=== PATIENT | female | born 1975 | race Caucasian/White ===

== ENCOUNTER 2016-08-25 11:23 | Outpatient (CLI) | payer BC ==
[~2016-08-25] VITALS: Ht 162.6 cm; Wt 88.0 kg
[~2016-08-25 11:23] MED LIST: HMLI SC; METF-384 PO
--- NOTE | 2016-08-25 13:53 | DIAGNOSTIC IMAGING REPORT ---
Limited ultrasound LIMITED (US) CLINICAL HISTORY: vag leaking of fluid. Neg FERN. amnios ure fluid leak TECHNIQUE: Transabdominal ultrasound COMPARISON STUDY: None FINDINGS: Amniotic fluid index 16.2 cm. Fundal placenta. Single, viable intrauterine in cephalic presentation. heart rate 155 bpm. The terminal cervix is nonvisualized IMPRESSION: 1. Nonvisualization of the maternal cervix. 2. Single, viable intrauterine in cephalic presentation. 3. Amniotic fluid index 16.2 cm Electronically signed by: Lamine Bennett M.D. 08/25/2016 1:51 PM Dictated Date/Time: 08/25/2016 1:48 PM
[2016-08-25 14:25] VITALS: Ht 162.6 cm; Wt 88.0 kg
--- NOTE | 2016-08-25 14:46 | Progress Note ---
Progress Note Pt seen and evaluated for ?PPROM at 31 + weeks NST CAT1 Ctx; None VE; closed/thick /post No gross pooling. neg fern, neg Amniosure MABLE ; >16 Pt discharged home with instructions
--- NOTE | 2016-08-25 14:48 | Discharge Instructions ---
Discharge Instructions Admission Reason for Admission: Contractions Discharge Discharge Diagnosis / Problem: r/o premature rapture of membranes Discharge Goals Goal(s): Continuing OB care Activity Recommendations Activity Limitations: as noted below ACTIVITY RECOMMENDATIONS: See Labor Sheet. SPECIAL CARE INSTRUCTIONS: Call Doctor if: * Regular contractions every 5 minutes or greater than contractions in one hour. * Bleeding * Water breaks or is leaking * Decreased movement * Fever >100.4 degrees F * Pain not relieved by routine measures or pain medication ordered. FOLLOW UP VISIT: Return to Labor and Delivery on for /call for appointment time . Follow-up Visit with: When: . Current Hospital Diet Patient's current hospital diet: Regular OB Diet Discharge Diet Recommended Diet: Regular Diet Pending Studies Studies pending at discharge: no Medical Emergencies . Who to Call and When: Medical Emergencies: If at any time you feel your situation is an emergency, please call 911 immediately. . Non-Emergent Contact Non-Emergency issues call your: Specialist . . "Provider Documentation" section prepared by Ricky Magallanes. VTE Core Measure Inpt VTE Proph given/why not?: Treatment not indicated
[2016-08-25] MEDS ORDERED: INSDGI SC (15:01)
[2016-08-25] MEDS ORDERED: NVLG (15:01)
== END 2016-08-25 14:50 | disposition home or self-care (01) ==
LOC: C.LD 11:23 → C.OPB 11:23
PROVIDERS: ATTEND Obstetrics & Gynecology
DX: Z34.83 Encounter for supervision of other normal pregnancy, third trimester (principal)

== ENCOUNTER → 2017-10-05 | Outpatient (CLI) | payer OTHER ==
[~2017-10-05] MED LIST changes: -HMLI SC; +INSDGI SC; -METF-384 PO; +NVLG
--- NOTE | 2017-10-05 15:38 | DIAGNOSTIC IMAGING REPORT ---
LUMBAR SPINE MRI HISTORY: ACUTE DONNELL LOW BACK PAIN/L SIDED SCIATICA TECHNIQUE: Multiplanar multisequence MRI of the lumbar spine was performed without the use of contrast. COMPARISON: None. FINDINGS: For the purpose of the report the L5-S1 disc space will be located on axial image 23 of 25. No fracture or subluxation. The conus terminates at the T12-L1 disc space. Disc desiccation at L4-L5. Severe disc space narrowing at L5-S1. Endplate signal abnormality and mild paravertebral edema at L5-S1 is likely due to the degenerative change. There are no bony erosions identified. Mild facet degenerative changes at the lower lumbar spine. L1-L2: No significant central canal or neural foraminal narrowing. L2-L3: No significant central canal or neural foraminal narrowing. L3-L4: No significant central canal or neural foraminal narrowing. L4-L5: Small focal central disc protrusion without significant central canal or neural foraminal narrowing. This does not abut the transiting nerve roots. L5-S1: There is a 12 x 6 mm central/left paracentral focal disc protrusion which abuts the transiting left S1 nerve root. This results in mild central canal narrowing. No significant neural foraminal narrowing. IMPRESSION: 1. A 12 x 6 mm central/left paracentral focal disc protrusion at L5-S1 which abuts the transiting left S1 nerve root and results in mild central canal narrowing. 2. A small focal central disc protrusion at L4-L5 without significant central canal or neural foraminal narrowing. Electronically signed by: Gonzalez Edge M.D. 10/05/2017 3:37 PM Dictated Date/Time: 10/05/2017 3:31 PM
== END | disposition home or self-care (01) ==
LOC: C.MRI 14:47
PROVIDERS: ATTEND Family Medicine
DX: R29.898 Other symptoms and signs involving the musculoskeletal system (principal); M54.42 Lumbago with sciatica, left side; M51.27 Other intervertebral disc displacement, lumbosacral region

== ENCOUNTER 2019-06-21 09:46 | Inpatient (IN) ==
[2019-06-21] MEDS ORDERED: SODIUM CHLORIDE 0.9% 1000ML 1,000 ML IV SCH ×2 (10:30→15:15)
--- NOTE | 2019-06-21 10:48 | XRay Report ---
XR chest 1V portable CLINICAL HISTORY: weakness dyspnea COMPARISON STUDY: No previous studies for comparison. FINDINGS: The bones soft tissues and hemidiaphragms are normal. The cardiomediastinal silhouette is n ormal. The lungs are clear. The pulmonary vasculature is normal. IMPRESSION: Negative chest. The above report was generated using voice recognition software. It may contain grammatical, syntax or spelling errors. Electronically signed by: Lamine Bennett M.D. 06/21/2019 10:47 AM
[2019-06-21 11:19] LABS: Basophils # (auto) 0.02 K/uL (0-0.2); Basophils % (auto) 0.3 %; Eosinophils # (auto) 0.03 K/uL (0-0.5); Eosinophils % (auto) 0.4 %; Hematocrit (blood only) 44.2 % (37-47); Hemoglobin 15.9 g/dL (12.0-16.0); Immature Granulocytes # (auto) 0.03 K/uL (0.00-0.02); Immature Granulocytes % (auto) 0.4 %; Lymphocytes # (auto) 1.74 K/uL (1.2-3.4); Lymphocytes % (auto) 24.3 %; Mean Corpuscular Hemoglobin 30.3 pg (25-34); Mean Corpuscular Volume 84.2 fL (80-100); Mean Platelet Volume 11.6 fL (7.4-10.4); Monocytes # (auto) 0.34 K/uL (0.11-0.59); Monocytes % (auto) 4.8 %; Neutrophils # (auto) 4.99 K/uL (1.4-6.5); Neutrophils % (auto) 69.8 %; Platelet Count 228 K/uL (130-400); RDW Coefficient of Variation 13.6 % (11.5-14.5); RDW Standard Deviation 41.7 fL (36.4-46.3); Red Blood Count 5.25 M/uL (4.2-5.4); White Blood Count 7.15 K/uL (4.8-10.8)
[2019-06-21 11:48] LABS: Alanine Aminotransferase 18 U/L (12-78); Albumin Level 3.7 gm/dl (3.4-5.0); BUN Creatinine Ratio 15.8 (10-20); Blood Urea Nitrogen 14 mg/dl (7-18); Carbon Dioxide 11 mmol/L (21-32); Chloride 107 mmol/L (98-107); Creatinine Clr Calc Pharmacy 73.5 ml/min; Est GFR (African American) 95.9; Est GFR (Non-African American) 82.7; Glucose 305 mg/dl (70-99); Sodium 135 mmol/L (136-145)
[2019-06-21 11:53] LABS: Albumin Globulin Ratio 0.9 (0.9-2); Alkaline Phosphatase 161 U/L (45-117); Bilirubin,Total 0.7 mg/dl (0.2-1); Globulin 4.1 gm/dl (2.5-4.0); Total Protein 7.8 gm/dl (6.4-8.2)
--- NOTE | 2019-06-21 12:11 | History & Physical Report ---
Date of Service June 21, 2019 Assessment & Plan (1) DKA (diabetic ketoacidoses): (2) DM type 1 (diabetes mellitus, type 1): (3) DVT prophylaxis: History of Present Illness Primary Care Provider: Bernadette Canales DO Allergies Allergy/AdvReac Type Severity Reaction Status Date / Time erythromycin base Allergy Unknown hives Verified 06/21/19 11:15 Home Medications Home Medications Medication Instructions Recorded Confirmed Type acetaminophen [Tylenol Extra 500 mg PO Q6H PRN 06/21/19 06/21/19 History Strength] gabapentin 300 mg PO TID PRN 06/21/19 06/21/19 History Past Med/Surg History Social History Feels Safe at Home: Yes Smoking Status: Never smoker Results & Data Vital Signs (Past 12 Hours) Vital Signs Pulse Resp BP Pulse Ox 06/21/19 10:22 99 06/21/19 09:51 107 H 22 121/86 99 Diagnostic Findings XR chest 1V portable CLINICAL HISTORY: weakness dyspnea COMPARISON STUDY: No previous studies for comparison. FINDINGS: The bones soft tissues and hemidiaphragms are normal. The cardiomediastinal silhouette is normal. The lungs are clear. The pulmonary vasculature is normal. IMPRESSION: Negative chest. ECG Additional Comments: 21-JUN-2019 10:29:38 [facility]-EDSTAT ROUTINE RETRIEVAL Sinus tachycardia Possible Left atrial enlargement Nonspecific T wave abnormality Abnormal ECG No previous ECGs available 25mm/s 10mm/mV 150Hz 9.0.9 12SL 241 ALEX: 3 Referred by: REFERRED SELF Unconfirmed Vent. rate 101 BPM FL interval 126 ms QRS duration 80 ms QT/QTc 338/438 ms P-R-T axes 50 66 19 PG Care Time/CCT Total # of Minutes Spent Total Time Spent with Patient: Total time spent is greater than 50% in coordination of care (as documented) at patient's floor/unit and/or counseling patient:
[2019-06-21] MEDS ORDERED: SODIUM CHLORIDE 0.9% 1000ML 1,000 ML IV ONE (12:22)
[2019-06-21 13:08] LABS: Appearance Urine Clear (Clear); Bacteria Urine Automated Negative (Negative); Bilirubin Urine Negative (Negative); Blood Urine Negative (Negative); Color Urine Yellow; Glucose Urine UA 3+ (Negative); Leukocyte Esterase Urine Negative (Negative); Nitrite Urine Negative (Negative); Protein Urine 1+ (Negative); RBC Urine Automated 0-4 /hpf (0-4); Specific Gravity Urine 1.038 (1.000-1.030); Urobilinogen Urine Negative (Negative)
[2019-06-21 13:10] LABS: Magnesium 1.9 mg/dl (1.8-2.4)
[2019-06-21 13:18] LABS: Ketones Urine 4+ (Negative)
[2019-06-21] MEDS ORDERED: CARBOHYDRATES FOR HYPOGLYCEMIA PO PRN (13:25)
[2019-06-21] MEDS ORDERED: GLUCOSE 10 TABS/TUBE PO PRN (13:25)
[2019-06-21] MEDS ORDERED: GLUCAGON FOR INJ 1 MG VIAL SQ PRN (13:25)
[2019-06-21] MEDS ORDERED: DEXTROSE 50% 50 ML SYRINGE IV PRN (13:25)
[2019-06-21] MEDS ORDERED: GLUCOSE 40% GEL 15 GM TUBE PO PRN (13:25)
[2019-06-21] MEDS ORDERED: ED DKA INSULIN DRIP ONE (13:25)
[2019-06-21] MEDS ORDERED: INSULIN REGULAR 250 UNITS in SODIUM CHLORIDE 0.9% 247.5 ML IV SCH ×2 (13:30→21:00)
[2019-06-21] MEDS ORDERED: D5W AND 1/2NSS + 20MEQ KCL 20 MEQ/1,000 ML BAG IV SCH (13:30)
[2019-06-21] MEDS ORDERED: DKA GOAL RANGE 150-250 mg/dl ONE ×2 (13:31→21:03)
[2019-06-21] MEDS ORDERED: NovoLIN-R BOLUS FROM BAG IV ONE (13:45)
[2019-06-21 13:47] LABS: Estimated Average Glucose 358 mg/dl; Hemoglobin A1C 14.1 % (4.5-5.6)
[2019-06-21 13:49] LABS: Phosphorus 2.4 mg/dl (2.5-4.9)
--- NOTE | 2019-06-21 14:02 | History & Physical Report ---
Date of Service June 21, 2019 Assessment & Plan (1) DKA (diabetic ketoacidoses): (2) High anion gap metabolic acidosis: This is a 43 yr old F who has significant PMH of type 1.5DM, neuropathy, HLD, hx of gastric bypass who presents to [facility] 08/19 to ill feeling and hyperglycemia. She complains of nausea, polydipsia, polyuria, weakness, arthralgias and myalgias that started Tuesday. In ED inital glucose was 326, tachycardic but otherwise hemodynamically stable. CBC relatively unremarkable, K 4.0, AG 17, CO2 11, Cr 0.87, phos 2.4, A1C 14.1, UA +4 ketones, +1 protein, Spec grav 1.038 CXR no acute abnormality. Received 1.5L of IVF upon my examination with improvement in glucose to 221. ABG and repeat BMP ordered which revealed pH 7.26, CO2 21, bicarb 9, gap improving to 14 admit to PCU Give 6 units bolus insulin x1 now Insulin regimen Lantus/Novolog regimen as per Dr. 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 Canales upon discharge; pt also needs follow up with endocrinology at discharge for initial eval Patient was seen and examined in collaboration with Dr. Mike, please see addendum History of Present Illness Chief Complaint: Ill feeling and hyper Primary Care Provider: Bernadette Canales, DO This is a 43 yr old F who has significant PMH of type 1.5DM, neuropathy, HLD, hx of gastric bypass who presents to [facility] 08/19 to ill feeling and hyperglycemia. She complains of nausea, polydipsia, polyuria, weakness, arthralgias and myalgias that started Tuesday. Further developed SOB with exertion since last evening. Sx continued to worsen with profound hyperglycemia which prompted ED evaluation. She was dx at age 30 with diabetes initially treated with metformin and long acting insulin. Had gastric bypass in 2012 in hopes to cure diabetes. For past several months tried to tx diabetes with diet alone, specifically ketogenic diet. "I know its not working, I know I need insulin." She has been off insulin regimen for past several months. Denies any recent illness. Denies fever, sweats, URI sx, cough, hemopytsis, chest pain, sob at rest, palpitations, emesis, diarrhea, dysuria, hematuria, melena, hematochezia. Overall appetite has been normal. Previously has seen end worker in [place], but most recently has been managed by PCP. In ED inital glucose was 326, tachycardic but otherwise hemodynamically stable. CBC relatively unremarkable, K 4.0, AG 17, CO2 11, Cr 0.87, phos 2.4, A1C 14.1, UA +4 ketones, +1 protein, Spec grav 1.038 CXR no acute abnormality. Received 1.5L of IVF upon my examination with improvement in glucose to 221. Allergies Allergy/AdvReac Type Severity Reaction Status Date / Time erythromycin base Allergy Unknown hives Verified 06/21/19 11:15 Home Medications Home Medications Medication Instructions Recorded Confirmed Type acetaminophen [Tylenol Extra 500 mg PO Q6H PRN 06/21/19 06/21/19 History Strength] cholecalciferol (vitamin D3) 2,000 unit PO DAILY 06/21/19 06/21/19 History [Vitamin D3] cyanocobalamin (vitamin B-12) 1,000 mcg PO DAILY 06/21/19 06/21/19 History [Vitamin B-12] gabapentin 300 mg PO TID PRN 06/21/19 06/21/19 History Past Med/Surg History Medical History Diabetes mellitus type 1.5 HLD (hyperlipidemia) Neuropathy, diabetic Surgical History History of x 2 History of gastric bypass 2012 @ [facility] [place] Family History Grandmother (Maternal) Diabetes Father Coronary heart disease Stroke Hx of CABG Mother Levi Ruby infection Sister Hypothyroidism Social History Preferred Language: Bulgarian Communication Ability: Effective 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 Employment Required: No Beliefs That Will Affect Care: None marital status: Current Living Situation: Spouse current occupational status: employed Other Information That Helps Us Care for You: No Feels Safe at Home: Yes Safety Concerns: Feels Safe At This Time Smoking Status: Never smoker Do You Dip or Chew Tobacco: No ; Second Hand Exposure: No ; Tobacco Cessation Education Requested by Patient: No Hx Alcohol Use: No Hx Substance Use: No Review of Systems Review of Systems: All systems reviewed & are unremarkable except as noted in HPI & below Physical Exam Physical Exam: CONSTITUTIONAL: WNWD, vitals as above, generally well- appearing EYES: EOMI bilaterally, PERRL, normal conjunctivae, no scleral icterus ENT: external ear and nose normal, oropharynx clear NECK: trachea midline RESPIRATORY: clear to auscultation bilaterally, no crackles, rales or wheezes, normal respiratory effort CARDIOVASCULAR: regular rate and rhythm, S1 and 2 heard without murmurs, gallops or rubs, no JVD, no peripheral edema GASTROINTESTINAL: normal bowel sounds, soft, nontender, nondistended MUSCULOSKELETAL: strength 5/5 throughout, head is normocephalic and atraumatic SKIN: warm and dry NEUROLOGIC: CN 2-12 grossly intact, no sensory deficit, normal cognition, normal speech PSYCHIATRIC: alert cooperative and oriented to person, place and time. Results & Data Vital Signs (Past 12 Hours) Vital Signs Pulse Resp BP Pulse Ox 06/21/19 10:22 99 06/21/19 09:51 107 H 22 121/86 99 Laboratory Results Short CBC 06/21/19 06/21/19 06/21/19 Range/Units 10:50 10:50 12:32 WBC 7.15 (4.8-10.8) K/uL Hgb 15.9 (12.0-16.0) g/dL Hct 44.2 (37-47) % Plt Count 228 (130-400) K/uL Potassium TNP 4.0 Glucose 305 H* (70-99) mg/dl AST TNP Beta-Hydroxybutyric Acd (0.2-2.81) mg/dl BMP 06/21/19 06/21/19 10:50 12:32 Sodium 135 L Potassium TNP 4.0 Chloride 107 Carbon Dioxide 11 L BUN 14 Creatinine 0.87 Glucose 305 H* Calcium 9.0 Liver Function 06/21/19 06/21/19 Range/Units 10:50 12:32 Total Bilirubin 0.7 (0.2-1) mg/dl AST TNP 13 L ALT 18 (12-78) U/L Alkaline Phosphatase 161 H (45-117) U/L Albumin 3.7 (3.4-5.0) gm/dl Urine 06/21/19 Range/Units 12:15 Urine Color Yellow Urine Appearance Clear (Clear) Urine pH 5.0 (4.5-7.5) Ur Specific [employer] 1.038 H (1.000-1.030) Urine Protein 1+ H (Negative) Urine Glucose (UA) 3+ H (Negative) Diagnostic Findings CXR: IMPRESSION: Negative chest. Medications Administered Discontinued Medications Sodium Chloride (Nss 1000ml) 1,000 mls @ 999 mls/hr IV .Q1H1M TRINY Stop: 06/21/19 11:30 Last Infusion: 06/21/19 12:01 Dose: 0 mls/hr Documented by: [id number] Admin: 06/21/19 10:54 Dose: 999 mls/hr Documented by: [id number] Sodium Chloride (Nss 1000ml) 1,000 mls @ 999 mls/hr IV .Q1H1M ONE Stop: 06/21/19 13:22 Last Admin: 06/21/19 12:44 Dose: 999 mls/hr Documented by: [id number] ECG Rate (beats per minute): 101 Rhythm: sinus tachycardia Code Status & VTE Plan Code Status Full Code VTE Prophylaxis Plan VTE Prophylaxis will be ordered: Yes Supervising Physician Co-Signing Physician Notes I have seen and examined the patient and have discussed the case with the provider above. I agree with the assessment and plan as stated. 43 yo F with DM thought to be EMIR who presents in DKA with a HbA1C 14. She has been managing her diabetes with a ketogenic diet for many months now, but describes worsening SOB, neuropathy in her lower extremities, polydipsia and polyuria recently prompting her to present. Physical exam reveals a healthy and well- appearing oriented female in no acute distress. She denies any symptoms of infection. Lungs are clear to auscultation without increased respiratory effort, heart exam is normal, abdomen is soft, nontender and nondistended. We discussed the importance of being on insulin therapy on discharge and moving forward, and she verbalized understanding with intent to comply. Assessment is DKA in a Type 1.5 (EMIR) Diabetic patient 2/2 noncompliance with insulin therapy. Agree with plan as above to continue with basal/bolus insulin therapy while hospitalized including carbohydrate coverage for meals. Trend labwork again this evening to ensure pH and BMP components are trending in the right direction. She is clinically well and with a closed gap and improved bicarbonate and pH, tolerating food she will likely be well enough for discharge in the next 1-2 days. PCP for follow-up of annual eye screening and monitoring for proteinuria. Goal A1C 6.5 in the next 3-6 months. Rashid,
[2019-06-21] MEDS ORDERED: NovoLIN-R INSULIN PER UNIT CHARGE IV ONE (14:15)
[2019-06-21 14:30] LABS: Base Excess ABG -15.8 mEq/L (-9-1.8); HCO3 ABG 9 mmol/L (19-24); Oxygen Saturation ABG 96.6 % (90-95); PCO2 ABG 21 mmHg (35-46); PO2 ABG 90 mm/Hg (80-95); pH ABG 7.26 (7.35-7.45)
[2019-06-21 14:31] LABS: Allen Test Pos (Pos)
[2019-06-21 14:39] LABS: BUN Creatinine Ratio 16.3 (10-20); Creatinine Clr Calc Pharmacy 92.7 ml/min; Est GFR (African American) 125.3; Est GFR (Non-African American) 108.1
[2019-06-21] MEDS ORDERED: ONDANSETRON INJ 2 MG/ML 2 ML VIAL IV PRN (16:10)
[2019-06-21] MEDS ORDERED: GABAPENTIN 300 MG CAP PO PRN (16:10)
[2019-06-21] MEDS ORDERED: INSULIN ASPART 100 UNITS/ML 3 ML PEN SC SCH ×3 (16:30→21:00)
[2019-06-21] MEDS: ACETAMINOPHEN 325 MG TAB PO PRN (17:29)
--- NOTE | 2019-06-21 17:45 | Emergency Department Note ---
Entered by Babak Taylor acting as a scribe for History of Present Illness General Chief complaint: Hyperglycemia Stated complaint: DIABETIC COMPLICATIONS,HYPERGLYCEMIA,WEAK&TIRED Time Seen by Provider: 06/21/19 10:16 Source: patient History of Present Illness Provider complaint: Hyperglycemia Onset (ago): hour(s) (This morning) Location: head Severity: similar to prior episodes Pain Consistency: + constant Maximum Pain Intensity: 8 Current Pain Intensity: 8 Relieved By: + none Exacerbated By: + other (Exertion) Associated symptoms: + shortness of breath, + weakness and + other (Increased ur ination) The patient is a 43 year old female w/ PMHx PPROM, incomplete miscar riage, and type 1 diabetes, who presents to the ED w/ CC of constant hyperglycemia that she noticed this morning. The patient states that her sugar this morning was 367 and she feels similar to her past episodes of hyperglycemia. She also notes that she was fasting for blood work that was supposed to be done today when this read was taken. The patient endorses generalized weakness and fatigue as well as increased urinary output. The patient also is short of breath, especially when she is exerting herself or moving. The patient rates her symptoms as an 8/10 and notes nothing has helped relieve them. The patient is an insulin dependent diabetic but has not been taking insulin for the past couple of months due to financial reasons and how it makes her feel. She denies any chest pain. Home Medications Home Medications Medication Instructions Recorded Confirmed Type acetaminophen [Tylenol Extra 500 mg PO Q6H PRN 06/21/19 06/21/19 History Strength] cholecalciferol (vitamin D3) 2,000 unit PO DAILY 06/21/19 06/21/19 History [Vitamin D3] cyanocobalamin (vitamin B-12) 1,000 mcg PO DAILY 06/21/19 06/21/19 History [Vitamin B-12] gabapentin 300 mg PO TID PRN 06/21/19 06/21/19 History Allergies Allergy/AdvReac Type Severity Reaction Status Date / Time erythromycin base Allergy Unknown hives Verified 06/21/19 11:15 Past Med/Surg History Medical History Diabetes mellitus type 1.5 HLD (hyperlipidemia) Neuropathy, diabetic Surgical History History of x 2 History of gastric bypass 2013 [place] [facility] [place] Family History Grandmother (Maternal) Diabetes Father Coronary heart disease Stroke Hx of CABG Mother Levi Ruby infection Sister Hypothyroidism Social History Preferred Language: Sinhala Communication Ability: Effective 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 and A total of 10 systems reviewed and were otherwise negative Physical Exam Vital Signs Vital Signs - 24 hr 06/21/19 09:51 06/21/19 10:00 06/21/19 10:22 Temperature Source Oral Pulse Rate 107 H Respiratory Rate 22 Respiratory Effort / Characteristics Non-Labored Spontaneous Respiratory Depth Normal Blood Pressure 121/86 Blood Pressure Mean 97 Blood Pressure Position Sitting Pulse Oximetry 99 99 Oxygen Delivery Method Room Air Room Air Sepsis Recent Fever Within 48 Hours No Sepsis Action Taken by Nursing No Action Required 06/21/19 10:52 06/21/19 10:54 06/21/19 11:00 Temperature Source Pulse Rate 94 H 93 H 92 H Respiratory Rate 15 19 21 Respiratory Effort / Characteristics Respiratory Depth Blood Pressure 140/93 129/98 Blood Pressure Mean 102 106 Blood Pressure Position Pulse Oximetry Oxygen Delivery Method Sepsis Recent Fever Within 48 Hours Sepsis Action Taken by Nursing 06/21/19 11:01 06/21/19 11:30 06/21/19 12:00 Temperature Source Pulse Rate 97 H 88 93 H Respiratory Rate 15 15 Respiratory Effort / Characteristics Respiratory Depth Blood Pressure 133/79 Blood Pressure Mean 106 Blood Pressure Position Pulse Oximetry Oxygen Delivery Method Sepsis Recent Fever Within 48 Hours Sepsis Action Taken by Nursing 06/21/19 12:39 06/21/19 13:00 06/21/19 13:01 Temperature Source Pulse Rate 101 H 89 97 H Respiratory Rate 20 17 14 Respiratory Effort / Characteristics Respiratory Depth Blood Pressure 135/94 Blood Pressure Mean 104 Blood Pressure Position Pulse Oximetry Oxygen Delivery Method Sepsis Recent Fever Within 48 Hours Sepsis Action Taken by Nursing 06/21/19 13:30 06/21/19 13:31 06/21/19 14:00 Temperature Source Pulse Rate 103 H 102 H 90 Respiratory Rate 17 Respiratory Effort / Characteristics Respiratory Depth Blood Pressure 162/95 H 138/90 Blood Pressure Mean 114 107 Blood Pressure Position Pulse Oximetry Oxygen Delivery Method Sepsis Recent Fever Within 48 Hours Sepsis Action Taken by Nursing 06/21/19 14:01 06/21/19 14:30 06/21/19 14:31 Temperature Source Pulse Rate 91 H 93 H 94 H Respiratory Rate 21 16 20 Respiratory Effort / Characteristics Respiratory Depth Blood Pressure 137/84 Blood Pressure Mean 91 Blood Pressure Position Pulse Oximetry Oxygen Delivery Method Sepsis Recent Fever Within 48 Hours Sepsis Action Taken by Nursing GENERAL: Fatigued appearing, well nourished, non-toxic. EYE EXAM: Normal conjunctiva. PERRL, no anisocoria and EOM's grossly intact w/o pain. OROPHARYNX: Moist mucus membranes. Grossly normal dentition. NECK: Supple, no nuchal rigidity, no adenopathy, non-tender. No signs of meningismus. LUNGS: Clear to auscultation. Normal chest wall mechanics. HEART: NSR, no MRG. ABDOMEN: Abdomen soft, non-tender, normo-active bowel sounds, no masses, no rebound or guarding. BACK: No CVA TTP. SKIN: No rashes and no bruising. UPPER EXTREMITIES: Upper extremities are grossly normal. LOWER EXTREMITIES: No pitting edema. No calf pain. NEURO EXAM: A&O x3, cranial nerves II-XII grossly intact, normal speech, moves all 4 extremities on command w/o issue. Course Course 1030: Past medical records reviewed. The patient was evaluated in room A11A, and a complete history and physical examination were performed. 1138: I updated the patient with results and the plan of care which she is agreeable with. 1210: I spoke to Dr. Dimas Cee [facility] Hospitalist about the patient's case and she agreed to accept the patient for further evaluation. Consultations Consultation #1: I spoke to Dr. Dimas Cee [facility] Hospitalist about the patient's case and she agreed to accept the patient for further evaluation. Time: 12:10 Administered Medications Acetaminophen (Tylenol) 650 mg PO Q4H PRN PRN Reason: Pain or Fever Stop: 07/21/19 16:09 Last Admin: 06/21/19 17:29 Dose: 650 mg Documented by: [id number] Sodium Chloride (Nss 1000ml) 1,000 mls @ 150 mls/hr IV .Q6H40M [facility] Stop: 06/21/19 21:54 Last Admin: 06/21/19 16:01 Dose: 150 mls/hr Documented by: [id number] Insulin Aspart (Novolog Flexpen) 0 units SC ACHS [facility] Stop: 07/21/19 16:29 Last Admin: 06/21/19 17:20 Dose: 4 units Documented by: [id number] Cosigned by: [id number] Discontinued Medications Sodium Chloride (Nss 1000ml) 1,000 mls @ 999 mls/hr IV .Q1H1M [facility] Stop: 06/21/19 11:30 Last Infusion: 06/21/19 12:01 Dose: 0 mls/hr Documented by: [id number] Admin: 06/21/19 10:54 Dose: 999 mls/hr Documented by: [id number] Sodium Chloride (Nss 1000ml) 1,000 mls @ 999 mls/hr IV .Q1H1M ONE Stop: 06/21/19 13:22 Last Infusion: 06/21/19 14:20 Dose: 0 mls/hr Documented by: [id number] Admin: 06/21/19 12:44 Dose: 999 mls/hr Documented by: [id number] Insulin Human Regular 250 (units/ Sodium Chloride) 250 mls @ 6.3 mls/hr IV .Q24H [facility]; Protocol Stop: 07/21/19 13:29 Last Admin: 06/21/19 15:18 Dose: Not Given Documented by: [id number] Potassium Chloride/Dextrose/Sod Cl (D5w And 1/2nss + 20meq Kcl) 20 meq in 1,000 mls @ 250 mls/hr IV .Q4H [facility] Stop: 07/21/19 13:29 Last Infusion: 06/21/19 16:12 Dose: 0 mls/hr Documented by: [id number] Admin: 06/21/19 15:15 Dose: 250 mls/hr Documented by: [id number] Insulin Human Regular (Novolin R U-100 Per Unit) 6 units IV NOW ONE Stop: 06/21/19 14:16 Last Admin: 06/21/19 15:16 Dose: 6 units Documented by: [id number] Cosigned by: [id number] Miscellaneous (Insulin Protocol Dka Goal Range) 1 ea N/A ONE ONE Stop: 06/21/19 13:32 Last Admin: 06/21/19 15:18 Dose: Not Given Documented by: [id number] Critical Care Time Critical Care Time: Yes Total Critical Care Time: 90 I have personally spent greater than 90 minutes of critical care time in the direct management of this patient. This includes bedside care, interpretation of diagnostic studies, and testing, discussion with consultants, patient, and family members, and other required patient management activities. This 90 minutes is in excess of all separately billable procedures. Medical Decision Making Differential Diagnosis Differential Diagnosis includes but is not limited to dehydration, stroke, anemia, hypoglycemia, hyponatremia, hypernatremia, urinary tract infection, pneumonia, bronchitis, sepsis, gastroenteritis, additional abdominal pathology, metabolic abnormalities and infections. Medical Records Attestation: I reviewed the patient's medical records. Home Medications Current Medication List: was personally reviewed by me Laboratory Data Attestation: I reviewed the patient's lab results. Result diagrams: 06/21/19 10:50 06/21/19 13:57 Lab Results 06/21/19 06/21/19 06/21/19 Range/Units 10:09 10:10 10:50 WBC 7.15 (4.8-10.8) K/uL RBC 5.25 (4.2-5.4) M/uL Hgb 15.9 (12.0-16.0) g/dL Hct 44.2 (37-47) % MCV 84.2 (80-100) fL MCH 30.3 (25-34) pg MCHC 36.0 (32-36) g/dL RDW Std Deviation 41.7 (36.4-46.3) fL RDW Coeff of Jocelyn 13.6 (11.5-14.5) % Plt Count 228 (130-400) K/uL MPV 11.6 H (7.4-10.4) fL Immature Gran % (Auto) 0.4 % Neut % (Auto) 69.8 % Lymph % (Auto) 24.3 % [place] % (Auto) 4.8 % Eos % (Auto) 0.4 % Baso % (Auto) 0.3 % Immature Gran # (Auto) 0.03 H (0.00-0.02) K/uL Neut # (Auto) 4.99 (1.4-6.5) K/uL Lymph # (Auto) 1.74 (1.2-3.4) K/uL [place] # (Auto) 0.34 (0.11-0.59) K/uL Eos # (Auto) 0.03 (0-0.5) K/uL Baso # (Auto) 0.02 (0-0.2) K/uL ABG pH (7.35-7.45) ABG pCO2 (35-46) mmHg ABG pO2 (80-95) mm/Hg ABG HCO3 (19-24) mmol/L ABG O2 Saturation (90-95) % ABG Base Excess (-9-1.8) mEq/L Luis M Test (Pos) Barometric Pressure mm/Hg Oxygen Given Sodium (136-145) mmol/L Potassium Chloride (98-107) mmol/L Carbon Dioxide (21-32) mmol/L Anion Gap (3-11) BUN (7-18) mg/dl Creatinine (0.6-1.2) mg/dl Est Cr Clr Drug Dosing ml/min Est GFR ( Amer) Est GFR (Non-Af Amer) BUN/Creatinine Ratio (10-20) Glucose (70-99) mg/dl POC Glucose 326 H* 300 H (70-99) Estimat Average Glucose mg/dl Hemoglobin A1c (4.5-5.6) % Lactate (0.4-2.0) mmol/L Calcium (8.5-10.1) mg/dl Phosphorus (2.5-4.9) mg/dl Magnesium Total Bilirubin (0.2-1) mg/dl AST ALT (12-78) U/L Alkaline Phosphatase (45-117) U/L Total Protein (6.4-8.2) gm/dl Albumin (3.4-5.0) gm/dl Globulin (2.5-4.0) gm/dl Albumin/Globulin Ratio (0.9-2) Beta-Hydroxybutyric Acd (0.2-2.81) mg/dl TSH (0.300-4.500) uIu/ml Urine Color Urine Appearance (Clear) Urine pH (4.5-7.5) Ur Specific [place] (1.000-1.030) Urine Protein (Negative) Urine Glucose (UA) (Negative) Urine Ketones (Negative) Urine Blood (Negative) Urine Nitrite (Negative) Urine Bilirubin (Negative) Urine Urobilinogen (Negative) Ur Leukocyte Esterase (Negative) Urine WBC (Auto) (0-5) /hpf Urine RBC (Auto) (0-4) /hpf U Hyaline Cast (Auto) (0-5) /lpf U Epithel Cells (Auto) (0-5) /lpf Urine Bacteria (Auto) (Negative) 06/21/19 06/21/19 06/21/19 Range/Units 10:50 10:50 10:50 WBC (4.8-10.8) K/uL RBC (4.2-5.4) M/uL Hgb (12.0-16.0) g/dL Hct (37-47) % MCV (80-100) fL MCH (25-34) pg MCHC (32-36) g/dL RDW Std Deviation (36.4-46.3) fL RDW Coeff of Jocelyn (11.5-14.5) % Plt Count (130-400) K/uL MPV (7.4-10.4) fL Immature Gran % (Auto) % Neut % (Auto) % Lymph % (Auto) % [place] % (Auto) % Eos % (Auto) % Baso % (Auto) % Immature Gran # (Auto) (0.00-0.02) K/uL Neut # (Auto) (1.4-6.5) K/uL Lymph # (Auto) (1.2-3.4) K/uL [place] # (Auto) (0.11-0.59) K/uL Eos # (Auto) (0-0.5) K/uL Baso # (Auto) (0-0.2) K/uL ABG pH (7.35-7.45) ABG pCO2 (35-46) mmHg ABG pO2 (80-95) mm/Hg ABG HCO3 (19-24) mmol/L ABG O2 Saturation (90-95) % ABG Base Excess (-9-1.8) mEq/L Luis M Test (Pos) Barometric Pressure mm/Hg Oxygen Given Sodium 135 L (136-145) mmol/L Potassium TNP Chloride 107 (98-107) mmol/L Carbon Dioxide 11 L (21-32) mmol/L Anion Gap 17.0 H (3-11) BUN 14 (7-18) mg/dl Creatinine 0.87 (0.6-1.2) mg/dl Est Cr Clr Drug Dosing 73.5 ml/min Est GFR ( Amer) 95.9 Est GFR (Non-Af Amer) 82.7 BUN/Creatinine Ratio 15.8 (10-20) Glucose 305 H* (70-99) mg/dl POC Glucose (70-99) Estimat Average Glucose 358 mg/dl Hemoglobin A1c 14.1 H (4.5-5.6) % Lactate 0.7 (0.4-2.0) mmol/L Calcium 9.0 (8.5-10.1) mg/dl Phosphorus (2.5-4.9) mg/dl Magnesium TNP Total Bilirubin 0.7 (0.2-1) mg/dl AST TNP ALT 18 (12-78) U/L Alkaline Phosphatase 161 H (45-117) U/L Total Protein 7.8 (6.4-8.2) gm/dl Albumin 3.7 (3.4-5.0) gm/dl Globulin 4.1 H (2.5-4.0) gm/dl Albumin/Globulin Ratio 0.9 (0.9-2) Beta-Hydroxybutyric Acd (0.2-2.81) mg/dl TSH 1.150 (0.300-4.500) uIu/ml Urine Color Urine Appearance (Clear) Urine pH (4.5-7.5) Ur Specific [place] (1.000-1.030) Urine Protein (Negative) Urine Glucose (UA) (Negative) Urine Ketones (Negative) Urine Blood (Negative) Urine Nitrite (Negative) Urine Bilirubin (Negative) Urine Urobilinogen (Negative) Ur Leukocyte Esterase (Negative) Urine WBC (Auto) (0-5) /hpf Urine RBC (Auto) (0-4) /hpf U Hyaline Cast (Auto) (0-5) /lpf U Epithel Cells (Auto) (0-5) /lpf Urine Bacteria (Auto) (Negative) 12/05/19 12/05/19 12/05/19 Range/Units 12:15 12:31 12:32 WBC (4.8-10.8) K/uL RBC (4.2-5.4) M/uL Hgb (12.0-16.0) g/dL Hct (37-47) % MCV (80-100) fL MCH (25-34) pg MCHC (32-36) g/dL RDW Std Deviation (36.4-46.3) fL RDW Coeff of Jocelyn (11.5-14.5) % Plt Count (130-400) K/uL MPV (7.4-10.4) fL Immature Gran % (Auto) % Neut % (Auto) % Lymph % (Auto) % [place] % (Auto) % Eos % (Auto) % Baso % (Auto) % Immature Gran # (Auto) (0.00-0.02) K/uL Neut # (Auto) (1.4-6.5) K/uL Lymph # (Auto) (1.2-3.4) K/uL [place] # (Auto) (0.11-0.59) K/uL Eos # (Auto) (0-0.5) K/uL Baso # (Auto) (0-0.2) K/uL ABG pH (7.35-7.45) ABG pCO2 (35-46) mmHg ABG pO2 (80-95) mm/Hg ABG HCO3 (19-24) mmol/L ABG O2 Saturation (90-95) % ABG Base Excess (-9-1.8) mEq/L Luis M Test (Pos) Barometric Pressure mm/Hg Oxygen Given Sodium (136-145) mmol/L Potassium 4.0 Chloride (98-107) mmol/L Carbon Dioxide (21-32) mmol/L Anion Gap (3-11) BUN (7-18) mg/dl Creatinine (0.6-1.2) mg/dl Est Cr Clr Drug Dosing ml/min Est GFR ( Amer) Est GFR (Non-Af Amer) BUN/Creatinine Ratio (10-20) Glucose (70-99) mg/dl POC Glucose (70-99) Estimat Average Glucose mg/dl Hemoglobin A1c (4.5-5.6) % Lactate (0.4-2.0) mmol/L Calcium (8.5-10.1) mg/dl Phosphorus 2.4 L (2.5-4.9) mg/dl Magnesium 1.9 Total Bilirubin (0.2-1) mg/dl AST 13 L ALT (12-78) U/L Alkaline Phosphatase (45-117) U/L Total Protein (6.4-8.2) gm/dl Albumin (3.4-5.0) gm/dl Globulin (2.5-4.0) gm/dl Albumin/Globulin Ratio (0.9-2) Beta-Hydroxybutyric Acd (0.2-2.81) mg/dl TSH (0.300-4.500) uIu/ml Urine Color Yellow Urine Appearance Clear (Clear) Urine pH 5.0 (4.5-7.5) Ur Specific [place] 1.038 H (1.000-1.030) Urine Protein 1+ H (Negative) Urine Glucose (UA) 3+ H (Negative) Urine Ketones 4+ H (Negative) Urine Blood Negative (Negative) Urine Nitrite Negative (Negative) Urine Bilirubin Negative (Negative) Urine Urobilinogen Negative (Negative) Ur Leukocyte Esterase Negative (Negative) Urine WBC (Auto) 1-5 (0-5) /hpf Urine RBC (Auto) 0-4 (0-4) /hpf U Hyaline Cast (Auto) 5-10 H (0-5) /lpf U Epithel Cells (Auto) 10-20 H (0-5) /lpf Urine Bacteria (Auto) Negative (Negative) 06/21/19 06/21/19 06/21/19 Range/Units 12:57 13:46 13:56 WBC (4.8-10.8) K/uL RBC (4.2-5.4) M/uL Hgb (12.0-16.0) g/dL Hct (37-47) % MCV (80-100) fL MCH (25-34) pg MCHC (32-36) g/dL RDW Std Deviation (36.4-46.3) fL RDW Coeff of Jocelyn (11.5-14.5) % Plt Count (130-400) K/uL MPV (7.4-10.4) fL Immature Gran % (Auto) % Neut % (Auto) % Lymph % (Auto) % [place] % (Auto) % Eos % (Auto) % Baso % (Auto) % Immature Gran # (Auto) (0.00-0.02) K/uL Neut # (Auto) (1.4-6.5) K/uL Lymph # (Auto) (1.2-3.4) K/uL [place] # (Auto) (0.11-0.59) K/uL Eos # (Auto) (0-0.5) K/uL Baso # (Auto) (0-0.2) K/uL ABG pH 7.26 L (7.35-7.45) ABG pCO2 21 L (35-46) mmHg ABG pO2 90 (80-95) mm/Hg ABG HCO3 9 L (19-24) mmol/L ABG O2 Saturation 96.6 H (90-95) % ABG Base Excess -15.8 L (-9-1.8) mEq/L Luis M Test Pos (Pos) Barometric Pressure 730.3 mm/Hg Oxygen Given Room Air Sodium (136-145) mmol/L Potassium Chloride (98-107) mmol/L Carbon Dioxide (21-32) mmol/L Anion Gap (3-11) BUN (7-18) mg/dl Creatinine (0.6-1.2) mg/dl Est Cr Clr Drug Dosing ml/min Est GFR ( Amer) Est GFR (Non-Af Amer) BUN/Creatinine Ratio (10-20) Glucose (70-99) mg/dl POC Glucose 242 H 221 H (70-99) Estimat Average Glucose mg/dl Hemoglobin A1c (4.5-5.6) % Lactate (0.4-2.0) mmol/L Calcium (8.5-10.1) mg/dl Phosphorus (2.5-4.9) mg/dl Magnesium Total Bilirubin (0.2-1) mg/dl AST ALT (12-78) U/L Alkaline Phosphatase (45-117) U/L Total Protein (6.4-8.2) gm/dl Albumin (3.4-5.0) gm/dl Globulin (2.5-4.0) gm/dl Albumin/Globulin Ratio (0.9-2) Beta-Hydroxybutyric Acd (0.2-2.81) mg/dl TSH (0.300-4.500) uIu/ml Urine Color Urine Appearance (Clear) Urine pH (4.5-7.5) Ur Specific [place] (1.000-1.030) Urine Protein (Negative) Urine Glucose (UA) (Negative) Urine Ketones (Negative) Urine Blood (Negative) Urine Nitrite (Negative) Urine Bilirubin (Negative) Urine Urobilinogen (Negative) Ur Leukocyte Esterase (Negative) Urine WBC (Auto) (0-5) /hpf Urine RBC (Auto) (0-4) /hpf U Hyaline Cast (Auto) (0-5) /lpf U Epithel Cells (Auto) (0-5) /lpf Urine Bacteria (Auto) (Negative) 06/21/19 Range/Units 13:57 WBC (4.8-10.8) K/uL RBC (4.2-5.4) M/uL Hgb (12.0-16.0) g/dL Hct (37-47) % MCV (80-100) fL MCH (25-34) pg MCHC (32-36) g/dL RDW Std Deviation (36.4-46.3) fL RDW Coeff of Jocelyn (11.5-14.5) % Plt Count (130-400) K/uL MPV (7.4-10.4) fL Immature Gran % (Auto) % Neut % (Auto) % Lymph % (Auto) % [place] % (Auto) % Eos % (Auto) % Baso % (Auto) % Immature Gran # (Auto) (0.00-0.02) K/uL Neut # (Auto) (1.4-6.5) K/uL Lymph # (Auto) (1.2-3.4) K/uL [place] # (Auto) (0.11-0.59) K/uL Eos # (Auto) (0-0.5) K/uL Baso # (Auto) (0-0.2) K/uL ABG pH (7.35-7.45) ABG pCO2 (35-46) mmHg ABG pO2 (80-95) mm/Hg ABG HCO3 (19-24) mmol/L ABG O2 Saturation (90-95) % ABG Base Excess (-9-1.8) mEq/L Luis M Test (Pos) Barometric Pressure mm/Hg Oxygen Given Sodium 137 (136-145) mmol/L Potassium Chloride 113 H (98-107) mmol/L Carbon Dioxide 11 L (21-32) mmol/L Anion Gap 14.0 H (3-11) BUN 11 (7-18) mg/dl Creatinine 0.69 (0.6-1.2) mg/dl Est Cr Clr Drug Dosing 92.7 ml/min Est GFR ( Amer) 125.3 Est GFR (Non-Af Amer) 108.1 BUN/Creatinine Ratio 16.3 (10-20) Glucose 230 H (70-99) mg/dl POC Glucose (70-99) Estimat Average Glucose mg/dl Hemoglobin A1c (4.5-5.6) % Lactate (0.4-2.0) mmol/L Calcium 8.0 L (8.5-10.1) mg/dl Phosphorus (2.5-4.9) mg/dl Magnesium Total Bilirubin (0.2-1) mg/dl AST ALT (12-78) U/L Alkaline Phosphatase (45-117) U/L Total Protein (6.4-8.2) gm/dl Albumin (3.4-5.0) gm/dl Globulin (2.5-4.0) gm/dl Albumin/Globulin Ratio (0.9-2) Beta-Hydroxybutyric Acd (0.2-2.81) mg/dl TSH (0.300-4.500) uIu/ml Urine Color Urine Appearance (Clear) Urine pH (4.5-7.5) Ur Specific [place] (1.000-1.030) Urine Protein (Negative) Urine Glucose (UA) (Negative) Urine Ketones (Negative) Urine Blood (Negative) Urine Nitrite (Negative) Urine Bilirubin (Negative) Urine Urobilinogen (Negative) Ur Leukocyte Esterase (Negative) Urine WBC (Auto) (0-5) /hpf Urine RBC (Auto) (0-4) /hpf U Hyaline Cast (Auto) (0-5) /lpf U Epithel Cells (Auto) (0-5) /lpf Urine Bacteria (Auto) (Negative) Imaging Data Radiologist's Impression: Radiology results as stated below per my review and the radiologist's interpretation: XR chest 1V portable CLINICAL HISTORY: weakness dyspnea COMPARISON STUDY: No previous studies for comparison. FINDINGS: The bones soft tissues and hemidiaphragms are normal. The cardiomediastinal silhouette is normal. The lungs are clear. The pulmonary vasculature is normal. IMPRESSION: Negative chest. The above report was generated using voice recognition software. It may contain grammatical, syntax or spelling errors. Electronically signed by: Lamine Bennett M.D. 06/21/2019 10:47 AM ECG Data Attestation: I personally reviewed and interpreted this ECG as follows: Indication: + SOB/dyspnea Rate (beats per minute): 101 Rhythm: + sinus tachycardia ECG Intervals/blocks: + Normal QRS, + Normal QT, + Normal [place] and + Normal QT-c ECG [place]: + Normal ECG ST segments: no ST depression and no ST elevation ECG Findings: + Other (T wave flattening ) Blood Pressure Blood Pressure Findings: Elevated blood pressure Blood Pressure Disposition: further management by hospitalist KARENA Narrative Patient was seen and evaluated the bedside. The patient was presented with concern for possible DKA as the patient has had increasing urinary frequency fatigue as well as increasing shortness of breath and respiratory rate. The patient is an insulin-dependent diabetic but has not been using insulin for several months. Patient states that the reasons are multifactorial including affordability. The patient did have blood work completed. The patient does have a low bicarb and increased anion gap. Patient's gas does show an associated acidosis. I was waiting on a potassium as it was initially hemolyzed prior to starting an insulin drip. Patient did receive IV fluids. Upon reassessment the patient is not too small breathing. Patient does not appear in extremis. Patient was subsequently ordered an insulin drip and did speak the on-call hospitalist agreed to further evaluate treat the patient. Patient was subsequently admitted to the medicine service. Impression & Plan DKA (diabetic ketoacidoses), Shortness of breath, Fatigue Discharge Plan Visit Data *Final* Discharge Date/Time: 06/21/19 15:20 Chief Complaint: Hyperglycemia Stated Complaint: DIABETIC COMPLICATIONS,HYPERGLYCEMIA,WEAK&TIRED ED Provider: Dakota Edmonds Discharge Problem: DKA (diabetic ketoacidoses), Shortness of breath, Fatigue Patient Disposition: Admitted As Inpatient Discharge Instructions Interventions: ED Discharge Assessment Last Done: 06/21/19 15:20 Discharge Problem: DKA (diabetic ketoacidoses) Qualifiers: Diabetes mellitus type: type 1 Diabetes mellitus complication detail: without coma Qualified Code(s): E10.10 - Type 1 diabetes mellitus with ketoacidosis without coma Fatigue Qualifiers: Fatigue type: unspecified Qualified Code(s): R53.83 - Other fatigue The scribe's documentation has been prepared under my direction and personally reviewed by me in its entirety. I confirm that the note above accurately reflects all work, treatment, procedures, and medical decision making performed by me.
[2019-06-21 19:35] LABS: BUN Creatinine Ratio 10.5 (10-20); Calcium 8.3 mg/dl (8.5-10.1); Creatinine Clr Calc Pharmacy 70.3 ml/min; Est GFR (African American) 90.8; Est GFR (Non-African American) 78.4; Potassium 3.6 mmol/L (3.5-5.1)
[2019-06-21] MEDS ORDERED: INSULIN GLARGINE SOLOSTAR 100 UNITS/ML 3 ML PEN SC SCH (21:00)
[2019-06-21] MEDS: POTASSIUM CHLORIDE 40 MEQ in D5W AND 1/2NSS 1,000 ML/1,000 ML BAG IV SCH (21:39)
[2019-06-22] MEDS: POTASSIUM CHLORIDE 40 MEQ in D5W AND 1/2NSS 1,000 ML/1,000 ML BAG IV SCH (05:37)
[2019-06-22 05:39] LABS: BUN Creatinine Ratio 11.5 (10-20); Calcium 8.3 mg/dl (8.5-10.1); Creatinine Clr Calc Pharmacy 110.5 ml/min; Est GFR (African American) 129.1; Est GFR (Non-African American) 111.4; Magnesium 1.7 mg/dl (1.8-2.4); Phosphorus 1.9 mg/dl (2.5-4.9); Potassium 3.6 mmol/L (3.5-5.1)
[2019-06-22] MEDS ORDERED: PHARMACY GLYCEMIC MGMT CONSULT PRN (05:46)
[2019-06-22] MEDS ORDERED: LACTATED RINGER'S 1,000 ML IV ONE (05:46)
[2019-06-22] MEDS ORDERED: INSULIN GLARGINE SOLOSTAR 100 UNITS/ML 3 ML PEN SC ONE ×2 (06:15→12:00)
[2019-06-22] MEDS: ACETAMINOPHEN 325 MG TAB PO PRN (08:13)
[2019-06-22] MEDS: CHOLECALCIFEROL 1,000 UNITS TAB PO SCH (08:14)
[2019-06-22] MEDS: CYANOCOBALAMIN 500 MCG TABLET (VITAMIN B-12) PO SCH (08:14)
[2019-06-22] MEDS: ENOXAPARIN INJ 40 MG/0.4 ML SYR SQ SCH (08:16)
[2019-06-22] MEDS: INSULIN ASPART 100 UNITS/ML 3 ML PEN SC SCH ×4 (08:17→20:51)
[2019-06-22] MEDS ORDERED: MAGNESIUM SULFATE / D5W 1 GM/100 ML BAG IV ONE (10:11)
[2019-06-22] MEDS ORDERED: POTASSIUM PHOS 3 MMOL/1 ML INFUSION IV STA (10:11)
[2019-06-22] MEDS ORDERED: POTASSIUM PHOSPHATE 15 MMOL in SODIUM CHLORIDE 0.9% 250 ML IV ONE (10:30)
--- NOTE | 2019-06-22 10:38 | Hospitalist Progress Note ---
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): Most recent A1C 14.1 Agreed to discharge on insulin Will follow pharmacy recommendation on discharge Continue monitor BS (4) Electrolyte imbalance: Mg 1.7 ad Phos 1.9 Electrolytes replaced Continue monitor electrolytes (5) DVT prophylaxis: SCD/TEDS Ambulates Code Status Full code Disposition Possible discharge tomorrow Subjective Pt was seen and examined Standing in her room with no distress Pt said that she feels much better She has been walking around with no distress Denies any chest pain, palpitation, dizziness and SOB Physical Exam Physical Exam: General- No acute distress Head- atraumatic Eyes- PERRL, EOMI, ENT- oropharynx clear Neck- supple, no JVD Lungs- clear to auscultation Heart- regular rhythm; no murmur Abdomen- normal bowel sounds, soft, nontender Extremities- no calf tenderness Neuro- alert, oriented x 3; PERRL, EOMI; no facial palsy; no dysarthria Skin- warm & dry Results & Data Vital Signs (Past 12 Hours) Vital Signs Temp Pulse Pulse Resp BP Pulse Ox 06/22/19 07:29 86 06/22/19 07:13 36.7 C 88 16 102/67 99 06/22/19 04:36 103/73 06/22/19 03:41 36.9 C 88 18 95/61 L 98 06/22/19 00:02 92 H 06/21/19 23:00 36.8 C 90 18 110/73 98 (1) DKA (diabetic ketoacidoses) Diabetes mellitus complication detail: without coma Diabetes mellitus type: type 1 Qualified Code(s): E10.10 - Type 1 diabetes mellitus with ketoacidosis without coma
--- NOTE | 2019-06-22 11:22 | Pharmacy Report ---
Glycemic Control Consultation - Date of Service June 22, 2019 - Scope Scope: Glycemic Pharmacist consulted for glycemic control and to write orders per [facility] inpatient glycemic control protocol - Objective Weight: 67 kg Accuchecks BSG (last 24hrs): 06/21/19 06/21/19 06/21/19 10:50 12:57 13:46 Glucose 305 H* POC Glucose 242 H 221 H 06/21/19 06/21/19 06/21/19 13:57 15:16 15:55 Glucose 230 H POC Glucose 217 H 192 H 06/21/19 06/21/19 06/21/19 16:36 19:03 20:07 Glucose 220 H POC Glucose 163 H 227 H 06/21/19 06/21/19 06/21/19 21:34 22:35 23:37 Glucose POC Glucose 209 H 207 H 179 H 06/22/19 06/22/19 06/22/19 00:31 02:30 04:30 Glucose POC Glucose 172 H 168 H 130 H 06/22/19 06/22/19 06/22/19 04:49 05:05 05:12 Glucose 121 H POC Glucose 124 H 127 H 06/22/19 06/22/19 05:19 05:36 Glucose POC Glucose 121 H 138 H Laboratory Data (last 24hrs): 06/21/19 06/21/19 06/21/19 10:50 12:31 12:32 Potassium TNP 4.0 Carbon Dioxide 11 L Anion Gap 17.0 H Creatinine 0.87 Est Cr Clr Drug Dosing 73.5 Beta-Hydroxybutyric Acd 06/21/19 06/21/19 06/22/19 13:57 19:03 05:12 Potassium 3.6 3.6 Carbon Dioxide 11 L 12 L 19 L Anion Gap 14.0 H 13.0 H 5.0 Creatinine 0.69 0.91 0.63 Est Cr Clr Drug Dosing 92.7 70.3 110.5 Beta-Hydroxybutyric Acd HbA1c: Hemoglobin A1c 14.1 % (4.5-5.6) H 06/21/19 10:50 - Recent Pertinent Medications Outpatient Anti-diabetic Regimen: * N/A - attempted to control DM with ketogenic diet The patient is currently receiving: * IV insulin infusion per DKA protocol * Fluids D51/2NS+20Kcl @ 125ml/hr - Assessment & Plan Assessment & Plan: ASSESSMENT: * 43yo possible EMIR/type 1.5 DM female admitted for mild DKA. * Based on A1c and EMIR- patient will need DC on insulin * IV insulin infusion continued for ~18hrs. Pt is still slightly acidotic therefore will initiate very slow transition from IV --> Sq basal bolus. * Will d/c dextrose from IVF for transition and patient eating. Pt still following low CHO diet (eggs and vogel for breakfast) so minimal NovoLog will probably be needed. * Will start with weight based dosing and titrate based on bsg trends. PLAN FOR INPATIENT GLYCEMIC CONTROL: * Transition off of IV insulin infusion per protocol * d/c when held per calculator or 6hrs after first Lantus dose given, whichever happens sooner * Basal insulin * Lantus 15 units SQ daily * Bolus insulin * NovoLog per scale ACHS or Q6hrs while NPO * Goal Range: Low 110 mg/dL - High 150 mg/dL * Correction Factor: 35 mg/dL/unit * Nutritional / Prandial insulin per carb ratio of 1 unit per 12 grams CHO consumed * Please note that the plan above was derived based on current level of insulin resistance and hospital stress. These recommendations are appropriate for inpatient admission only. Plan of care upon discharge will need to be reassessed to avoid potential outpatient hypo/hyperglycemia. Thank you. Looking ahead to Discharge: * A1c = 14.1 % on 06/21/19 * Goal A1c = below 7 % based on age and comorbidities * A reasonable A1C goal for many non- adults is A1c less than 7% * A1c is greater than or equal to 10% consider triple therapy with metformin + basal insulin + (GLP1-RA OR prandial insulin). May need to continue additional antidiabetic agent based on patient specific factors (efficacy, hypo risk, weight gain/loss, side effects, cost) Recommend: * 1. Metformin XR 500mg PO daily with evening meal. Typically the XR formulation of metformin is better tolerated than the immediate release formulation. Continue to titrate metformin dosing upwards as recommended. Dosage increases should be made in increments of 500 mg weekly, up to 2,000 mg/day PO, given in divided doses. Doses above 2000 mg/day may be better tolerated if divided and given 3 times per day with meals. Max: 2,550 mg/day PO, in divided doses * B12 supplementation may be necessary with workforce development program director metformin * Basal insulin: Glargine 15 units SQ daily {dose to be updated 06/23 based on BSGs from 06/22} * GPL1RA: This will be based off of insurance coverage and patient preference of weekly vs daily injection * Patient could start this as an outpatient after Glargine + metformin initiated and titrated. * Prandial insulin: May not be needed d/t low CHO diet. If considered, may just need NovoLog with the largest CHO meal of the day.
[2019-06-23] MEDS: INSULIN ASPART 100 UNITS/ML 3 ML PEN SC SCH ×4 (00:05→12:16)
[2019-06-23] MEDS: CHOLECALCIFEROL 1,000 UNITS TAB PO SCH (07:55)
[2019-06-23] MEDS: CYANOCOBALAMIN 500 MCG TABLET (VITAMIN B-12) PO SCH (07:56)
[2019-06-23] MEDS: ENOXAPARIN INJ 40 MG/0.4 ML SYR SQ SCH (07:56)
[2019-06-23] MEDS ORDERED: INSULIN GLARGINE SOLOSTAR 100 UNITS/ML 3 ML PEN SC SCH (09:00)
[2019-06-23 10:25] LABS: BUN Creatinine Ratio 13.2 (10-20); Calcium 8.9 mg/dl (8.5-10.1); Creatinine Clr Calc Pharmacy 100.4 ml/min; Est GFR (African American) 125.3; Est GFR (Non-African American) 108.1; Magnesium 1.9 mg/dl (1.8-2.4); Potassium 3.2 mmol/L (3.5-5.1)
[2019-06-23 10:36] LABS: Phosphorus 2.9 mg/dl (2.5-4.9)
[2019-06-23] MEDS ORDERED: POTASSIUM CHLORIDE 20 MEQ TABCR PO STA (12:51)
--- NOTE | 2019-06-23 14:27 | Pharmacy Report ---
Pharmacy Glycemic Short Note 2 - Date of Service June 23, 2019 - Glycemic Short BSG Results (Last 24 hours): 06/22/19 06/22/19 06/23/19 16:28 20:19 04:50 Glucose POC Glucose 207 H 233 H 156 H 06/23/19 06/23/19 06/23/19 07:38 09:54 11:25 Glucose 273 H POC Glucose 162 H 223 H Outpatient Anti-diabetic Regimen: * N/A - attempted to control DM with ketogenic diet ASSESSMENT: 06/22/19 * 43yo possible EMIR/type 1.5 DM female admitted for mild DKA. * Based on A1c and EMIR- patient will need DC on insulin * IV insulin infusion continued for ~18hrs. Pt is still slightly acidotic therefore will initiate very slow transition from IV --> Sq basal bolus. * Will d/c dextrose from IVF for transition and patient eating. Pt still following low CHO diet (eggs and vogel for breakfast) so minimal NovoLog will probably be needed. * Will start with weight based dosing and titrate based on bsg trends. 06/23/19 * Patient received a total of 51 units of insulin yesterday, 30 units basal, 21 units bolus * Fasting blood sugar just above goal, will increase dose of Lantus to 30 units daily * Blood sugar rising with meals, will tighten CF/CR * See discharge recommendations below PLAN FOR INPATIENT GLYCEMIC CONTROL: * Basal insulin - INCREASE * Lantus 30 units SQ daily * Bolus insulin * NovoLog per scale ACHS or Q6hrs while NPO * Goal Range: Low 110 mg/dL - High 150 mg/dL * TIGHTEN: Correction Factor: 25 mg/dL/unit * TIGHTEN: Nutritional / Prandial insulin per carb ratio of 1 unit per 8 grams CHO consumed * Please note that the plan above was derived based on current level of insulin resistance and hospital stress. These recommendations are appropriate for inpatient admission only. Plan of care upon discharge will need to be reassessed to avoid potential outpatient hypo/hyperglycemia. Thank you. Looking ahead to Discharge: * A1c = 14.1 % on 06/21/19 * Goal A1c = below 7 % based on age and comorbidities * A reasonable A1C goal for many non- adults is A1c less than 7% * A1c is greater than or equal to 10% consider triple therapy with metformin + basal insulin + (GLP1-RA OR prandial insulin). May need to continue additional antidiabetic agent based on patient specific factors (efficacy, hypo risk, weight gain/loss, side effects, cost) Recommend: * 1. Metformin XR 500mg PO daily with evening meal. Typically the XR formulation of metformin is better tolerated than the immediate release formulation. Continue to titrate metformin dosing upwards as recommended. Dosage increases should be made in increments of 500 mg weekly, up to 2,000 mg/day PO, given in divided doses. Doses above 2000 mg/day may be better tolerated if divided and given 3 times per day with meals. Max: 2,550 mg/day PO, in divided doses * B12 supplementation may be necessary with grievance and appeals coordinator metformin * 2. Basal insulin: Glargine 30 units SQ daily * 3. GPL1RA: This will be based off of insurance coverage and patient preference of weekly vs daily injection * Patient could start this as an outpatient after Glargine + metformin initiated and titrated. * Prandial insulin: May not be needed if using GPL1RA or d/t low CHO diet. If considered, may just need NovoLog with the largest CHO meal of the day.
--- NOTE | 2019-06-23 15:05 | Hospitalist Progress Note ---
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 Continue to titrate metformin dosing upwards as recommended. Basal insulin with Glargine 30 units SQ daily Consider for possible to add GPL1RA outpatient after titrating metformin and Glargine (based off of insurance coverage and patient preference of weekly vs daily injection) Continue monitor BS (4) Electrolyte imbalance: Mg 1.9 and Phos 2.9 K 3.2 Electrolytes replaced Continue monitor electrolytes (5) DVT prophylaxis: SCD/TEDS Ambulates Code Status Full code Disposition Will discharge home today Follow up with your PCP on Tuesday Subjective Pt was seen and examined Lying in bed with no distress Pt said that she feels fine denies any chest pain, palpitation and SOB Physical Exam Physical Exam: General- No acute distress Head- atraumatic Eyes- PERRL, EOMI, ENT- oropharynx clear Neck- supple, no JVD Lungs- clear to auscultation Heart- regular rhythm; no murmur Abdomen- normal bowel sounds, soft, nontender Extremities- no calf tenderness Neuro- alert, oriented x 3; PERRL, EOMI; no facial palsy; no dysarthria Skin- warm & dry Results & Data Vital Signs (Past 12 Hours) Vital Signs Temp Pulse Resp BP Pulse Ox 06/23/19 11:00 36.5 C 83 16 117/85 100 06/23/19 07:00 36.9 C 78 16 99/53 L 99 06/23/19 04:00 36.9 C 88 20 110/75 99 (1) DKA (diabetic ketoacidoses) Diabetes mellitus complication detail: without coma Diabetes mellitus type: type 1 Qualified Code(s): E10.10 - Type 1 diabetes mellitus with ketoacidosis without coma
--- NOTE | 2019-06-23 19:16 | Communication Note ---
Date of Service: June 23, 2019 Pharmacy called because pt need prior auth for the Lantus. I called pt insurance, unfortunately they were closed. I left my info through the emergency line for the insurance to call me for the prior auth. In the meantime, I called the patient to inform her, but the was at the pharmacy to wait for the insulin. Since I could not get in touch with the insurance for the prior auth, I told to come to the hospital that we can give him the patient's remaining insulin that she was getting from the pen and I told the nurse to give the a few needles for the pen while we are waiting for the insurance company to work on the prior auth. I received a call from the pharmacy that they have levemir, tresiba and basaglar in the the formula coverage. I confirmed with our hospital pharmacist and the Basaglar insulin is a 1:1 ratio compare with Lantus. We will send script for Basaglar to the pharmacy. Pt was notified. Advised pt to use the Lantus pen for now until she picks her Basaglar. She has a follow appt with PCP on Tuesday and I told her to tell her PCP to give her a script for the Basaglar needles. (I ll try to call the pharmacy tomorrow to call for a script for the needles since the Pharmacy is closed now.
--- NOTE | 2019-06-24 08:57 | Discharge Summary ---
Date of Service June 23, 2019 Admission HPI Per Admitting Provider This is a 43 yr old F who has significant PMH of type 1.5DM, neuropathy, HLD, hx of gastric bypass who presents to [facility]/ to ill feeling and hyperglycemia. She complains of nausea, polydipsia, polyuria, weakness, arthralgias and myalgias that started Tuesday. Further developed SOB with exertion since last evening. Sx continued to worsen with profound hyperglycemia which prompted ED evaluation. She was dx at age 30 with diabetes initially treated with metformin and long acting insulin. Had gastric bypass in 2012 in hopes to cure diabetes. For past several months tried to tx diabetes with diet alone, specifically ketogenic diet. "I know its not working, I know I need insulin." She has been off insulin regimen for past several months. Denies any recent illness. Denies fever, sweats, URI sx, cough, hemopytsis, chest pain, sob at rest, palpitations, emesis, diarrhea, dysuria, hematuria, melena, hematochezia. Overall appetite has been normal. Previously has seen export administrator in [place], but most recently has been managed by PCP. In ED inital glucose was 326, tachycardic but otherwise hemodynamically stable. CBC relatively unremarkable, K 4.0, AG 17, CO2 11, Cr 0.87, phos 2.4, A1C 14.1, UA +4 ketones, +1 protein, Spec grav 1.038 CXR no acute abnormality. Received 1.5L of IVF upon my examination with improvement in glucose to 221. Admission Exam Per Admitting Provider CONSTITUTIONAL: WNWD, vitals as above, generally well-appearing EYES: EOMI bilaterally, PERRL, normal conjunctivae, no scleral icterus ENT: external ear and nose normal, oropharynx clear NECK: trachea midline RESPIRATORY: clear to auscultation bilaterally, no crackles, rales or wheezes, normal respiratory effort CARDIOVASCULAR: regular rate and rhythm, S1 and 2 heard without murmurs, gallops or rubs, no JVD, no peripheral edema GASTROINTESTINAL: normal bowel sounds, soft, nontender, nondistended MUSCULOSKELETAL: strength 5/5 throughout, head is normocephalic and atraumatic SKIN: warm and dry NEUROLOGIC: CN 2-12 grossly intact, no sensory deficit, normal cognition, normal speech PSYCHIATRIC: alert cooperative and oriented to person, place and time. 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) Electrolyte imbalance Discharge Exam General- No acute distress Head- atraumatic Eyes- PERRL, EOMI, ENT- oropharynx clear Neck- supple, no JVD Lungs- clear to auscultation Heart- regular rhythm; no murmur Abdomen- normal bowel sounds, soft, nontender Extremities- no calf tenderness Neuro- alert, oriented x 3; PERRL, EOMI; no facial palsy; no dysarthria Skin- warm & dry Discharge Data Allergies Allergy/AdvReac Type Severity Reaction Status Date / Time erythromycin base Allergy Unknown hives Verified 06/21/19 11:15 Consultations 06/21/19 12:40 ED Decision to Admit Stat 06/21/19 16:10 Consult Case Management - Discharge Planning Routine Ordered Studies XR chest 1V portable CLINICAL HISTORY: weakness dyspnea COMPARISON STUDY: No previous studies for comparison. FINDINGS: The bones soft tissues and hemidiaphragms are normal. The cardiomediastinal silhouette is normal. The lungs are clear. The pulmonary vasculature is normal. IMPRESSION: Negative chest. The above report was generated using voice recognition software. It may contain grammatical, syntax or spelling errors. Electronically signed by: Lamine Bennett M.D. 06/21/2019 10:47 AM Dictated: 06/21/19 1047 Transcribed: 06/21/19 1047 Hospital Course (1) DKA (diabetic ketoacidoses): (2) High anion gap metabolic acidosis: Diabetes Present to the ER with c/o nausea, polydipsia, polyuria, weakness, arthralgias and myalgias Glucose was 326 with elevated AG on admission Stopped her insulin few months ago and was managed her diabetes with ketogenic diet Received IVF and started on insulin drip AG closed and transition to subq insulin BS has been running good Pharmacy on board for glycemic management Agreed to take insulin on discharge Continue monitor BS closely (3) 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 Continue to titrate metformin dosing upwards as recommended. Basal insulin with Glargine 30 units SQ daily Consider for possible to add GPL1RA outpatient after titrating metformin and Glargine (based off of insurance coverage and patient preference of weekly vs daily injection) Continue monitor BS (4) Electrolyte imbalance: Mg 1.9 and Phos 2.9 K 3.2 Electrolytes replaced Continue monitor electrolytes (5) DVT prophylaxis: SCD/TEDS Ambulates Code Status Full code Disposition Will discharge home today Follow up with your PCP on Tuesday Addendum Date of Service: June 23, 2019 Pharmacy called because pt need prior auth for the Lantus. I called pt insurance, unfortunately they were closed. I left my info through the emergency line for the insurance to call me for the prior auth. In the meantime, I called the patient to inform her, but the was at the pharmacy to wait for the insulin. Since I could not get in touch with the insurance for the prior auth, I told to come to the hospital that we can give him the patient's remaining insulin that she was getting from the pen and I told the nurse to give the a few needles for the pen while we are waiting for the insurance company to work on the prior auth. I received a call from the pharmacy that they have levemir, tresiba and basaglar in the the formula coverage. I confirmed with our hospital pharmacist and the Basaglar insulin is a 1:1 ratio compare with Lantus. We will send script for Basaglar to the pharmacy. Pt was notified. Advised pt to use the Lantus pen for now until she picks her Basaglar. She has a follow appt with PCP on Tuesday and I told her to tell her PCP to give her a script for the Basaglar needles. (I ll try to call the pharmacy tomorrow to call for a script for the needles since the Pharmacy is closed now. 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) Electrolyte imbalance Activity: Resume your previous activity Activity Comment: as tolerated Non-emergency contact: Primary Care Provider Call non-emergency contact if: you have any medication questions Follow-up/Referrals: Bernadette Canales, [Primary Care Provider] - Diet: Carb Consistent or DM2 Addtl Attending Provider Instructions: Follow up with your primary care provider (already schedule for appointment on Tuesday) Continue monitor blood sugar closely and bring your blood sugar log at your next appointment with your physician Follow a healthy diabetes diet, limited concentrated sweet intake and follow a low carb diet Increase potassium supplement in your diet Your physician will check BMP to monitor your potassium Check HbA1c in 3 to 6 months Starting on Metformin XR 500mg PO daily with evening meal. Continue to titrate metformin dosing upwards as recommended. Basal insulin with Glargine 30 units SQ daily Notify your physician if your blood sugar running below 70 or too high to adjust your insulin Pending Studies at Discharge: No Stand-Alone Forms: My [facility] [employer], Smoking Cessation Medications and DC Order Prescriptions: New potassium chloride 10 mEq tablet extended release 10 meq PO DAILY Qty: 30 RF: 0 metformin 500 mg tablet 500 mg PO DAILY Qty: 30 RF: 0 Basaglar KwikPen U-100 Insulin 100 unit/mL (3 mL) insulin pen 30 units SQ DAILY 30 Days Qty: 9 RF: 0 Continued gabapentin 300 mg capsule 300 mg PO TID PRN (Reason: Back Pain) RF: 0 acetaminophen [Tylenol Extra Strength] 500 mg Tablet 500 mg PO Q6H PRN (Reason: Pain) RF: 0 cyanocobalamin (vitamin B-12) [Vitamin B-12] 500 mcg Lozenge 1,000 mcg PO DAILY RF: 0 cholecalciferol (vitamin D3) [Vitamin D3] 2,000 unit Tablet 2,000 unit PO DAILY RF: 0 Discharge Orders: Discharge Order (Routine); Ordered 06/23/19 Ordered By: Jesus Alberto Levy/Other Patient Handouts: Diabetes Manage A1C Test, Diabetic Ketoacidosis Admission Data Admit Date/Time: 06/21/19 14:57 Attending Provider: Jesus Alberto Live Admit Provider: Emperatriz Mike Primary Care Provider: Bernadette Canales Other Providers: Emperatriz Mike Other Interventions: Discharge Summary Assessment (RN) Last Done: 06/23/19 15:49 DC Date/Time DO NOT enter until pt leaves facility: 06/23/19 16:29
[2019-06-24] MEDS ORDERED: INSULIN GLARGINE SOLOSTAR 100 UNITS/ML 3 ML PEN SC SCH (09:00)
== END 2019-06-23 16:29 | disposition home or self-care (01) | DRG 639 ==
LOC: ED 09:46 → 2W 14:57 → SUATTDRO 14:57 → 2W 15:20

== ENCOUNTER 2024-11-22 07:02 | Inpatient (IN) ==
--- NOTE | 2024-11-22 07:06 | History & Physical Bridge Note ---
Date of Service November 22, 2024 History & Physical Bridge Note I have examined the patient, reviewed the History & Physical and in the interval since the performance of the History & Physical I have noted the following changes of clinical significance: no changes noted
--- NOTE | 2024-11-22 07:07 | Pre Anesthesia Assessment ---
Date of Service November 22, 2024 Pre Sedation Assessment Cardiovascular + regular rate Respiratory + respiratory effort normal Pre-Sedation Airway Assessment Smoking Status: Never smoker Hx Difficult Intubation: No Short, Thick Neck: No Thyromental Distance: > or= 3.5 Finger Breadths Oral Cavity: + Dental Abnormalities Mallampati Class: II ASA: ASA3 Procedure Planning Contraindications for Sedation: none Current Medications Reviewed: Yes Notes The planned sedation has been discussed with the patient. Informed Consent was obtained. I have identified the patient, determined the appropriateness of sedation and have assessed the patient immediately prior to the procedure. All medicine(s) and interventions are by my order.
--- OUTSIDE RECORDS SUMMARY | 2024-11-22 07:14 | External Medical Summary | Continuity of Care Document ---
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 Name Role Phone Sharri Howard Primary Care Physician [phone] [facility] [phone] Date(s): 11/12/24 - 11/12/24 [place] [address] [address], [address] [place] [address] [phone] Discharge Disposition: Home or Self Care Attending Physician: DO Villarreal Michelle L Referring Physician: DO Villarreal Michelle L Encounter Type: Clinic Allergies, Adverse Reactions, Alerts Substance Criticality Severity Reaction Reaction Severity Status erythromycin Unable to assess criticality Moderate Hives Active Immunizations Given and Recorded Vaccine Date Status Refusal Reason influenza virus vaccine, inactivated 04/22/20 Dionicio rded hepatitis B adult vaccine 1 08/23/14 Recorded hepatitis B adult vaccine 2 09/17/13 Recorded pneumococcal 23-valent vaccine 3 12/19/09 Recorded 1Result Comment: 2020-05-20: Historical information-source unspecified 2Result Comment: 2020-05-20: Historical information-source unspecified 3Result Comment: 2020-05-20: Historical information-source unspecified Medications aspirin 81 mg oral delayed release tablet Start: 11/12/24 1:14:00 PM EDT, 1 tab, PO, Daily, Disp# 100 tab, Patient to take with food, other Start Date: 11/12/24 Status: Ordered Quantity: 100.0 Unit: tab Repeat number: 1 Baqsimi Two Pack 3 mg nasal powder Start: 11/12/24 1:56:00 PM EDT, 3 mg =, intranasal, ONCE, Disp# 2 each, Refills: 3, PRN: hypoglycemia, Pharmacy: [id number] Start Date: 11/12/24 Status: Ordered Quantity: 2.0 Unit: each Repeat number: 4 Georgeagltawanda CulverikPen 100 units/mL subcutaneous solution Start: 03/27/24 9:36:00 AM EDT, 50 unit =, subQ, Daily, Disp# 50 mL, Refills: 3, Pharmacy: [facility] Start Date: 03/27/24 Stop Date: 03/22/25 Status: Ordered Quantity: 50.0 Unit: mL Repeat number: 4 BD MINI PEN NEEDLE [id number] Start: 04/26/23 5:44:00 PM EDT, BD MINI PEN NEEDLE [id number], See Instructions, Disp# 100 unknown unit, Refills: 2, USE 3 NEEDLES DAILY WITH INSULIN INJECTIONS, Pharmacy [facility] Start Date: 04/26/23 Status: Ordered Quantity: 100.0 Unit: unknown unit Repeat number: 1 BD needle Ultra-Fine III Mini Pen 31G x 5mm Start: 09/28/23 4:31:00 PM EDT, See Instructions, Disp# 100 lancet, Refills: 0, Use as directed withinlin. Max ____3/day. Use new pen needle with each injection., Pharmacy: [facility] Start Date: 09/28/23 Status: Ordered Quantity: 100.0 Unit: Repeat number: 1 celecoxib 200 mg oral capsule Start: 04/28/23 8:58:00 AM EDT, 1 cap, PO, ONCE, PRN: as needed for pain Start Date: 04/28/23 Status: Ordered Repeat number: 1 Crestor 5 mg oral tablet Start: 03/05/24 1:20:00 PM EDT, 1 tab, PO, Daily, Disp# 90 tab, Refills: 3, Pharmacy: [facility] Start Date: 03/05/24 Status: Ordered Quantity: 90.0 Unit: tab Repeat number: 4 Dexcom G7 Media Sales Consultant Start: 02/01/24 3:12:00 PM EDT, See Instructions, Disp# 1 kit, Refills: 0, use to control BS, Pharmacy: [facility] Start Date: 02/01/24 Status: Ordered Quantity: 1.0 Unit: kit Repeat number: 1 Dexcom G7 Sensor Start: 04/25/24 1:39:00 PM EDT, See Instructions, Disp# 9 kit, Refills: 3, change sensor q10 days tomonitor blood sugars, Pharmacy: [facility] Start Date: 04/25/24 Status: Ordered Quantity: 9.0 Unit: kit Repeat number: 4 Jardiance 10 mg oral tablet Start: 11/12/24 1:57:00 PM EDT, 1 tab, PO, Daily, Disp# 30 tab, Refills: 1, Pharmacy: [id number] Start Date: 11/12/24 Status: Ordered Quantity: 30.0 Unit: tab Repeat number: 2 Lexapro 5 mg oral tablet Start: 03/05/24 1:20:00 PM EDT, 1 tab, PO, Daily, Disp# 90 tab, Refills: 3, Pharmacy: [facility] Start Date: 03/05/24 Status: Ordered Quantity: 90.0 Unit: tab Repeat number: 4 NovoLOG 100 units/mL injectable solution Start: 03/28/24 3:57:00 PM EDT, See Instructions, Disp# 4 each, Refills: 3, use in omnipod with sliding scale insulin max 50 units daily, Pharmacy: [facility] Start Date: 03/28/24 Status: Ordered Quantity: 4.0 Unit: each Repeat number: 4 NovoLOG FlexPen 100 units/mL injectable solution Start: 05/30/23 4:05:00 PM EST, See Instructions, Disp# 15 mL, Refills: 3, TID based on 1 unit 10 carb average use up 30 units daily, Pharmacy: [facility] Start Date: 05/30/23 Status: Ordered Quantity: 15.0 Unit: mL Repeat number: 4 Omnipod 5 G6 Intro Kit Start: 03/05/24 1:09:00 PM EDT, See Instructions, Disp# 1 each, Refills: 0, Use as directed for subcutaneous insuin infusion, Note to Pharmacy: Omnipod 5 G6 intro kit (gen 5) [facility]# [id number], Pharmacy: [facility] Start Date: 03/05/24 Status: Ordered Quantity: 1.0 Unit: each Repeat number: 1 Omnipod 5 G6 Pods Start: 03/26/24 3:33:00 PM EDT, See Instructions, Disp# 45 each, Refills: 3, Use as directed for subcutaneous insulin infusion, change pod every 2 days; dispense 9 packs = 45 pods for 90 day supply, DX: E10.65, Note to Pharmacy: Omnipod 5 G6 pods (gen 5) [facility]# [id number], Pharmacy: [facility] Start Date: 03/26/24 Status: Ordered Quantity: 45.0 Unit: each Repeat number: 4 Ozempic (2 mg dose) 8 mg/3 mL subQ pen Start: 07/05/24 10:10:00 AM EST, 2 mg =, subQ, q7days, Disp# 9 mL, Refills: 2, Pharmacy: [facility] Start Date: 07/05/24 Status: Ordered Quantity: 9.0 Unit: mL Repeat number: 1 Vitamin B-12 1000 mcg/mL injectable solution Start: 11/12/24 8:57:00 AM EDT, See Instructions, 1,000 mcg IM ONCE every 3 months Start Date: 11/12/24 Status: Ordered Repeat number: 1 Problem List Condition Confirmation Course Effective Dates Status H ealth Status Informant Elevated alkaline phosphatase level Confirmed Active Anemia Confirmed Active Multiple nevi Confirmed Active Changing skin lesion Confirmed Active B12 deficiency Confirmed Active Dermatofibroma Confirmed Active Hx of gastric bypass Confirmed Active Iron deficiency Confirmed Active Type 1.5 diabetes, managed as type 1 Confirmed Active Polyarthralgia Confirmed Active Situational stress Confirmed Active Procedures Procedure Date Related Diagnosis Body Site Status Shave biopsy and cauterizati on of skin 1 04/20/21 Completed Procedure 2 Completed 1right forehead 2gastric bypass Results Radiology Reports * Exam Date Time Procedure Performing Provider Status 11/12/24 11:43 AM Echo TransTHORacic TTE Complete Final Notes: (Echo TransTHORacic TTE Complete) Reason For Exam: chest pain Echo TransTHORacic TTE Complete Report Signatures Finalized by Dr. Sharmin Villarreal DO on 11/13/2024 10:46 AM [place] Act 112: No-No further action needed Summary 1. Normal left ventricular size and systolic function with no regional wall motion abnormalities. 2. Ejection fraction as calculated by Biplane Simpsons method is 60%. 3. Mild left ventricular hypertrophy. 4. Normal LV diastolic function. 5. Normal right ventricular size and function. 6. Normal biatrial size. 7. The ascending aorta is dilated, measuring 3.6 cm with an index of 2.08 cm/m2. 8. Trace aortic insufficiency. 9. Mild mitral valve regurgitation. 10. Mild tricuspid valve regurgitation. 11. Normal estimated pulmonary artery pressures, estimated PASP is 25 mmHg. 12. No prior studies for comparison. Patient Info Name: JOSE YANES Age: 49 years : 1975 Gender: Female Ht: 165 cm Wt: 65 kg BSA: 1.74 m2 HR: 62 bpm BP: 150 / 82 mmHg Heart Rhythm: Sinus Rhythm Technical Quality: Good Exam Date: 11/12/2024 10:52 AM Exam Location: [facility] Patient Status: Outpatient Staff Ordering Physician: Sharmin Villarreal Scoop Machine Operator: Marci Fontanez RDCS, T Attending Physician: Sharmin Villarreal ([email or web address]) Study Info CPT 01735 - Indications R079 - Chest pain, unspecified Procedure(s) * A complete two-dimensional, color flow and Doppler transthoracic echocardiogram was performed. Exam Type: Cardiac Basic Left Ventricle Normal left ventricular size and systolic function with no regional wall motion abnormalities. Ejection fraction as calculated by Biplane Simpsons method is 60%. Mild left ventricular hypertrophy. Normal LV diastolic function. Right Ventricle Normal right ventricular size and function. TAPSE is normal, 2.9 cm. Left Atrium Normal left atrial size. Right Atrium Normal right atrial size. Atrial Septum Appears intact. Aortic Valve Sclerotic, trileaflet aortic valve without stenosis. Trace aortic insufficiency. Pulmonic Valve Unremarkable pulmonic valve. Trace pulmonary regurgitation. Mitral Valve Unremarkable mitral valve. Mild mitral valve regurgitation. Tricuspid Valve Unremarkable tricuspid valve. Mild tricuspid valve regurgitation. Normal estimated pulmonary artery pressures, estimated PASP is 25 mmHg. Pericardium/Pleural No pericardial effusion. Inferior Vena Cava Normal IVC size and inspiratory collapse. Estimated right atrial pressure is 3 mmHg. Aorta The ascending aorta is dilated, measuring 3.6 cm with an index of 2.08 cm/m2. Normal aortic root and arch. Left Ventricular Outflow Tract Name Value Normal LVOT 2D LVOT Diameter 1.8 cm LVOT Doppler LVOT Peak Velocity 0.97 m/s LVOT Peak Gradient 4 mmHg LVOT Mean Gradient 2 mmHg LVOT VTI 21.12 cm LVOT Stroke Volume 53.11 ml LVOT Stroke Volume Index 0.03 l/m2 LVOT Cardiac Output 3.29 l/min LVOT Cardiac Index 1.89 L/min/m2 Pulmonic Valve Name Value Normal PV 2D RVOT Diameter (2D) 2.2 cm 1.7-2.7 RVOT Doppler RVOT Peak Velocity 0.75 m/s RVOT Peak Gradient 2 mmHg PV Doppler PV Peak Velocity 0.78 m/s PV Regurgitation Doppler WV Peak Velocity 1.17 m/s Mitral Valve Name Value Normal MV Doppler MV PHT 50 ms MV Diastolic Function MV E Peak Velocity 0.91 m/s <=0.50 MV A Peak Velocity 0.75 m/s MV E/A 1.20 <=0.80 MV Decel Time 173 ms MV Annular TDI MV Septal s' Velocity 7.51 cm/s MV Septal e' Velocity 7.07 cm/s >=7.00 MV E/e' (Septal) 12.8 <=8.0 MV Lateral s' Velocity 9.90 cm/s MV Lateral e' Velocity 10.66 cm/s >=10.00 MV E/e' (Lateral) 8.52 <=8.00 MV e' Average 8.87 MV E/e' (Average) 10.68 <=14.00 Tricuspid Valve Name Value Normal TV Regurgitation Doppler TR Peak Velocity 2.32 m/s <=2.80 TR Peak Gradient 22 mmHg Estimated PAP/RSVP RA Pressure 3 mmHg <=5 PA Systolic Pressure 25 mmHg <40 PA Mean Pressure (WV Velocity) 8 mmHg TV Diastolic Function TV E Peak Velocity 0.56 m/s TV A Peak Velocity 0.25 m/s TV E/A 2.25 0.80-2.00 TV Decel Time 250 ms >=120 TV Annular TDI TV Lateral Fawn s' Velocity 13.5 cm/s 9.5-18.7 TV Lateral Fawn e' Velocity 12.4 cm/s <7.8 TV E/e' 4.53 2.00-6.00 Aorta Name Value Normal Ascending Aorta Sinus of Valsalva Diameter 2.9 cm 2.7-3.3 Sinus of Valsalva Index 1.69 cm/m2 1.60-2.00 Prox Asc Ao Diameter 3.6 cm 2.3-3.1 Prox Asc Ao Diameter Index 2.08 cm/m2 1.30-1.90 Thoracic Aorta Ao Arch Diameter 2.7 cm Desc Ao Peak Velocity 1.03 m/s Desc Ao Peak Gradient 4 mmHg Venous Name Value Normal IVC/SVC IVC Diameter (Insp 2D) 0.6 cm IVC Diameter (Exp 2D) 1.7 cm <=2.1 IVC Diameter Percent Change (2D) 63 % >=50 Aortic Valve Name Value Normal AV Doppler AV Peak Velocity 1.42 m/s <2.00 AV Peak Gradient 8 mmHg AV Area (Cont Eq Hood) 1.7 cm2 AV Area Index (Cont Eq Hood) 0.99 cm2/m2 AV V1/V2 Ratio 0.69 AV Regurgitation 2D LVOT Area 2.5 cm2 Ventricles Name Value Normal LV Dimensions 2D/MM IVS Diastolic Thickness (2D) 1.1 cm 0.6-0.9 LVID Diastole (2D) 3.9 cm 3.3-5.1 LVIW Diastolic Thickness (2D) 1.0 cm 0.6-0.9 LVID Systole (2D) 2.7 cm 2.2-3.5 LVOT Diameter 1.8 cm LV Fractional Shortening/Ejection Fraction 2D/MM LV Fractional Shortening (2D) 31 % 27-45 LV Diastolic Volume (4C MOD) 70 ml LV Diastolic Volume (2C MOD) 81 ml LV Diastolic Volume (BP MOD) 75 ml 46-106 LV Diastolic Volume Index (BP MOD) 43.33 ml/m2 29.00-61.00 LV Systolic Volume (BP MOD) 31 ml 14-42 LV Systolic Volume Index (BP MOD) 17.95 ml/m2 8.00-24.00 LV EF (BP MOD) 60 % 58-69 LV SV (BP MOD) 44.14 ml RV Dimensions 2D/MM RV Basal Diastolic Dimension 2.9 cm 2.5-4.1 TAPSE 2.9 cm >=1.7 Atria Name Value Normal LA Dimensions LA Area (4C) 15.2 cm2 LA Length (4C) 4.8 cm LA Area (2C) 17.6 cm2 LA Length (2C) 4.9 cm LA Volume (4C A-L) 40.99 ml LA Volume (2C A-L) 53.30 ml LA Volume (BP A-L) 47 ml 22-52 LA Volume Index (BP A-L) 27.22 ml/m2 <=34.00 RA Dimensions RA Area (4C) 12.5 cm2 <=18.0 Final Signed by:DO Villarreal Michelle L Signed (Electronic Signature):11/12/2024 10:52 Social History Social History Type Response Smoking Status Never smoked cigaret eren Sex Female Sex Representation Female (finding) Patient Care team information Care Team Personnel Name: DO Howard Kristen M Position: Physician - Family Med Member Role: Primary Care Provider Address: [address] [place] [address] Telecom: [phone] Care Team Related Persons Name: CHRIS YANES Insurance Providers Guarantor name: JOSE YANES Health Plan Information #: 1 Payer: [employer] Member Number: [id number] Policy Number: NA Group Number: [id number] Payer Identifier: [id number] Health Plan Information #: 2 Payer: SELF PAY Member Number: NA Policy Number: NA Group Number: NA Payer Identifier: [id number] Health Plan Information #: 3 Payer: [employer] Member Number: NA Policy Number: NA Group Number: NA Payer Identifier: [id number] Health Plan Information #: 4 Payer: [employer] PCP ONLY Member Number: NA Policy Number: NA Group Number: NA Payer Identifier: NA Health Plan Information #: 5 Payer: [employer] Member Number: [id number] Policy Number: NA Group Number: NA Payer Identifier: [id number]
--- OUTSIDE RECORDS SUMMARY | 2024-11-22 07:14 | External Medical Summary | Continuity of Care Document ---
Author Name Unknown Organization [facility] [address] Address [address] [place], [place] [id number] Care Team Providers Care Head Cashier Name Role Phone Sharri Howard Primary Care Physician [phone] Encounter [facility] [id number] Date(s): 11/12/24 - 11/12/24 [place] [address], [address] [place] [address] [phone] Encounter Diagnosis Body mass index [BMI] 24.0-24.9, adult(Discharge Diagnosis) - 11/12/24 Exertional angina(Discharge Diagnosis) - 11/12/24 Diabetes type 1(Discharge Diagnosis) - 11/12/24 Hypercholesterolemia(Discharge Diagnosis) - 11/12/24 Previous with HELLP syndrome, antepartum(Discharge Diagnosis) - 11/12/24 History of Jalyn-en-Y gastric bypass(Discharge Diagnosis) - 11/12/24 Discharge Disposition: Home or Self Care Attending Physician: DO Villarreal Michelle L Referring Physician: DO Howard Kristen M Encounter Type: Clinic Allergies, Adverse Reactions, Alerts Substance Criticality Severity Reaction Reaction Severity Status erythromycin Unable to assess criticality Moderate Hives Active Assessment and Plan Extracted from: Title:Cardiology Office Visit Note Author:DO Villarreal Michelle L Date:11/12/24 1. Exertional angina 2. Diabetes type 1 X 20+ years 3. Hypercholesterolemia 4. Previous with HELLP syndrome, antepartum Her first 5. History of Jalyn-en-Y gastric bypass I am concerned about the exertional nature of her symptoms that she does have coronary artery disease. I have discussed several evaluation options with her including proceeding directly to left heart catheterization to define her coronary anatomy versus CTA. I am concerned that to do CTA we may under diagnose in the event that she has soft plaque and not calcified plaque. Given her longstanding diabetes this is obviously her most important risk leading to further coronary disease along with her family history. I have asked that she start taking aspirin 81 mg daily at this time with food. In the event that her stomach bothers her I have asked her to hold her Celebrex. She has hip problems which is why she is taking the Celebrex but I have notified her that we may need to hold this. In addition her lipids are not at goal and a LDL of less than 50-60 given her diabetes is recommended. Will have her increase her statin dose and recheck lipids in approximately 3 months. In the event that her symptoms worsen prior to the catheterization I have advised her to come to the emergency room. I am awaiting the results of her urine to decide whether to put her on an ARB versus a beta- janay since I do not think her blood pressure is going to tolerate addition of both medications. Thank you for allowing me to participate in the care of this very nice patient. I look forward to participating in their care with you. I will follow up after remaining tests are complete. Sharmin Villarreal DO [facility] [employer]ridge F[employer] layer [facility] [place] [facility] [place], [place] Immunizations Given and Recorded Vaccine Date Status [...] 2 each, Refills: 3, PRN: hypoglycemia, Pharmacy: [id number] Start Date: 11/12/24 Status: Ordered Quantity: 2.0 Unit: each Repeat number: 4 Georgeagltawanda KwikPen 100 units/mL subcutaneous solution Start: 03/27/24 9:36:00 AM EDT, 50 unit =, subQ, Daily, Disp# 50 mL, Refills: 3, Pharmacy: [facility] Start Date: 03/27/24 Stop Date: 03/22/25 Status: Ordered Quantity: 50.0 Unit: mL Repeat number: 4 BD MINI PEN NEEDLE [id number] Start: 04/26/23 5:44:00 PM EDT, BD MINI PEN NEEDLE [id number], See Instructions, Disp# 100 unknown unit, Refills: 2, USE 3 NEEDLES DAILY WITH INSULIN INJECTIONS, Pharmacy [facility] Start Date: 04/26/23 Status: Ordered Quantity: 100.0 Unit: unknown unit Repeat number: 1 BD needle Ultra-Fine III Mini Pen 31G x 5mm Start: 09/28/23 4:31:00 PM EDT, See Instructions, Disp# 100 lancet, Refills: 0, Use as directed withinlin. Max ____3/day. Use new pen needle with each injection., Pharmacy: [facility] Start Date: 09/28/23 Status: Ordered Quantity: 100.0 Unit: Repeat number: 1 celecoxib 200 mg oral capsule Start: 04/28/23 8:58:00 AM EDT, 1 cap, PO, ONCE, PRN: as needed for pain Start Date: 04/28/23 Status: Ordered Repeat number: 1 Crestor 5 mg oral tablet Start: 03/05/24 1:20:00 PM EDT, 1 tab, PO, Daily, Disp# 90 tab, Refills: 3, Pharmacy: [facility] Start Date: 03/05/24 Status: Ordered Quantity: 90.0 Unit: tab Repeat number: 4 Dexcom G7 Senior Science Consultant Start: 02/01/24 3:12:00 PM EDT, See Instructions, Disp# 1 kit, Refills: 0, use to control BS, Pharmacy: [facility] Start Date: 02/01/24 Status: Ordered Quantity: 1.0 Unit: kit Repeat number: 1 Dexcom G7 Sensor Start: 04/25/24 1:39:00 PM EDT, See Instructions, Disp# 9 kit, Refills: 3, change sensor q10 days tomonitor blood sugars, Pharmacy: [facility] Start Date: 04/25/24 Status: Ordered Quantity: 9.0 Unit: kit Repeat number: 4 Jardiance 10 mg oral tablet Start: 11/12/24 1:57:00 PM EDT, 1 tab, PO, Daily, Disp# 30 tab, Refills: 1, Pharmacy: [id number] Start Date: 11/12/24 Status: Ordered Quantity: 30.0 Unit: tab Repeat number: 2 Lexapro 5 mg oral tablet Start: 03/05/24 1:20:00 PM EDT, 1 tab, PO, Daily, Disp# 90 tab, Refills: 3, Pharmacy: [facility] Start Date: 03/05/24 Status: Ordered Quantity: 90.0 Unit: tab Repeat number: 4 NovoLOG 100 units/mL injectable solution Start: 03/28/24 3:57:00 PM EDT, See Instructions, Disp# 4 each, Refills: 3, use in omnipod with sliding scale insulin max 50 units daily, Pharmacy: [facility] Start Date: 03/28/24 Status: Ordered Quantity: 4.0 Unit: each Repeat number: 4 NovoLOG FlexPen 100 units/mL injectable solution Start: 05/30/23 4:05:00 PM EST, See Instructions, Disp# 15 mL, Refills: 3, TID based on 1 unit 10 carb average use up 30 units daily, Pharmacy: [facility] Start Date: 05/30/23 Status: Ordered Quantity: 15.0 Unit: mL Repeat number: 4 Omnipod 5 G6 Intro Kit Start: 03/05/24 1:09:00 PM EDT, See Instructions, Disp# 1 each, Refills: 0, Use as directed for subcutaneous insuin infusion, Note to Pharmacy: Omnipod 5 G6 intro kit (gen 5) [facility]# [id number], Pharmacy: [facility] Start Date: 03/05/24 Status: Ordered Quantity: 1.0 Unit: each Repeat number: 1 Omnipod 5 G6 Pods Start: 03/26/24 3:33:00 PM EDT, See Instructions, Disp# 45 each, Refills: 3, Use as directed for subcutaneous insulin infusion, change pod every 2 days; dispense 9 packs = 45 pods for 90 day supply, DX: E10.65, Note to Pharmacy: Omnipod 5 G6 pods (gen 5) [facility]# [id number], Pharmacy: [facility] Start Date: 03/26/24 Status: Ordered Quantity: 45.0 Unit: each Repeat number: 4 Ozempic (2 mg dose) 8 mg/3 mL subQ pen Start: 07/05/24 10:10:00 AM EST, 2 mg =, subQ, q7days, Disp# 9 mL, Refills: 2, Pharmacy: [facility] Start Date: 07/05/24 Status: Ordered Quantity: 9.0 Unit: mL Repeat number: 1 Vitamin B-12 1000 mcg/mL injectable solution Start: 11/12/24 8:57:00 AM EDT, See Instructions, 1,000 mcg IM ONCE every 3 months Start Date: 11/12/24 Status: Ordered Repeat number: 1 Mental Status 11/12/24 Barriers to Learning one year None evide nt Mandatory Health Literacy Documentation Yes Health Literacy Communication Barriers N ever Primary Language Arabic Problem List Condition Confirmation Course Effective Dates Status H ealth Status Informant Elevated alkaline phosphatase level Confirmed Active Anemia Confirmed Active Multiple nevi Confirmed Active Changing skin lesion Confirmed Active B12 deficiency Confirmed Active Dermatofibroma Confirmed Active Hx of gastric bypass Confirmed Active Iron deficiency Confirmed Active Type 1.5 diabetes, managed as type 1 Confirmed Active Polyarthralgia Confirmed Active Situational stress Confirmed Active Diagnosis Diagnosis Type Effective Dates Health Status Clinical Service Informant Diabetes type 1 Discharge Diagnosis 11/12/24 Non-Specifie d Body mass index [BMI] 24.0-24.9, adult Discharge Diagnosis 11/12/24 Non-Specifie d Exertional angina Discharge Diagnosis 11/12/24 Non-Specifie d Hypercholesterolemia Discharge Diagnosis 11/12/24 Non-Specifie d History of Jalyn-en-Y gastric bypass Discharge Diagnosis 11/12/24 Non-Specifie d Previous with HELLP syndrome, antepartum Discharge Diagnosis 11/12/24 Non-Specifie d Procedures Procedure Date Related Diagnosis Body Site Status Shave biopsy and cauterizati on of skin 1 04/20/21 Completed Procedure 2 Completed 1right forehead 2gastric bypass Results Most recent to oldest [Reference Range]: 1 Partial Thromboplastin Time, Activated [ 23-32 sec] 27 sec 1 (11/12/24 11:55 AM) INR-QST 1.0 2 (11/12/24 11:55 AM) PT-QST [9.0-11.5 sec] 10.7 sec 3 (11/12/24 11:55 AM) HS CRP-QST 0.4 mg/L 4 (11/12/24 11:55 AM) 1Result Comment: This test has not been validated for monitoring unfractionated heparin therapy. For testing that is validated for this type of therapy, please refer to the Heparin Anti-Xa assay (test code 69675). For additional information, please refer to http://Sumavision.Hometapper/faq/BTU751 (This link is being provided for informational/educational purposes only.) Specimen Received d/t: 11/13/2024 01:11:00 Lab test performed by: [facility] [employer] [address] [place] [address] Andrea Lackey MD 2Result Comment: Reference Range 0.9-1.1 Moderate-intensity Warfarin Therapy 2.0-3.0 Higher-intensity Warfarin Therapy 3.0-4.0 Specimen Received d/t: 11/13/2024 01:11:00 Lab test performed by: [facility] [employer] [employer] [address] [place] [address] Andrea Lackey MD 3Result Comment: Specimen Received d/t: 11/13/2024 01:11:00 Lab test performed by: [facility] [employer] [address] [place] [address] Andrea Lackey MD 4Result Comment: Reference Range Optimal <1.0 Shira DAVENPORT et al. Endocr Pract.2017;23(Suppl 2):1-87. For ages >17 Years: hs-CRP mg/L Risk According to AHA/CDC Guidelines <1.0 Lower relative cardiovascular risk. 1.0-3.0 Average relative cardiovascular risk. 3.1-10.0 Higher relative cardiovascular risk. Consider retesting in 1 to 2 weeks to exclude a benign transient elevation in the baseline CRP value secondary to infection or inflammation. >10.0 Persistent elevation, upon retesting, may be associated with infection and inflammation. Stacey TA, Jocelin GA, Ru RW, et al. Markers of inflammation and cardiovascular disease: application to clinical and public health practice: A statement for healthcare professionals from the Centers for Disease Control and Prevention and the [place] Heart Association. Circulation 2003; 107(3): 499-511. FASTING:UNKNOWN FASTING: UNKNOWN Specimen Received d/t: 11/13/2024 01:11:00 Lab test performed by: [facility] [address] [place] [address] Andrea Lackey MD Vital Signs Most recent to oldest [Reference Range]: 1 Height 165.2 cm (11/12/24 9:04 AM) Patient Weight 66.5 kg (11/12/24 9:04 AM) Body Mass Index 24.37 kg/m2 (11/12/24 9:04 AM) Heart Rate 77 bpm (11/12/24 9:04 AM) Blood Pressure 122/78mmHg (11/12/24 9:04 AM) Cuff Pulse Pressure 44 mmHg (11/12/24 9:04 AM) Social History Social History Type Response Smoking Status Never smoked cigaret eren Sex Female Sex Representation Female (finding) Cardiology Outpatient Note * DO Villarreal Michelle L: PERFORM Event Display: Cardiology Outpt Note Authored Date: [id number] Primary Care Provider DO Howard Kristen M Referring Provider DO Howard Kristen M Reason for Consultation Eval cardiac symptoms Chief Complaint chest pain woke pt up in middle of night, neck and jaw pain. treid otc prilosec with out relief. History of Present Illness Melva Dia is a very nice 49-year-old woman who is here with her and she is being seen for recent significant chest discomfort. Several months ago she had an episode of severe chest discomfort which woke her up in the middle of the night. This was the worst episode she has ever had and this resolved after several minutes. She discussed described this discomfort as a pressure heavy tight sensation. It very much worried her. Since then she has had several episodes of exertional but not quite as severe chest discomfort. Review of Systems General: no fevers, chills, weight loss of gain HEENT: no changes in vision or hearing; no recent falls or head trauma Cardiac: No other symptoms other than reported in HPI Pulmonary: No symptoms other than reported in HPI Abdomen: No changes in bowel habits, nausea, vomiting, no BRBPR : no changes in urine frequency Extremities: no edema or claudication Physical Exam Vitals & Measurements HR: 77 (Monitored) BP: 122/78 SpO2: 99% HT: 165.2 cm WT: 66.5 kg WT: 66.500 kg (Dosing) BMI: 24.37 Patient is awake alert and oriented x3 and in no acute distress HEENT: 2+ carotid upstrokes, no evidence of carotid bruits LUNGS: Clear to auscultation bilaterally no rales rhonchi or wheezing HEART: Regular rate and rhythm no appreciable murmurs rubs or gallops ABDOMEN: Soft nontender nondistended positive bowel sounds EXTREMITIES: No evidence of clubbing cyanosis or edema PSYCHIATRIC: Patient’s affect appeared appropriate Diagnostic Results Her echo was done today and the preliminary report shows borderline LVH with normal LV systolic function there were no gross valve abnormalities the complete report is pending and will follow shortly EKG Normal sinus rhythm inferior ST-T wave abnormalities Assessment/Plan 1. Exertional angina 2. Diabetes type 1 X 20+ years 3. Hypercholesterolemia 4. Previous with HELLP syndrome, antepartum Her first 5. History of Jalyn-en-Y gastric bypass I am concerned about the exertional nature of her symptoms that she does have coronary artery disease. I have discussed several evaluation options with her including proceeding directly to left heart catheterization to define her coronary anatomy versus CTA. I am concerned that to do CTA we may under diagnose in the event that she has soft plaque and not calcified plaque. Given her longstanding diabetes this is obviously her most important risk leading to further coronary diseasealong with her family history. I have asked that she start taking aspirin 81 mg daily at this time with food. In the event that her stomach bothers her I have asked her to hold her Celebrex. She has hip problems which is why she is taking the Celebrex but I have notified her that we may need to hold this. In addition her lipids are not at goal and a LDL of less than 50-60 given her diabetes is recommended. Will have her increase her statin dose and recheck lipids in approximately 3 months. In the event that her symptoms worsen prior to the catheterization I have advised herto come to the emergency room. I am awaiting the results of her urine to decide whether to put her on an ARB versus a beta-janay since I do not think her blood pressure is going to tolerate addition of both medications. Thank you for allowing me to participate in the care of this very nice patient. I look forward toparticipating in their care with you. I will follow up after remaining tests are complete. Sharmin Villarreal DO [facility] [employer] [facility] [place] [facility] , [place] Attestation I, Sharmin Villarreal DO [facility] have spent 65 minutes performing the activities necessary in the patients visit. This time does not include separately reported service. Activities include the following: _x_ review of the medical record _x_ obtaining a history _x_ physical exam/evaluation _x_counseling/educating patient/family/caregiver _x_ discussion/referral to other healthcare professionals _x_ documenting care in the medical record _x_ independent interpretation of results _x_ communication of results to patient/family/caregiver _x_ coordination of care Problem List/Past Medical History Ongoing Anemia B12 deficiency Changing skin lesion Dermatofibroma Elevated alkaline phosphatase level Hx of gastric bypass Iron deficiency Multiple nevi Polyarthralgia Situational stress Type 1.5 diabetes, managed as type 1 Procedure/Surgical History •Shave biopsy and cauterization of skin| Service Date: 04/20/2021•Procedure Cardiac History Longstanding diabetes x 20+ years on insulin pump with glucometer History of Jalyn-en-Y 20 years ago for treatment of diabetes Hypercholesterolemia History of HELPP syndrome with her first into emergency at 34 weeks Family history of CAD Medications aspirin(aspirin 81 mg oral delayed release tablet), 81 mg= 1 tab, PO, Daily celecoxib(celecoxib 200 mg oral capsule), 200 mg= 1 cap, PO, ONCE, PRN cyanocobalamin(Vitamin B-12 1000 mcg/mL injectable solution), See Instructions diabetes supplies(Dexcom G7 Sensor), See Instructions, 3 refills diabetes supplies(Dexcom G7 Senior Science Consultant), See Instructions escitalopram(Lexapro 5 mg oral tablet), 5 mg= 1 tab, PO, Daily, 3 refills insulin aspart(NovoLOG 100 units/mL injectable solution), See Instructions, 3 refills insulin aspart(NovoLOG FlexPen 100 units/mL injectable solution), See Instructions, 3 refills insulin glargine(Basaglar KwikPen 100 units/mL subcutaneous solution), 50 unit, subQ, Daily, 3 refills insulin pump(Omnipod 5 G6 Pods), See Instructions, 3 refills insulin pump(Omnipod 5 G6 Intro Kit), See Instructions rosuvastatin(Crestor 5 mg oral tablet), 5 mg= 1 tab, PO, Daily, 3 refills semaglutide(Ozempic (2 mg dose) 8 mg/3 mL subQ pen), 2 mg, subQ, q7days syringe needles(BD needle Ultra-Fine III Mini Pen 31G x 5mm), See Instructions unlisted medication(BD MINI PEN NEEDLE [id number]), See Instructions Allergies erythromycin (Moderate) Hives Social History Smoking Status Never smoked cigarettes Family History Heart attack: Father and PGF. Heart disease: Father. Heart failure: Mother. Hypertension: Father. Stroke: Father. Health Status Family Member(s) Family Member(s) Relationship: PGF, Age: Unknown Lab Results Test Name Test Result Date/Time Na-Quest 135 mmol/L 10/22/2024 11:46 EDT K-Quest 4.5 mmol/L 10/22/2024 11:46 EDT Cl-Quest 100 mmol/L 10/22/2024 11:46 EDT CO2-Quest 26 mmol/L 10/22/2024 11:46 EDT BUN-Quest 10 mg/dL 10/22/2024 11:46 EDT Creatinine-Quest 0.55 mg/dL 10/22/2024 11:46 EDT BUN/Creat Ratio-Quest SEE NOTE: 10/22/2024 11:46 EDT Ca-Quest 9.1 mg/dL 10/22/2024 11:46 EDT eGFR-QST 114 mL/min/1.73m2 10/22/2024 11:46 EDT Glucose-Qst 259 mg/dL 10/22/2024 11:46 EDT WBC Count-Quest 8.3 Thousand/uL 10/22/2024 11:46 EDT Hemoglobin Refl 13.0 g/dL 10/22/2024 11:46 EDT Hematocrit Refl 41.1 % 10/22/2024 11:46 EDT RBC Refl 4.63 Million/uL 10/22/2024 11:46 EDT MCV Refl 88.8 fL 10/22/2024 11:46 EDT MCHC (QST) 31.6 g/dL 10/22/2024 11:46 EDT MCH Refl 28.1 pg 10/22/2024 11:46 EDT RDW Refl 12.5 % 10/22/2024 11:46 EDT Platelet Count 297 Thousand/uL 10/22/2024 11:46 EDT MPV-Quest 12.4 fL 10/22/2024 11:46 EDT Neutrophils-Quest 67.4 % 10/22/2024 11:46 EDT Lymphocytes-Quest 25.4 % 10/22/2024 11:46 EDT Monocytes-Quest 6.0 % 10/22/2024 11:46 EDT Basophils-Quest 0.5 % 10/22/2024 11:46 EDT Eosinophils-Quest 0.7 % 10/22/2024 11:46 EDT Absolute Neutrophils-Quest 5594 cells/uL 10/22/2024 11:46 EDT Absolute Lymphocytes-Quest 2108 cells/uL 10/22/2024 11:46 EDT Absolute Monocytes-Quest 498 cells/uL 10/22/2024 11:46 EDT Absolute Basophils-Quest 42 cells/uL 10/22/2024 11:46 EDT Absolute Eosinophils-Quest 58 cells/uL 10/22/2024 11:46 EDT ALT 28 U/L 10/22/2024 11:46 EDT Bilirubin, Total (QST) 0.8 mg/dL 10/22/2024 11:46 EDT Alkaline Phosphatase (ALP) 121 U/L 10/22/2024 11:46 EDT AST 21 U/L 10/22/2024 11:46 EDT ..Apolipoprotein A1 140 mg/dL 10/22/2024 11:46 EDT Apolipoprotein B 136 mg/dL 10/22/2024 11:46 EDT Albumin, Serum 4.0 g/dL 10/22/2024 11:46 EDT A/G Ratio-Quest 1.7 (calc) 10/22/2024 11:46 EDT Globulin-Quest 2.4 g/dL (calc) 10/22/2024 11:46 EDT CRP-Quest <3.0 mg/L 10/22/2024 11:46 EDT Cholesterol-QST 252 mg/dL 10/22/2024 11:46 EDT HDL Chol-QST 49 mg/dL 10/22/2024 11:46 EDT Non HDL Chol-QST 203 mg/dL (calc) 10/22/2024 11:46 EDT Chol/HDLC Ratio-QST 5.1 (calc) 10/22/2024 11:46 EDT Triglycerides-QST 174 mg/dL 10/22/2024 11:46 EDT LDL Chol-QST 171 mg/dL (calc) 10/22/2024 11:46 EDT HbA1c 9.9 % of total Hgb 10/22/2024 11:46 EDT eAG (mg/dL) 237 mg/dL 10/22/2024 11:46 EDT eAG (mmol/L) 13.2 mmol/L 10/22/2024 11:46 EDT Repeat labs and UA still pending Electronic Signature on File Electronically Reviewed/Signed by: Sharmin Villarreal DO Author Signature Dt/Tm:11/12/2024 01:23 PM Division of General Cardiology [facility] Patient Care team information Care Team Personnel Name: DO Howard Kristen M Position: Physician - Family Med Member Role: Primary Care Provider Address: [address] [place] [address] Telecom: [phone] Care Team Related Persons Name: CHRIS YANES Insurance Providers Guarantor name: MELVA YANES Health Plan Information #: 1 Payer: [employer] Member Number: [id number] Policy Number: NA Group Number: [id number] Payer Identifier: [id number] Health Plan Information #: 2 Payer: SELF PAY Member Number: NA Policy Number: NA Group Number: NA Payer Identifier: [id number] Health Plan Information #: 3 Payer: [employer] Member Number: NA Policy Number: NA Group Number: NA Payer Identifier: [id number] Health Plan Information #: 4 Payer: [employer] PCP ONLY Member Number: NA Policy Number: NA Group Number: NA Payer Identifier: BERK[place] Health Plan Information #: 5 Payer: [facility] Member Number: [id number] Policy Number: [place] Group Number: [id number] Payer Identifier: [id number]"
--- OUTSIDE RECORDS SUMMARY | 2024-11-22 07:15 | External Medical Summary | Continuity of Care Document ---
Author Name Unknown Organization [address] Address [address] [place] [address] [place] [id number] Care Team Providers Care Engravings Polisher Name Role Phone Sharri Howard Primary Care Physician [phone] [id number] Date(s): 11/12/24 - 11/12/[address] [place] [address], [address] [place] [address] [place] [phone] Encounter Diagnosis Type 1.5 diabetes, managed as type 1(Discharge Diagnosis) - 11/12/24 HLD (hyperlipidemia)(Discharge Diagnosis) - 11/12/24 Body mass index [BMI] 24.0-24.9, adult(Discharge Diagnosis) - 11/12/24 Discharge Disposition: Home or Self Care Attending Physician: Enid Connors DO, Mariana Annette Referring Physician: Enid Connors DO, Mariana Annette Encounter Type: Clinic Allergies, Adverse Reactions, Alerts Substance Criticality Severity Reaction Reaction Severity Status erythromycin Unable to assess criticality Moderate Hives Active Assessment and Plan Extracted from: Title:Office Visit Note Author:DO Mac Clair e S Date:11/12/24 1. Type 1.5 diabetes, manag ed as type 1 Chronic condition not at goal/exacerbated/progressive/side effects of treatment Goal: Hemoglobin a1c less than 7 Data: _ Plan: Room for improvement per pt with pump bolus. Hold on adjusting basal with concern for lows. ?increase pump rate hourly, consider if consistently elevated, but again concern with hypoglycemia. Add Jardiance, more for cardioprotective effect, if type 1 physiology probably wouldn't effect blood sugar a ton. Refer back to endocrinology. 2. HLD (hyperlipidemia) Chronic condition not at goal/exacerbated/progressive/side effects of treatment Goal: LDL less than 70 Data: _ Plan: Discussed increase statin vs other medications. Per pt cardiology considering based on labs/cath-> hold on adjusting until then. F/u 6 weeks. Immunizations Given and Recorded Vaccine Date Status [...] 2 each, Refills: 3, PRN: hypoglycemia, Pharmacy: [id number] Start Date: 11/12/24 Status: Ordered Quantity: 2.0 Unit: each Repeat number: 4 Basaglar KwikPen 100 units/mL subcutaneous solution Start: 03/27/24 9:36:00 AM EDT, 50 unit =, subQ, Daily, Disp# 50 mL, Refills: 3, Pharmacy: [facility] Start Date: 03/27/24 Stop Date: 03/22/25 Status: Ordered Quantity: 50.0 Unit: mL Repeat number: 4 BD MINI PEN NEEDLE [id number] Start: 04/26/23 5:44:00 PM EDT, BD MINI PEN NEEDLE [id number], See Instructions, Disp# 100 unknown unit, Refills: 2, USE 3 NEEDLES DAILY WITH INSULIN INJECTIONS, Pharmacy [facility] Start Date: 04/26/23 Status: Ordered Quantity: 100.0 Unit: unknown unit Repeat number: 1 BD needle Ultra-Fine III Mini Pen 31G x 5mm Start: 09/28/23 4:31:00 PM EDT, See Instructions, Disp# 100 lancet, Refills: 0, Use as directed withinsulin. Max ____3/day. Use new pen needle with each injection., Pharmacy: [facility] Start Date: 09/28/23 Status: Ordered Quantity: 100.0 Unit: Repeat number: 1 celecoxib 200 mg oral capsule Start: 04/28/23 8:58:00 AM EDT, 1 cap, PO, ONCE, PRN: as needed for pain Start Date: 04/28/23 Status: Ordered Repeat number: 1 Crestor 5 mg oral tablet Start: 03/05/24 1:20:00 PM EDT, 1 tab, PO, Daily, Disp# 90 tab, Refills: 3, Pharmacy: [facility] Start Date: 03/05/24 Status: Ordered Quantity: 90.0 Unit: tab Repeat number: 4 Dexcom G7 Construction Trench Digger Start: 02/01/24 3:12:00 PM EDT, See Instructions, Disp# 1 kit, Refills: 0, use to control BS, Pharmacy: [facility] Start Date: 02/01/24 Status: Ordered Quantity: 1.0 Unit: kit Repeat number: 1 Dexcom G7 Sensor Start: 04/25/24 1:39:00 PM EDT, See Instructions, Disp# 9 kit, Refills: 3, change sensor q10 days tomonitor blood sugars, Pharmacy: [facility] Start Date: 04/25/24 Status: Ordered Quantity: 9.0 Unit: kit Repeat number: 4 Jardiance 10 mg oral tablet Start: 11/12/24 1:57:00 PM EDT, 1 tab, PO, Daily, Disp# 30 tab, Refills: 1, Pharmacy: [id number] Start Date: 11/12/24 Status: Ordered Quantity: 30.0 Unit: tab Repeat number: 2 Lexapro 5 mg oral tablet Start: 03/05/24 1:20:00 PM EDT, 1 tab, PO, Daily, Disp# 90 tab, Refills: 3, Pharmacy: [facility] Start Date: 03/05/24 Status: Ordered Quantity: 90.0 Unit: tab Repeat number: 4 NovoLOG 100 units/mL injectable solution Start: 03/28/24 3:57:00 PM EDT, See Instructions, Disp# 4 each, Refills: 3, use in omnipod with sliding scale insulin max 50 units daily, Pharmacy: [facility] Start Date: 03/28/24 Status: Ordered Quantity: 4.0 Unit: each Repeat number: 4 NovoLOG FlexPen 100 units/mL injectable solution Start: 05/30/23 4:05:00 PM EST, See Instructions, Disp# 15 mL, Refills: 3, TID based on 1 unit 10 carb average use up 30 units daily, Pharmacy: [facility] Start Date: 05/30/23 Status: Ordered Quantity: 15.0 Unit: mL Repeat number: 4 Omnipod 5 G6 Intro Kit Start: 03/05/24 1:09:00 PM EDT, See Instructions, Disp# 1 each, Refills: 0, Use as directed for subcutaneous insuin infusion, Note to Pharmacy: Omnipod 5 G6 intro kit (gen 5) [facility]# [id number], Pharmacy: [facility] Start Date: 03/05/24 Status: Ordered Quantity: 1.0 Unit: each Repeat number: 1 Omnipod 5 G6 Pods Start: 03/26/24 3:33:00 PM EDT, See Instructions, Disp# 45 each, Refills: 3, Use as directed for subcutaneous insulin infusion, change pod every 2 days; dispense 9 packs = 45 pods for 90 day supply, DX: E10.65, Note to Pharmacy: Omnipod 5 G6 pods (gen 5) [facility]# [id number], Pharmacy: [facility] Start Date: 03/26/24 Status: Ordered Quantity: 45.0 Unit: each Repeat number: 4 Ozempic (2 mg dose) 8 mg/3 mL subQ pen Start: 07/05/24 10:10:00 AM EST, 2 mg =, subQ, q7days, Disp# 9 mL, Refills: 2, Pharmacy: [facility] Start Date: 07/05/24 Status: Ordered [...] Literacy Communication Barriers N ever Primary Language Azeri Problem List Condition Confirmation Course Effective Dates [...] Diagnosis Diagnosis Type Effective Dates Health Status Cl inical Service Informant Type 1.5 diabetes, managed as type 1 Discharge Diagnosis 11/12/24 Non-Specified Body mass index [BMI] 24.0-24.9, adult Discharge Diagnosis 11/12/24 Non-Specified HLD (hyperlipidemia) Discharge Diagnosis 11/12/24 Non-Specified Procedures Procedure Date Related Diagnosis Body Site Status Shave biopsy and cauterizati on of skin 1 04/20/21 Completed Procedure 2 Completed 1right forehead 2gastric bypass Results Laboratory List Name Date Albumin/Creatinine Ratio Urine. (Albumin /Creatinine Ratio Urine-ARLN) 11/12/24 Most recent to oldest [Reference Range]: 1 U Albumin-[facility] [See Note: mg/dL] <0.2 m g/dL 1 (11/12/24 1:48 PM) U Alb/Creat Ratio-[facility] [<30] NOTE 2 (11/12/24 1:48 PM) U Creatinine [20-275 mg/dL] 76 mg/dL 3 (11/12/24 1:48 PM) 1Result Comment: Reference Range: Reference Range Not established Specimen Received d/t: 11/13/2024 23:52:00 Lab test performed by: [facility] [place] [address] [address] Andrea Lackey MD 2Result Comment: NOTE: The urine albumin value is less than 0.2 mg/dL therefore we are unable to calculate excretion and/or creatinine ratio. The ADA defines abnormalities in albumin excretion as follows: Albuminuria Category Result (mg/g creatinine) Normal to Mildly increased <30 Moderately increased 30-299 Severely increased > OR = 300 The ADA recommends that at least two of three specimens collected within a 3-6 month period be abnormal before considering a patient to be within a diagnostic category. Specimen Received d/t: 11/13/2024 23:52:00 Lab test performed by: [facility] [address] [place] [address] Andrea Lackey MD 3Result Comment: Specimen Received d/t: 11/13/2024 23:52:00 Lab test performed by: [facility] [address] [place] [address] Andrea Lackey MD Vital Signs Most recent to oldest [Reference Range]: 1 Patient Weight 66.5 kg (11/12/24 1: PM) Body Mass Index 24.37 kg/m2 (11/12/24 1: PM) Heart Rate 99 bpm (11/12/24 1: PM) Respiratory Rate 20 br/min (11/12/24 1: PM) Blood Pressure 116/80mmHg (11/12/24 1: PM) Social History Social History Type Response Smoking Status Never smoked cigaret eren Sex Female Sex Representation Female (finding) FCM Outpt Note * DO Mac Claire S: PERFORM Enid Connors DO, Mariana Annette: MODIFY Event Display: FCM Outpt Note Authored Date: [id number] Chief Complaint f/u labs, A1c History of Present Illness 49 year old female presenting for f/u. - was seen by cardiology this morning -> episodes of chest pain-?anginal equivalent - TTE today, results pending - plan for cath - strong family history of heart disease at young age - cardiology would like to start Jardiance DM Type 1.5 - hemoglobin a1c= 9.9 - Dexcom - Insulin Regimen with Glargine 16 units daily, insulin pump 1.45 units hourly , has not been greatwith bolus with meals - concern for lows overnight - Ozempic 2mg weekly - endocrinology in the past, Dr. Waller, has not been seen recently b/c was well controlled HLD - LDL = 171 - on 5mg rosuvastatin - more labs pending cardiology -> plan to change medication/increase dosing based on labs Review of Systems As per above Physical Exam Vitals & Measurements HR: 99 (Monitored) RR: 20 BP: 116/80 SpO2: 99% WT: 66.5 kg WT: 66.500 kg (Dosing) BMI: 24.37 PHQ2 Data (Data Documented on:11/12/2024 13:26) Emotional health assessment NEGATIVE General: Well-developed, well-nourished patient, in no acute distress, pleasant and normal affect, intact memory. Eyes: No scleral injection or discharge. Lungs: Clear to auscultation bilaterally with good effort. Cardiac: Regular rate and rhythm. No murmurs. Neurologic: Grossly intact cranial nerves Assessment/Plan 1. Type 1.5 diabetes, managed as type 1 Chronic condition not at goal/exacerbated/progressive/side effects of treatment Goal: Hemoglobin a1c less than 7 Data: _ Plan: Room for improvement per pt with pump bolus. Hold on adjusting basal with concern for lows. ?increase pump rate hourly, consider if consistently elevated, but again concern with hypoglycemia. Add Jardiance, more for cardioprotective effect, if type 1 physiology probably wouldn't effect blood sugar a ton. Refer back to endocrinology. 2. HLD (hyperlipidemia) Chronic condition not at goal/exacerbated/progressive/side effects of treatment Goal: LDL less than 70 Data: _ Plan: Discussed increase statin vs other medications. Per pt cardiology considering based on labs/cath-> hold on adjusting until then. F/u 6 weeks. Attestation Pt seen and examined in concert with Dr. Mac, agree with history and physical as documented above. Plan reviewed in detail. Problem List/Past Medical History Ongoing Anemia B12 deficiency Changing skin lesion Dermatofibroma Elevated alkaline phosphatase level Hx of gastric bypass Iron deficiency Multiple nevi Polyarthralgia Situational stress Type 1.5 diabetes, managed as type 1 Procedure/Surgical History •Shave biopsy and cauterization of skin| Service Date: 04/20/2021•Procedure Medications aspirin(aspirin 81 mg oral delayed release tablet), 81 mg= 1 tab, PO, Daily celecoxib(celecoxib 200 mg oral capsule), 200 mg= 1 cap, PO, ONCE, PRN cyanocobalamin(Vitamin B-12 1000 mcg/mL injectable solution), See Instructions diabetes supplies(Dexcom G7 Sensor), See Instructions, 3 refills diabetes supplies(Dexcom G7 Construction Trench Digger), See Instructions empagliflozin(Jardiance 10 mg oral tablet), 10 mg= 1 tab, PO, Daily, 1 refills escitalopram(Lexapro 5 mg oral tablet), 5 mg= 1 tab, PO, Daily, 3 refills glucagon(Baqsimi Two Pack 3 mg nasal powder), 3 mg, intranasal, ONCE, PRN, 3 refills insulin aspart(NovoLOG 100 units/mL injectable [...] See Instructions unlisted medication(BD MINI PEN NEEDLE [id number]), See Instructions Allergies erythromycin (Moderate) Hives Social History Smoking Status Never smoked cigarettes Intake (IView) Smoking History Cigarette smoker: Never smoked cigarettes Tobacco Product Use: Never used other tobacco products Family History Heart attack: Father and PGF. Heart disease: Father. Heart failure: Mother. Hypertension: Father. Stroke: Father. Health Status Family Member(s) Family Member(s) Relationship: PGF, Age: Unknown Immunizations Vaccine Date Status influenza virus vaccine, inactivated 04/22/2020 Recorded hepatitis B adult vaccine 08/23/2014 Recorded Comments : 2020-05-20: Historical information-source unspecified hepatitis B adult vaccine 09/17/2013 Recorded Comments : 2020-05-20: Historical information-source unspecified pneumococcal 23-valent vaccine 12/19/2009 Recorded Comments : 2020-05-20: Historical information-source unspecified Recommendations Health Maintenance Pending (in the next year) OverDue Breast Cancer Screening due 08/12/23 and every 731 day Adult Influenza Vaccine due 01/16/24 and every 1 year Kidney Health Evaluation due 02/08/24 and every 366 day Due Adult Social Determinants of Health Screening due 11/12/24 Unknown Frequency Adult Tdap/Td Vaccine due 11/12/24 Unknown Frequency Cervical Cancer Screening due 11/12/24 Unknown Frequency Colorectal Cancer Screening due 11/12/24 Unknown Frequency Diabetic Eye Exam due 11/12/24 Unknown Frequency Hepatitis C Screening due 11/12/24 One-time only Pneumococcal Vaccine Adults and Adolescents with Chronic Illness due 11/12/24 One-time only Seasonal COVID 19 Vaccine due 11/12/24 Unknown Frequency Due In Future Diabetes Management A1c not due until 10/23/25 and every 366 day Satisfied (in the past 1 year) Satisfied Body Mass Index on 11/12/24. Satisfied by EZEKIEL Hope Gillian Electronic Signature on File Electronically Reviewed/Signed by: Lady Mac DO Author Signature Dt/Tm:11/12/2024 02:13 PM Resident Department of Family Medicine Electronically Reviewed/Signed by: Karly Connors DO Cosigner Signature Dt/Tm: 11/12/2024 03:48 PM Department of Family Medicine CSN Patient Care team information Care Team Personnel Name: DO Howard Kristen M Position: Physician - Family Med Member Role: Primary Care Provider Address: [address] [place] [address] Telecom: [phone] Care Team Related Persons Name: CHRIS YANES Insurance Providers Guarantor name: JOSE YANES Health Plan Information #: 2 Payer: [employer] PCP ONLY Member Number: [id number] Policy Number: NA Group Number: [id number] Payer Identifier: NA Health Plan Information #: 1 Payer: [facility] Member Number: [id number] Policy Number: NA Group Number: [id number] Payer Identifier: [id number] Health Plan Information #: 3 Payer: SELF PAY Member Number: NA Policy Number: NA Group Number: NA Payer Identifier: [id number] Health Plan Information #: 4 Payer: [employer] Member Number: NA Policy Number: NA Group Number: NA Payer Identifier: [id number]"
--- OUTSIDE RECORDS SUMMARY | 2024-11-22 07:15 | External Medical Summary ---
Author Name Unknown Address Unknown Organization : Laboratory Report Ordering Provider Test Date Status Bubba Narayanan 10/22/2024 11:44:00 Final Observation Date Value Abnormality Reference (Units ) Status Cholesterol.total/Chol esterol in HDL [Mass Ratio] in Serum or Plasma 10/25/2024 14:48:14 5.1 Above high normal <5.0 ((calc)) Final
Specimen Received d/t: 10/23/2024 11:31:00

Lab test performed by:
[email or web address], [facility]
[address]
[place] [address]
Andrea Lackey MD Cholesterol [Mass/volume] in Serum or Plasma 10/25/2024 14:48:14 252 Above high normal <200 (mg/d L) Final
Specimen Received d/t: 10/23/2024 11:31:00

Lab test performed by:
[email or web address], [facility]
[address]
[place] [address]
Andrea Lackey MD LDL Chol 10/25/2024 14:48:14 171 Above high normal (m g/dL (calc)) Final Reference range: <100
<b r/>Desirable range <100 mg/dL for primary prevention;
<70 mg/dL for patients with CHD or diabetic patients
with > or = 2 CHD risk factors.

LDL-C is now calculated using the Dimas- Narayan
calculation, which is a validated novel method providing
better accuracy than the Friedewald equation in the
estimation of LDL-C.
Dimas VERA et al. AMBROSIO. 2013;310(19): 2061- 2068
(http://education.Trustpilot/faq/EYX599)

Specimen Received d/t: 10/23/2024 11:31:00

Lab test performed by:
[email or web address], [facility]
[address]
[place] [address]
Andrea Lackey MD Non HDL Chol 10/25/2024 14:48:14 203 Above high normal <130 (mg/dL (calc)) Final For patients with diabetes p bethany 1 major ASCVD risk
factor, treating to a non-HDL-C goal of <100 mg/dL
(LDL-C of <70 mg/dL) is considered a therapeutic
option.

Specimen Received d/t: 10/23/2024 11:31:00

Lab test performed by:
[email or web address], [facility]
[address]
[place] [address]
Andrea Lackey MD Cholesterol in HDL [Mass/volume] in Serum or Plasma 10/25/2024 14:48:14 49 Below low normal > OR = 50 (mg/dL) Final
Specimen Received d/t: 10/23/2024 11:31:00

Lab test performed by:
[facility], [facility]
[address]
[place] [address]
Andrea Lackey MD Triglyceride [Mass/volume] in Serum or Plasma 10/25/2024 14:48:14 174 Above high normal <150 (mg/dL) Fin al
Specimen Received d/t: 10/23/2024 11:31:00

Lab test performed by:
[facility], [facility]
[address]
[place] [address]
Andrea Lackey MD Performing Location
--- OUTSIDE RECORDS SUMMARY | 2024-11-22 07:15 | External Medical Summary ---
Author Name Unknown Address Unknown Organization : Laboratory Report Ordering Provider Test Date Status LadyBubba flores 11/12/2024 15:53:00 Final Observation Date Value Abnormality Reference (Units ) Status U Albumin-[facility] 11/14/2024 14:07:01 <0.2 See Note: (mg/dL) Final Reference Range:

Re ference Range
Not established

Specimen Received d/t: 11/13/2024 23:52:00

Lab test performed by:
[email or web address], [facility]
[address]
[place] [phone]
Andrea Lackey MD Creatinine [Mass/volume] in Urine 11/14/2024 14:07:01 76 20-275 (mg/dL) Final
Specimen Received d/t: 11/13/2024 23:52:00

Lab test performed by:
[email or web address], [facility]
[address]
[place] [address]
Andrea Lackey MD Albumin/Creatinine [Mass Ratio] in Urine 11/14/2024 14:07:01 NOTE <30 Final NOTE: The urine albumin valu e is less than
0.2 mg/dL therefore we [...] d/t: 11/13/2024 23:52:00

Lab test performed by:
[facility], [facility]
[address]
[place] [address]
Andrea Lackey MD Performing Location
--- OUTSIDE RECORDS SUMMARY | 2024-11-22 07:15 | External Medical Summary | Continuity of Care Document ---
Author Name Unknown Organization [address] Address [address] [place] [address] [place] [id number] Care Team Providers Care Filling Operator Name Role Phone Sharri Howard Primary Care Physician [phone] Encounter [facility] [id number] Date(s): 10/18/24 - 10/18/[address], [address] [place] [address] [phone] Encounter Diagnosis Body mass index [BMI] 23.0-23.9, adult(Discharge Diagnosis) - 10/18/24 Chest tightness(Discharge Diagnosis) - 10/18/24 Neck pain(Discharge Diagnosis) - 10/18/24 Upper extremity pain(Discharge Diagnosis) - 10/18/24 B12 deficiency(Discharge Diagnosis) - 10/18/24 Discharge Disposition: Home or Self Care Attending Physician: DO Howard Kristen M Referring Physician: DO Howard Kristen M Encounter Type: Clinic Allergies, Adverse Reactions, Alerts Substance Criticality Severity Reaction Reaction Severity Status erythromycin Unable to assess criticality Moderate Hives Active Assessment and Plan Extracted from: Title:Office Visit Note Author:DO Mac Clair e S Date:10/18/24 1. Chest tightness Undifferentiated new problem with uncertain prognosis Goal: Resolution Data: unique tests ordered: _CBC, CMP, ESR, CRP, lipid panel, hemoglobin a1c Plan: EKG in office without acute ischemic changes. ?non specific ST abnormalities. No active pain at present-> if worsening pain/pain that does not resolve discussed need for emergent evaluation. ?unstable angina vs inflammatory vs abnormal GERD presentation. Given risk factors and family history -> refer to cardiology. Labs as per above. 2. Neck pain As per above 3. Upper extremity pain As per above 4. B12 deficiency Chronic condition, at goal Goal: Stability Data: unique tests ordered: _B12 Plan: Requesting B12 injection, states that she is due. Repeat B12. Immunizations Given and Recorded Vaccine Date Status Refusal Reason influenza virus vaccine, inactivated 04/22/20 Dionicio rded hepatitis B adult vaccine 1 08/23/14 Recorded hepatitis B adult vaccine 2 09/17/13 Recorded pneumococcal 23-valent vaccine 3 12/19/09 Recorded 1Result Comment: 2020-05-20: Historical information-source unspecified 2Result Comment: 2020-05-20: Historical information-source unspecified 3Result Comment: 2020-05-20: Historical information-source unspecified Medications Basaglar KwikPen 100 units/mL subcutaneous solution Start: 03/27/24 9:36:00 AM EDT, 50 unit =, subQ, Daily, Disp# 50 mL, Refills: 3, Pharmacy: [facility] Start Date: 03/27/24 Stop Date: 03/22/25 Status: Ordered Quantity: 50.0 Unit: mL Repeat number: 4 BD MINI PEN NEEDLE [id number] Start: 04/26/23 5:44:00 PM EDT, BD MINI PEN NEEDLE [id number], See Instructions, Disp# 100 unknown unit, Refills: 2, USE 3 NEEDLES DAILY WITH INSULIN INJECTIONS, Pharmacy [facility] Start Date: 04/26/23 Status: Ordered Quantity: 100.0 Unit: unknown unit Repeat number: 1 BD needle Ultra-Fine III Mini Pen 31G x 5mm Start: 09/28/23 4:31:00 PM EDT, See Instructions, Disp# 100 lancet, Refills: 0, Use as directed withinsulin. Max ____3/day. Use new pen needle with each injection., Pharmacy: [facility] Start Date: 09/28/23 Status: Ordered Quantity: 100.0 Unit: Repeat number: 1 celecoxib 200 mg oral capsule Start: 04/28/23 8:58:00 AM EDT, 1 cap, PO, ONCE, PRN: as needed for pain Start Date: 04/28/23 Status: Ordered Repeat number: 1 Crestor 5 mg oral tablet Start: 03/05/24 1:20:00 PM EDT, 1 tab, PO, Daily, Disp# 90 tab, Refills: 3, Pharmacy: [facility] Start Date: 03/05/24 Status: Ordered Quantity: 90.0 Unit: tab Repeat number: 4 Dexcom G7 [employer] Coach Start: 02/01/24 3:12:00 PM EDT, See Instructions, Disp# 1 kit, Refills: 0, use to control BS, Pharmacy: [facility] Start Date: 02/01/24 Status: Ordered Quantity: 1.0 Unit: kit Repeat number: 1 Dexcom G7 Sensor Start: 04/25/24 1:39:00 PM EDT, See Instructions, Disp# 9 kit, Refills: 3, change sensor q10 days tomonitor blood sugars, Pharmacy: [facility] Start Date: 04/25/24 Status: Ordered Quantity: 9.0 Unit: kit Repeat number: 4 Lexapro 5 mg oral tablet Start: 03/05/24 1:20:00 PM EDT, 1 tab, PO, Daily, Disp# 90 tab, Refills: 3, Pharmacy: [facility] Start Date: 03/05/24 Status: Ordered Quantity: 90.0 Unit: tab Repeat number: 4 NovoLOG 100 units/mL injectable solution Start: 03/28/24 3:57:00 PM EDT, See Instructions, Disp# 4 each, Refills: 3, use in omnipod with sliding scale insulin max 50 units daily, Pharmacy: [facility] Start Date: 03/28/24 Status: Ordered Quantity: 4.0 Unit: each Repeat number: 4 NovoLOG FlexPen 100 units/mL injectable solution Start: 05/30/23 4:05:00 PM EST, See Instructions, Disp# 15 mL, Refills: 3, TID based on 1 unit 10 carb average use up 30 units daily, Pharmacy: [facility] Start Date: 05/30/23 Status: Ordered Quantity: 15.0 Unit: mL Repeat number: 4 Omnipod 5 G6 Intro Kit Start: 03/05/24 1:09:00 PM EDT, See Instructions, Disp# 1 each, Refills: 0, Use as directed for subcutaneous insuin infusion, Note to Pharmacy: Omnipod 5 G6 intro kit (gen 5) [facility]# [id number], Pharmacy: [facility] Start Date: 03/05/24 Status: Ordered Quantity: 1.0 Unit: each Repeat number: 1 Omnipod 5 G6 Pods Start: 03/26/24 3:33:00 PM EDT, See Instructions, Disp# 45 each, Refills: 3, Use as directed for subcutaneous insulin infusion, change pod every 2 days; dispense 9 packs = 45 pods for 90 day supply, DX: E10.65, Note to Pharmacy: Omnipod 5 G6 pods (gen 5) [facility]# [id number], Pharmacy: [facility] Start Date: 03/26/24 Status: Ordered Quantity: 45.0 Unit: each Repeat number: 4 Ozempic (2 mg dose) 8 mg/3 mL subQ pen Start: 07/05/24 10:10:00 AM EST, 2 mg =, subQ, q7days, Disp# 9 mL, Refills: 2, Pharmacy: [facility] Start Date: 07/05/24 Status: Ordered Quantity: 9.0 Unit: mL Repeat number: 1 Vitamin B12 Start: 02/07/23 10:11:00 AM EDT, See Instructions, 500 mg 1 spray daily Start Date: 02/07/23 Status: Ordered Repeat number: 1 Mental Status 10/18/24 Barriers to Learning one year None evide nt Mandatory Health Literacy Documentation Yes Health Literacy Communication Barriers N ever Primary Language French Problem List Condition Confirmation Course Effective Dates [...] Effective Dates Health Status Clinical Service Informant Body mass index [BMI] 23.0-23.9, adult Discharge Diagnosis 10/18/24 Non-Specified Neck pain Discharge Diagnosis 10/18/24 Non-Specified Chest tightness Discharge Diagnosis 10/18/24 Non-Specified B12 deficiency Discharge Diagnosis 10/18/24 Non-Specified Upper extremity pain Discharge Diagnosis 10/18/24 Non-Specified Procedures Procedure Date Related Diagnosis Body Site Status Shave biopsy and cauterizati on of skin 1 04/20/21 Completed Procedure 2 Completed 1right forehead 2gastric bypass Vital Signs Most recent to oldest [Reference Range]: 1 Height 165.2 cm (10/18/24 7:57 AM) Patient Weight 64.6 kg (10/18/24 7:57 AM) Body Mass Index 23.67 kg/m2 (10/18/24 7:57 AM) Temperature [36.5-37.9 DegC] 35.9 DegC *LOW* (10/18/24 7:57 AM) Heart Rate 87 bpm (10/18/24 7:57 AM) Blood Pressure 120/80mmHg (10/18/24 7:57 AM) Cuff Pulse Pressure 40 mmHg (10/18/24 7:57 AM) Social History Social History Type Response Smoking Status Never smoked cigaret eren Sex Female Sex Representation Female (finding) EKG study * Contributor_system, MUSE01: VERIFY, PERFORM Event Display: EKG Authored Date: Please click on link to see image. FCM Outpt Note * DO Howard Kristen M: MODIFY DO Howard Kristen M: MODIFY Event Display: FCM Outpt Note Authored Date: [id number] Chief Complaint Last couples weeks from head to above abdomen. Has been taking pain meds and prilosec. Happens different times. Helps to stretch. Has alot more burping, nausea. History of Present Illness 49 year old female presenting with concern for episodic upper body pain. - x 2 months - intermittent, no triggers - epigastric, jaw, neck, teeth, shoulders, head -> B/L and symmetric - "heaviness/tightness/constricting" - lasts for a few minutes to an hour - happens about once a day - not exertional, denies associated symptoms -> dyspnea, lightheadedness, nausea - awoke her from sleep on one occasion - not panic attack, not during times of stress - increased burping, intermittent nausea that predates current symptoms and not assoicated with these "episodes" - has been Prilosec daily -> 20mg daily with some ?improvement - has also been taking Tylenol - moving/stretching helps to get rid of it Review of Systems As per above Physical Exam Vitals & Measurements T: 35.9 °C HR: 87 (Monitored) BP: 120/80 SpO2: 95% HT: 165.2 cm WT: 64.600 kg (Dosing) WT: 64.6 kg BMI: 23.67 PHQ2 Data (Data Documented on:10/18/2024 07:54) Emotional health assessment NEGATIVE General: Well-developed, well-nourished patient, in no acute distress, pleasant and normal affect, intact memory. Eyes: No scleral injection or discharge. Lungs: Clear to auscultation bilaterally with good effort. Cardiac: Regular rate and rhythm. No murmurs. Neurologic: Grossly intact cranial nerves Assessment/Plan 1. Chest tightness Undifferentiated new problem with uncertain prognosis Goal: Resolution Data: unique tests ordered: _CBC, CMP, ESR, CRP, lipid panel, hemoglobin a1c Plan: EKG in office without acute ischemic changes. ?non specific ST abnormalities. No active pain at present-> if worsening pain/pain that does not resolve discussed need for emergent evaluation.?unstable angina vs inflammatory vs abnormal GERD presentation. Given risk factors and family history -> refer to cardiology. Labs as per above. 2. Neck pain As per above 3. Upper extremity pain As per above 4. B12 deficiency Chronic condition, at goal Goal: Stability Data: unique tests ordered: _B12 Plan: Requesting B12 injection, states that she is due. Repeat B12. Attestation I saw the patient and confirmed the lyles portions of the history and physical exam and agree with the impression and plan above. EKG does look slightly diff to me in the inferior leads will await for cardio imput Problem List/Past Medical History Ongoing Anemia B12 deficiency Changing skin lesion Dermatofibroma Elevated alkaline phosphatase level Hx of gastric bypass Iron deficiency Multiple nevi Polyarthralgia Situational stress Type 1.5 diabetes, managed as type 1 Procedure/Surgical History •Shave biopsy and cauterization of skin| Service Date: 04/20/2021•Procedure Medications celecoxib(celecoxib 200 mg oral capsule), 200 mg= 1 cap, PO, ONCE, PRN cyanocobalamin(Vitamin B12), See Instructions diabetes supplies(Dexcom G7 Sensor), See Instructions, 3 refills diabetes supplies(Dexcom G7 Track And Field Coach), See Instructions escitalopram(Lexapro 5 mg oral tablet), [...] See Instructions unlisted medication(BD MINI PEN NEEDLE [id number]), See Instructions Allergies erythromycin (Moderate) Hives Social History Smoking Status Never smoked cigarettes Intake (IView) Smoking History Cigarette smoker: Never smoked cigarettes Tobacco Product Use: Never used other tobacco products SHX E-Cigarette Use: Never Immunizations Vaccine Date Status influenza virus vaccine, [...] Evaluation due 02/08/24 and every 366 day Diabetes Management A1c due 04/28/24 and every 366 day Due Adult Social Determinants of Health Screening due 10/18/24 Unknown Frequency Adult Tdap/Td Vaccine due 10/18/24 Unknown Frequency Cervical Cancer Screening due 10/18/24 Unknown Frequency Colorectal Cancer Screening due 10/18/24 Unknown Frequency Diabetic Eye Exam due 10/18/24 Unknown Frequency Hepatitis C Screening due 10/18/24 One-time only Pneumococcal Vaccine Adults and Adolescents with Chronic Illness due 10/18/24 One-time only Seasonal COVID 19 Vaccine due 10/18/24 Unknown Frequency Satisfied (in the past 1 year) Satisfied Body Mass Index on 10/18/24. Satisfied by [employer], [employer]LOBAL CMO, Randa Electronic Signature on File Electronically Reviewed/Signed by: Lady Mac DO Author Signature Dt/Tm:10/18/2024 09:17 AM Resident Department of Family Medicine Electronically Reviewed/Signed by: Sharri Howard DO Cosigner Signature Dt/Tm: 10/18/2024 09:36 AM Department of Family Medicine CSN Patient Care team information Care Team Personnel Name: DO Howard Kristen M Position: Physician - Family Med Member Role: Primary Care Provider Address: [address] [place] [address] Telecom: [phone] Care Team Related Persons Name: CHRIS YANES Insurance Providers Guarantor name: JOSE YANES Health Plan Information #: 1 Payer: [facility] Member Number: [id number] Policy Number: NA Group Number: [id number] Health Plan Information #: 2 Payer: [employer] PCP ONLY Member Number: [id number] Policy Number: NA Group Number: [id number] Health Plan Information #: 3 Payer: SELF PAY Member Number: NA Policy Number: NA Group Number: NA Health Plan Information #: 4 Payer: [employer] Member Number: NA Policy Number: NA Group Number: NA
--- OUTSIDE RECORDS SUMMARY | 2024-11-22 07:15 | External Medical Summary ---
Author Name Unknown Address Unknown Organization : Laboratory Report Ordering Provider Test Date Status Bubba Narayanan 10/22/2024 11:44:00 Final Observation Date Value Abnormality Reference (Units ) Status Urea nitrogen/Creatinine [Mass Ratio] in Serum or Plasma 10/25/2024 14:48:14 SEE NOTE: 6-22 ((calc)) Final Not Reported: BUN and Creati nine are within
reference range.

Specimen Received d/t: 10/23/2024 11:31:00

Lab test performed by:
[facility] [employer], [facility]
[address]
[place] [address]
Andrea Lackey MD [facility] 10/25/2024 14:48:14 9.1 8.6-10.2 ( mg/dL) Final
Specimen Received d/t: 10/23/2024 11:31:00

Lab test performed by:
[facility] [employer], [facility]
[address]
[place] [address]
Andrea Lackey MD Bilirubin.total [Mass/volume ] in Serum or Plasma 10/25/2024 14:48:14 0.8 0.2-1.2 (mg/dL) Fi nal
Specimen Received d/t: 10/23/2024 11:31:00

Lab test performed by:
[facility] [employer], [facility]
[address]
[place] [address]
Andrea Lackey MD Urea nitrogen [Mass/volume] in Serum or Plasma 10/25/2024 14:48:14 10 7-25 (mg/dL) Final
Specimen Received d/t: 10/23/2024 11:31:00

Lab test performed by:
[facility] [employer], [facility]
[address]
[place] [address]
Andrea Lackey MD Potassium [Moles/volume] in Serum or Plasma 10/25/2024 14:48:14 4.5 3.5-5.3 (mmol/L) Billie l
Specimen Received d/t: 10/23/2024 11:31:00

Lab test performed by:
[facility] [employer], [facility]
[address]
[place] [address]
Andrea Lackey MD Aspartate aminotransferase [ Enzymatic activity/volume] in Serum or Plasma 10/25/2024 14:48:14 21 10-35 (U/L) Final
Specimen Received d/t: 10/23/2024 11:31:00

Lab test performed by:
[facility], [facility]
[address]
[place] [address]
Andrea Lackey MD Albumin [Mass/volume] in Ser um or Plasma 10/25/2024 14:48:14 4.0 3.6-5.1 (g/dL) Final
Specimen Received d/t: 10/23/2024 11:31:00

Lab test performed by:
[facility] [employer], [facility]
[address]
[place] [address]
Andrea Lackey MD eGFR 10/25/2024 14:48:14 114 > OR = 60 (mL/min/1.73m2) Final
Specimen Received d/t: 10/23/2024 11:31:00

Lab test performed by:
[facility], [facility]
[address]
[place] [address]
Andrea Lackey MD Carbon dioxide, total [Moles /volume] in Serum or Plasma 10/25/2024 14:48:14 26 20-32 (mmol/L) Fin al
Specimen Received d/t: 10/23/2024 11:31:00

Lab test performed by:
[facility], [facility]
[address]
[place] [address]
Andrea Lackey MD Albumin/Globulin [Mass Ratio ] in Serum or Plasma 10/25/2024 14:48:14 1.7 1.0-2.5 ((calc)) F inal
Specimen Received d/t: 10/23/2024 11:31:00

Lab test performed by:
[facility], [facility]
[address]
[place] [address]
Andrea Lackey MD Glucose [Mass/volume] in Serum or Plasma 10/25/2024 14:48:14 259 Above high normal 65-99 (mg/dL) Final
Fasting reference inte rval

For someone without known diabetes, a glucose
value >125 mg/dL indicates that they may have
diabetes and this should be confirmed with a
follow-up test.

Specimen Received d/t: 10/23/2024 11:31:00

Lab test performed by:
[facility], [facility]
[address]
[place] [address]
Andrea Lackey MD Sodium [Moles/volume] in Ser um or Plasma 10/25/2024 14:48:14 135 135-146 (mmol/L) Billie l
Specimen Received d/t: 10/23/2024 11:31:00

Lab test performed by:
[facility], [facility]
[address]
[place] [address]
Andrea Lackey MD Alkaline phosphatase [Enzyma tic activity/volume] in Serum or Plasma 10/25/2024 14:48:14 121 31-125 (U/L) Final
Specimen Received d/t: 10/23/2024 11:31:00

Lab test performed by:
[facility], [facility]
[address]
[place] [address]
Andrea Lackey MD Protein [Mass/volume] in Ser um or Plasma 10/25/2024 14:48:14 6.4 6.1-8.1 (g/dL) Final
Specimen Received d/t: 10/23/2024 11:31:00

Lab test performed by:
[facility], [facility]
[address]
[place] [address]
Andrea Lackey MD Creatinine [Mass/volume] in Serum or Plasma 10/25/2024 14:48:14 0.55 0.50-0.99 (mg/dL) Fin al
Specimen Received d/t: 10/23/2024 11:31:00

Lab test performed by:
[facility] [employer], [facility]
[address]
[place] [address]
Andrea Lackey MD [facility] 10/25/2024 14:48:14 2.4 1.9-3 .7 (g/dL (calc)) Final
Specimen Received d/t: 10/23/2024 11:31:00

Lab test performed by:
[facility], [facility]
[address]
[place] [address]
Andrea Lackey MD Chloride [Moles/volume] in S eric or Plasma 10/25/2024 14:48:14 100 98-110 (mmol/L) Final
Specimen Received d/t: 10/23/2024 11:31:00

Lab test performed by:
[facility], [facility]
[address]
[place] [address]
Andrea Lackey MD Alanine aminotransferase [En zymatic activity/volume] in Serum or Plasma 10/25/2024 14:48:14 28 6-29 (U/L) Final
Specimen Received d/t: 10/23/2024 11:31:00

Lab test performed by:
[facility], [facility]
[address]
[place] [address]
Andrea Lackey MD Performing Location
--- OUTSIDE RECORDS SUMMARY | 2024-11-22 07:15 | External Medical Summary ---
Author Name Unknown Address Unknown Organization : Laboratory Report Ordering Provider Test Date Status Bubba Narayanan 10/22/2024 11:44:00 Final Observation Date Value Abnormality Reference (Units ) Status eAG (mg/dL) 10/25/2024 14:48:14 237 (mg/dL) Final
Specimen Received d/t: 10/23/2024 11:31:00

Lab test performed by:
[employer] [facility], [facility]
[address]
[place] [address]
Andrea Lackey MD Hemoglobin A1c/Hemoglobin.total in Blood 10/25/2024 14:48:14 9.9 Above high normal <5.7 (% of total Hgb) Final For someone without known di abetes, a hemoglobin A1c
value of 6.5% or greater indicates that they may have
diabetes and this should be confirmed with a follow-up
test.

For someone with known diabetes, a value <7% indicates
that their diabetes is well controlled and a value
greater than or equal to 7% indicates suboptimal
control. A1c targets should be individualized based on
duration of diabetes, age, comorbid conditions, and
other considerations.

Currently, no consensus exists regarding use of
hemoglobin A1c for diagnosis of diabetes for children.

Specimen Received d/t: 10/23/2024 11:31:00

Lab test performed by:
[employer], [facility]
[address]
[place] [address]
Andrea Lackey MD eAG (mmol/L) 10/25/2024 14:48:14 13.2 (mmol/L ) Final FASTING:UNKNOWN

FAS TING: UNKNOWN

Specimen Received d/t: 10/23/2024 11:31:00

Lab test performed by:
[facility], [facility]
[address]
[place] [address]
Andrea Lackey MD Performing Location
--- OUTSIDE RECORDS SUMMARY | 2024-11-22 07:15 | External Medical Summary ---
Author Name Unknown Address Unknown Organization : Laboratory Report Ordering Provider Test Date Status Bubba Narayanan 10/22/2024 11:44:00 Final Observation Date Value Abnormality Reference (Units ) Status C reactive protein [Mass/volume] in Serum or Plasma 10/25/2024 14:48:14 <3.0 <8.0 (mg/L) Final
Specimen Received d/t: 10/23/2024 11:31:00

Lab test performed by:
[facility]
[address]
[place] [address]
Andrea Lackey MD Performing Location
--- OUTSIDE RECORDS SUMMARY | 2024-11-22 07:15 | External Medical Summary ---
Author Name Unknown Address Unknown Organization : Laboratory Report Ordering Provider Test Date Status Bubba Narayanan 10/22/2024 11:44:00 Final Observation Date Value Abnormality Reference (Units ) Status Erythrocyte sedimentation rate by Westergren method 10/25/2024 14:48:14 2 < OR = 20 Final
Specimen Received d/t: 10/23/2024 11:31:00

Lab test performed by:
[facility]
[address]
[place] [address]
Andrea Lackey MD Performing Location
--- OUTSIDE RECORDS SUMMARY | 2024-11-22 07:15 | External Medical Summary ---
Author Name Unknown Address Unknown Organization : Laboratory Report Ordering Provider Test Date Status Bubba Narayanan 10/22/2024 11:44:00 Final Observation Date Value Abnormality Reference (Units ) Status Monocytes/100 leukocytes in Blood by Automated count 10/25/2024 14:48:14 6.0 (%) Final
Specimen Received d/t: 10/23/2024 11:31:00

Lab test performed by:
[facility], [facility]
[address]
[place] [address]
Andrea Lackey MD Monocytes [#/volume] in Bloo d by Automated count 10/25/2024 14:48:14 498 200-950 (cells/uL) Final
Specimen Received d/t: 10/23/2024 11:31:00

Lab test performed by:
[employer] [facility], [facility]
[address]
[place] [address]
Andrea Lackey MD MCV [Entitic volume] by Auto mated count 10/25/2024 14:48:14 88.8 80.0-100.0 (fL) Final
Specimen Received d/t: 10/23/2024 11:31:00

Lab test performed by:
[facility] [facility], [facility]
[address]
[place] [address]
Andrea Lackey MD Platelet mean volume [Entiti c volume] in Blood by Rehana 10/25/2024 14:48:14 12.4 7.5-12.5 (f L) Final
Specimen Received d/t: 10/23/2024 11:31:00

Lab test performed by:
[facility], [facility]
[address]
[place] [address]
Andrea Lackey MD Basophils [#/volume] in Bloo d by Automated count 10/25/2024 14:48:14 42 0-200 (cells/uL) F inal
Specimen Received d/t: 10/23/2024 11:31:00

Lab test performed by:
[facility] [facility], [facility]
[address]
[place] [address]
Andrea Lackey MD Basophils/100 leukocytes in Blood by Automated count 10/25/2024 14:48:14 0.5 (%) Final
Specimen Received d/t: 10/23/2024 11:31:00

Lab test performed by:
[facility], [facility]
[address]
[place] [address]
Andrea Lackey MD Erythrocytes [#/volume] in Blood by Automated count 10/25/2024 14:48:14 4.63 3.80-5.10 (Million/uL) Final
Specimen Received d/t: 10/23/2024 11:31:00

Lab test performed by:
[facility] [facility]
[address]
[place] [address]
Andrea Lackey MD MCHC [Mass/volume] by Automated count 10/25/2024 14:48:14 31.6 Below low normal 32.0-36.0 (g/dL) Final For adults, a slight decreas e in the calculated MCHC
value (in the range of 30 to 32 g/dL) is most likely
not clinically significant; however, it should be
interpreted with caution in correlation with other
red cell parameters and the patient's clinical
condition.

Specimen Received d/t: 10/23/2024 11:31:00

Lab test performed by:
[facility], [facility]
[address]
[place] [address]
Andrea Lackey MD Lymphocytes [#/volume] in Bl ood by Automated count 10/25/2024 14:48:14 2108 850-3900 (cells /uL) Final
Specimen Received d/t: 10/23/2024 11:31:00

Lab test performed by:
[facility] [facility], [facility]
[address]
[place] [address]
Andrea Lackey MD Lymphocytes/100 leukocytes i n Blood by Automated count 10/25/2024 14:48:14 25.4 (%) Final
Specimen Received d/t: 10/23/2024 11:31:00

Lab test performed by:
[facility], [facility]
[address]
[place] [address]
Andrea Lackey MD Hematocrit [Volume Fraction] of Blood by Automated count 10/25/2024 14:48:14 41.1 35.0-45.0 (%) F inal
Specimen Received d/t: 10/23/2024 11:31:00

Lab test performed by:
[facility], [facility]
[address]
[place] [address]
Andrea Lackey MD Platelets [#/volume] in Bloo d by Automated count 10/25/2024 14:48:14 297 140-400 (Thousa nd/uL) Final
Specimen Received d/t: 10/23/2024 11:31:00

Lab test performed by:
[facility], [facility]
[address]
[place] [address]
Andrea Lackey MD Eosinophils/100 leukocytes i n Blood by Automated count 10/25/2024 14:48:14 0.7 (%) Final
Specimen Received d/t: 10/23/2024 11:31:00

Lab test performed by:
[facility], [facility]
[address]
[place] [address]
Andrea Lackey MD Eosinophils [#/volume] in Bl ood by Automated count 10/25/2024 14:48:14 58 15-500 (cells/uL) Final
Specimen Received d/t: 10/23/2024 11:31:00

Lab test performed by:
[facility], [facility]
[address]
[place] [address]
Andrea Lackey MD Leukocytes [#/volume] in Blo od by Automated count 10/25/2024 14:48:14 8.3 3.8-10.8 (Thous and/uL) Final
Specimen Received d/t: 10/23/2024 11:31:00

Lab test performed by:
[facility], [facility]
[address]
[place] [address]
Andrea Lackey MD MCH [Entitic mass] by Automated count 10/25/2024 14:48:14 28 .1 27.0-33.0 (pg) Final
Specimen Received d/t: 10/23/2024 11:31:00

Lab test performed by:
[facility], [facility]
[address]
[place] [address]
Andrea Lackey MD Neutrophils [#/volume] in Bl ood by Automated count 10/25/2024 14:48:14 5594 3823-1133 (cell s/uL) Final
Specimen Received d/t: 10/23/2024 11:31:00

Lab test performed by:
[facility], [facility]
[address]
[place] [address]
Andrea Lackey MD Neutrophils/100 leukocytes i n Blood by Automated count 10/25/2024 14:48:14 67.4 (%) Final
Specimen Received d/t: 10/23/2024 11:31:00

Lab test performed by:
[facility], [facility]
[address]
[place] [address]
Andrea Lackey MD Hemoglobin [Mass/volume] in Blood 10/25/2024 14:48:14 13.0 11.7-15.5 (g/dL) Final
Specimen Received d/t: 10/23/2024 11:31:00

Lab test performed by:
[facility], [facility]
[address]
[place] [address]
Andrea Lackey MD Erythrocyte distribution wid th [Ratio] by Automated count 10/25/2024 14:48:14 12.5 11.0-15.0 (%) F inal
Specimen Received d/t: 10/23/2024 11:31:00

Lab test performed by:
[facility], [facility]
[address]
[place] [address]
Andrea Lackey MD Performing Location
[2024-11-22] MEDS: niCARdipine 2,000 MCG/20 ML SYR ONE (08:41)
[2024-11-22] MEDS: NITROGLYCERIN/D5W 100MCG/ML 20ML SYR ONE (08:41)
[2024-11-22] MEDS: MIDAZOLAM HCL 1 MG/ML 2ML VIAL ONE ×3 (10:12→10:35)
[2024-11-22] MEDS: HEPARIN (PORCINE) 1000 UNIT/ML 10 ML (CATH LAB USE ONLY) ONE ×2 (10:12→10:43)
[2024-11-22] MEDS: fentaNYL citrate PF 100 MCG/2 ML VIAL ONE ×2 (10:12→10:35)
[2024-11-22] MEDS: CLOPIDOGREL BISULFATE 300 MG TAB ONE (10:43)
[2024-11-22] MEDS: OPTIRAY 350 ONE (10:44)
--- NOTE | 2024-11-22 10:58 | Post Anesthesia Assessment ---
Date of Service November 22, 2024 Post Sedation Assessment Vital Signs Temp Pulse Resp BP Pulse Ox O2 Del Method 11/22/24 07:23 98.2 F 81 16 125/85 99 Room Air Recovery Score Activity: Moves 4 extremities Respiration: Deep Breath/Cough Circulation: +/-20% PreAnes Value Consciousness: Fully Awake Oxygen Saturation: O2 needed for >90% Discharge Sedation Level of Care: Fast Track Phase II
[2024-11-22] MEDS ORDERED: NITROGLYCERIN SL 0.4 MG/TAB TAB SL PRN (11:02)
[2024-11-22] MEDS ORDERED: MELATONIN 3 MG TAB PO PRN (11:02)
--- NOTE | 2024-11-22 11:02 | Cardiac Catheterization ---
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 Status Clinical evaluation leading to the procedure CAD Presenation: Unstable angina Diagnostic Physicians Name: Quintin Collins MD Closure Device Recommendations: PCI without planned CABG Cardiac Cath Procedure Full Procedure Date November 22, 2024 Pre-Procedure Diagnosis Pre-Procedure Diagnosis: Angina AUC Score AUC Score: 7 Post-Procedure Diagnosis Post-Procedure Diagnosis: Severe CAD, Successful PCI and Normal Intracardiac Pressures Procedure(s) Performed Procedure(s) Performed: Coronary Angiography, Left Heart Cath, Drug Eluting Stent and IVUS Scheduler Quintin Collins MD Sql Analyst(s) Edd Estimated Blood Loss Estimated Blood Loss: 15 Medication(s) Medication(s): Clopidogrel, Fentanyl, Heparin, Lidocaine 1%, Nicardipine, Nitroglycerin and Versed Summary of Findings Indication: Angina, ASCVD risk factors Access: 6 Fr slender right radial artery Catheters: [place], EBU 3.5 guide, JR4 guide Findings: LM -normal caliber, no significant disease LAD -medium caliber, 30% proximal to mid disease, 80 to 90% stenosis at takeoff of D2. 30-40% mid segment disease after D2, distal vessel without significant disease and wraps around apex. Small D2 50% ostial stenosis. Circumflex -small caliber, mid segment luminal irregularities RCA -dominant, large caliber, 100% mid occlusion. Minimal antegrade flow in distal vessel. PDA/PLB's fill retrograde via collaterals primarily from LAD LVEDP -18 -- PCI of LAD-- Antithrombotic therapy: Heparin, clopidogrel Procedure: Left main cannulated with EBU 3.5 guide Pre-procedure flow STACEY 3 [place] blue wire passed across lesion into distal LAD Skeiner 50 wire placed into D2 Alvarado IVUS catheter placed to mid LAD. Pullback revealed diffuse minimally calcified, heterogeneous plaque extending from mid segment across D2 and back to proximal LAD. No significant ostial LAD or left main disease. Mid LAD lesion predilated with 2.5 compliant balloon Dilated lesion stented with 3.0 x 23 mm Xience drug-eluting stent Stent post-dilated with 3.5 noncompliant balloon IC vasodilators administered for spasm Temporary impaired flow in D2. Attempt made to rewire with whisper/jet pilot 50 wire. Flow improved with removal of initial wire and IC vasodilators. Repeat IVUS of LAD revealed well-expanded, well apposed stent with no apparent edge complications. Post procedure STACEY 3 flow, stent well expanded with minimal residual stenosis. Small jailed 2 with severe residual ostial disease but STACEY-3 flow. No other apparent complications. PCI of RCA RCA cannulated with JR4 guide Mid RCA occlusion crossed with jet pilot 50 wire. Wire crossing of occlusion more consistent with acute lesion With the aid of a guideliner mid RCA dilated with 3.0 balloon Mid RCA stented with 4.0 x 28 mm Xience drug-eluting stent Stent postdilated with 4.5 NC balloon IC vasodilators administered for spasm Postprocedure STACEY-3 flow, stent well-expanded with minimal residual stenosis. No other apparent coronary complications. Arterial Closure: TR band Summary: 1. Severe multivessel coronary artery disease - 80-90% mid LAD stenosis at takeoff of D2 100% occluded mid RCA with [id number] collaterals 2. Borderline intracardiac filling pressure 3. Successful PCI of mid LAD with single drug-eluting stent (3.0 x 23 mm Xience; postdilated with 3.5 NC). 4. Successful PCI of mid RCA occlusion with single drug-eluting stent (4.0 x 28 mm Xience; postdilated with 4.5 NC). 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 Any exceptions are noted below. [facility] Card Cath Procedure Codes Cardiac Catheterization Procedure 1: Cardiovascular Cath Procedures: 82955 Coronaries and LHC (+/-LV) Therapeutic Services & Ancillary Procedure 1: Cardiovascular Tx and Anc Procedures: 08110 IV Ultrasound (Coronary or Graft) Moderate Sedation Procedure 1: Sedation/Anesthesia: 44647 Mod Sedation by the same physician;Init15 Min Child Age 5 & Up Procedure 2: Sedation/Anesthesia: 10743 Mod Sedation by the same physician; Ea [id number] Minutes Stenting Procedure 1: Cardiovascular Stent Procedures: 04463 Perc transluminal revascularization of chronic total occlusion, Procedure 2: Cardiovascular Stent Procedures: 40888 Ea addl branch of a major coronary artery PG Care Time/CCT Total # of Minutes Spent Total Time Spent with Patient: Total time spent is greater than 50% in coordination of care (as documented) at patient's floor/unit and/or counseling patient:
[2024-11-22] MEDS ORDERED: CARBOHYDRATES FOR HYPOGLYCEMIA PO PRN (11:07)
[2024-11-22] MEDS ORDERED: GLUCAGON FOR INJ 1 MG VIAL SQ PRN (11:07)
[2024-11-22] MEDS ORDERED: GLUCOSE 40% GEL 15 GM TUBE PO PRN (11:07)
[2024-11-22] MEDS ORDERED: GLUCOSE 10 TAB/TUBE PO PRN (11:07)
[2024-11-22] MEDS ORDERED: DEXTROSE 50% 50 ML SYRINGE IV PRN (11:07)
[2024-11-22] MEDS ORDERED: PHARMACY GLYCEMIC MGMT CONSULT PRN (11:32)
[2024-11-22] MEDS: ONDANSETRON INJ 2 MG/ML 2 ML VIAL IV PRN (12:12)
[2024-11-22] MEDS: SODIUM CHLORIDE 0.9% 500 ML IV ONE (12:42)
[2024-11-22] MEDS: ACETAMINOPHEN 325 MG TAB PO PRN (13:05)
[2024-11-22] MEDS: ALUMINUM/MAGNESIUM SUSP 30 ML UDC PO PRN (13:05)
[2024-11-22] MEDS ORDERED: NON-FORMULARY MEDICATION (Insulin Aspart U-100 [Novolog Flexpen U-100 Insulin] 100 unit/mL SQ SCH (14:00)
[2024-11-22] MEDS: ACETAMINOPHEN 1,000 MG/100 ML VIAL IV PRN (14:10)
[2024-11-22] MEDS: PROMETHAZINE 12.5 MG/50.5 ML BAG IV PRN (14:10)
[2024-11-22] MEDS: OPTIRAY 320 125ml IV ONE (14:58)
--- NOTE | 2024-11-22 15:08 | CT Scan Report ---
CT SCAN OF THE BRAIN WITHOUT IV CONTRAST CLINICAL HISTORY: Dizziness. Vomiting. Possible stroke. COMPARISON STUDY: None TECHNIQUE: Unenhanced axial CT scan of the brain was performed from the vertex to the skull base. A dose lowering technique was utilized adhering to the principles of ALARA. FINDINGS: Brain parenchyma: This exam is mildly compromised by motion artifact. No acute intracranial hemorrhag e, midline shift or mass effect is present. Hahn-white matter differentiation is preserved. There are no extra-axial fluid collections. There are no findings to suggest acute dural sinus thrombosis or a cute territorial infarct. Ventricles, sulci, cisterns: There is no hydrocephalus. The basal cisterns are patent. Calvarium: Unremarkable. Sinuses and mastoids: The visualized paranasal sinuses are clear. The mastoid air cells are well pneu matized. Orbits: The bony orbits are grossly intact. IMPRESSION: No acute intracranial findings. Mild motion artifact. ACT 112: Negative or not required by law. Electronically signed by: Edmundo Vences M.D. 11/22/2024 3:07 PM
--- NOTE | 2024-11-22 15:16 | CT Scan Report ---
CT ANGIOGRAPHY OF THE NECK WITH CONTRAST CLINICAL HISTORY: neuro deficit, acute stroke suspected COMPARISON STUDY: No previous studies for comparison. Technique: CT angiography of the carotid and vertebral arteries was obtained using Optiray and 3D rec onstruction on an independent workstation. NASCET criteria was utilized. Automated exposure control was utilized for the study. A dose lowering technique was utilized adhering to the principles of ALA RA. Findings: This exam is mildly compromised given difficulty positioning and motion artifact. Visualize d portions of the lung apices are unremarkable. There are no cervical spine fractures. The bilateral common carotid, cervical internal carotid and vertebral arteries are patent. There is minimal calcifi ed plaque within the proximal right internal carotid artery without stenosis. The right vertebral art tommy is dominant. IMPRESSION: 1. No stenosis or dissection within the bilateral common carotid, cervical internal carotid or verteb ral arteries. 2. Exam mildly compromised by artifact, as described above. ACT 112: Negative or not required by law. Electronically signed by: Edmundo Vences M.D. 11/22/2024 3:14 PM
--- NOTE | 2024-11-22 15:16 | CT Scan Report ---
CT angio head w con CLINICAL HISTORY: neuro deficit, acute stroke suspected. COMPARISON STUDY: Noncontrast head CT earlier today. TECHNIQUE: Unenhanced axial CT scan of the brain is performed. Subsequently, following the IV adminis tration of 115 cc of Optiray, CT angiogram of the brain was performed from the skull base to the vert ex. Images are reviewed in the axial, sagittal, and coronal planes. 3-D MIPS images are created and a ssessed. IV contrast was administered without complication. All measurements were obtained according to NASCET criteria. A dose lowering technique was utilized adhering to the principles of ALARA. CT DOSE: 1671.79 mGy.cm FINDINGS: The distal left vertebral artery is diminutive, anatomic variant. Otherwise the distal inte rnal carotid and vertebral arteries show no significant narrowing or occlusion. Basilar artery is pat ent. The anterior, middle, and posterior cerebral arteries are patent bilaterally. Cerebral venous si nuses opacify normally. IMPRESSION: No significant arterial narrowing or occlusion seen of the brain. ACT 112: Negative or not required by law. The above report was generated using voice recognition software. It may contain grammatical, syntax o r spelling errors. Electronically signed by: Dejuan Lutz M.D. 11/22/2024 3:14 PM
[2024-11-22 15:17] LABS: Albumin Level 4.2 gm/dl (3.4-5.0); Magnesium 1.8 mg/dl (1.7-2.4); Potassium 3.8 mmol/L (3.5-5.1)
[2024-11-22 15:23] LABS: Albumin Globulin Ratio 1.6 (0.9-2); BUN Creatinine Ratio 23.6 (10-20); Creatinine Clr Calc Pharmacy 113.8 ml/min; Globulin 2.7 gm/dl (2.5-4.0); Total Protein 6.9 gm/dl (6.0-8.3)
[2024-11-22 15:28] LABS: Basophils # (auto) 0.06 K/uL (0.00-0.20); Basophils % (auto) 0.3 %; Hematocrit (blood only) 38.2 % (37.0-47.0); Hemoglobin 12.9 g/dl (12.0-16.0); Immature Granulocytes # (auto) 0.08 K/uL (0.01-0.20); Immature Granulocytes % (auto) 0.4 %; Lymphocytes # (auto) 1.38 K/uL (1.20-3.40); Lymphocytes % (auto) 7.1 %; Mean Corpuscular Hgb Conc 33.8 g/dL (32.0-36.0); Mean Platelet Volume 11.3 fL (9.4-12.4); Monocytes # (auto) 0.43 K/uL (0.11-0.59); Monocytes % (auto) 2.2 %; Neutrophils # (auto) 17.42 K/uL (1.40-6.50); Platelet Count 239 K/uL (130-400); RDW Coefficient of Variation 12.6 % (11.5-14.5); RDW Standard Deviation 38.1 fL (36.4-46.3); White Blood Count 19.37 K/ul (4.8-10.8)
--- NOTE | 2024-11-22 15:31 | Pharmacy Report ---
Pharmacy Glycemic Short Note 2 - Date of Service November 22, 2024 - Glycemic Short BSG Results (Last 24 hours): 11/22/24 11/22/24 12:07 14:38 POC Glucose 118 H 135 H OUTPATIENT ANTIDIABETIC REGIMEN: * Unclear * Patient is not able to participate in conversation at this time due to AMS / stroke alert called * reports patient uses an Omnipod at home, which is dissimilar from the medication reconciliation. He reported she may have taken some long-acting insulin this AM prior to surgery, and believes that's likely, although dose unknown. 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 Admitted 11/22 for cardiac cath, recovered in ICU and was back to baseline around 1200, then notable AMS and stroke alert called about 1430. Patient not able to participate in discussion of outpatient diabetes regimen at this time. * BSG's good at this time * Will defer basal insulin for now as family believes she may have taken long- acting insulin this AM. Will however schedule checks q4h to provide correctional insulin if elevated * Prior CHO ratios between 4-8 per diabetes note 2020. However, given unknown regimen currently will order looser ratio but with frequent checks. Patient currently vomiting and unlikely to have significant PO intake for now. PLAN FOR INPATIENT GLYCEMIC CONTROL: * Basal insulin * Hold for now as potentially has basal on board and BSG's are good. Will re-assess tomorrow AM * Bolus insulin * NovoLog per scale q4h * Goal Range: Low 120 mg/dL - High 150 mg/dL * Correction Factor: 30 mg/dL/unit * Nutritional / Prandial insulin per carb ratio of 1 unit per 10 grams CHO consumed
[2024-11-22 15:56] LABS: Partial Thromboplastin Time 26 Seconds (21-31); Prothrombin Time 11.3 Seconds (9.0-12.0)
[2024-11-22] MEDS: ACETAMINOPHEN 1000 MG/100 ML IV IV ONE (16:11)
[2024-11-22] MEDS ORDERED: Continuous Glucose Monitor SCH (16:30)
[2024-11-22] MEDS ORDERED: ICU Protocol for HYPERglycemia SCH (16:30)
[2024-11-22] MEDS: levETIRAcetam 500 MG/5 ML VIAL IV STA (16:33)
[2024-11-22] MEDS: levETIRAcetam 500 MG/5 ML VIAL IV SCH (16:33)
--- NOTE | 2024-11-22 16:38 | Critical Care Consultation ---
Date of Consultation November 22, 2024 Assessment & Plan (1) Acute encephalopathy: (2) Coronary artery disease: (3) Neuropathy, diabetic: Plan 49-year-old female with a history of gastric bypass surgery in 2012, insulin- dependent diabetes mellitus and hyperlipidemia who presented to the hospital for routine left heart catheterization and was found to have multivessel coronary artery disease requiring PCI to the LAD and RCA. Post procedurally she developed altered mental status associated with nausea and vomiting. Stat CT head and neck did not reveal any acute pathology. Neurologic: Mental status improving. Possible side effect of promethazine. Continue clinical monitoring. Seizure precautions. Empiric Keppra initiated. Stat CT head and neck without acute pathology. Stroke neurology evaluated the patient and did not feel that systemic thrombolytic were required. Pulmonary: Patient without any significant oxygen requirements at this time. Will obtain chest x-ray as she was complaining of chest pain earlier to rule out findings such as pneumomediastinum or pneumothorax. Cardiovascular: Patient status post PCI to the mid LAD and mid RCA areas. Status post echo. Continue monitoring on telemetry. Appreciate cardiology input. Continue dual antiplatelets and high-dose statin therapy. Deferred BP management to cardiology. Gastrointestinal: N.p.o. for the time being. LFTs unremarkable. If patient with further nausea and vomiting, will have low threshold for checking lipase and obtaining a CT abdomen pelvis. Renal: Patient with mild acidosis likely related to nausea and vomiting. Will initiate LR at 125 mL/h. Infectious disease: No evidence of infectious etiology at this time. Hematologic: Hemoglobin and platelet count stable. PTT and INR normal. Endocrine: Patient chronically on insulin pump. Glycemic consult placed VTE prophylaxis: SCDs CODE STATUS: Full Family at bedside: updated at bedside Disposition: ICU. Care was coordinated with the bedside nurse, cemetery counselor and telestroke physician. I have personally spent 44 minutes of critical care time in the direct management of this patient. This is a life/limb threatening event. This includes time spent evaluating patient, direct bedside care, chart review, placing orders, interpretation of diagnostic studies, discussion with consultants, patient, and family members, as well as other required patient management activities. This time is exclusive of all separately billable procedures, and teaching time and separate from and in addition to any other critical care service time. Thank you for allowing us to participate in the care of this patient. History of Present Illness Reason for Consultation: Altered mental status post PCI Attending Physician: Quintin Collins MD History of Present Illness 49-year-old female with a history of insulin-dependent diabetes mellitus on an insulin pump, B12 deficiency, history of bariatric surgery in 2012, history of help syndrome and hypercholesterolemia who presented to the hospital today status post cardiac catheterization. She was being evaluated by her outpatient cemetery counselor who referred her to interventional cardiology for a diagnostic left heart catheterization. Diagnostic left heart catheterization today revealed severe multivessel coronary artery disease with 80 to 90% mid LAD stenosis and 100% occluded mid RCA with [id number] collaterals. PCI was performed in the mid LAD with a single drug-eluting stent in the mid RCA with a single drug- eluting stent. She was loaded with Plavix and transferred to the progressive care unit. While being evaluated by the yard pilot post procedurally, she was profoundly altered and nauseous. She began vomiting and retching. Last known well time of approximately 12 PM. Code stroke was called and she was urgently sent for CT head imaging and neck imaging which was unremarkable. Telestroke neurology evaluated the patient and felt that her symptoms were not consistent with stroke at this time and recommended starting her on empiric Keppra. Notably, during the left heart catheterization she received Versed and fentanyl. Post procedurally she received Phenergan. Allergies Allergy/AdvReac Type Severity Reaction Status Date / Time erythromycin base Allergy Unknown hives Verified 11/22/24 07:36 Home Medications Medication Instructions Recorded Confirmed Type blood sugar diagnostic (Accu-Chek #50 ea 07/24/20 12/16/23 Rx Guide test strips) blood-glucose meter (Accu-Chek #1 ea 07/24/20 12/16/23 Rx Guide Glucose Meter) insulin aspart U-100 100 unit/mL 25 unit (0.25 mL) subcut TID #8 11/10/20 11/22/24 Rx (3 mL) subcutaneous pen (Novolog Boxes FlexPen U-100 Insulin aspart) blood-glucose sensor (Dexcom G6 #3 ea 08/06/21 12/16/23 Rx Sensor device) blood-glucose transmitter (Dexcom #1 ea 08/06/21 12/16/23 Rx G6 Transmitter device) rosuvastatin 5 mg tablet 5 mg PO DAILY 04/14/23 11/22/24 History celecoxib 200 mg capsule (Celebrex) 200 mg PO DAILY #90 caps 07/19/24 11/22/24 Rx aspirin 81 mg tablet,delayed 81 mg PO DAILY 11/22/24 11/22/24 History release cyanocobalamin (vitamin B-12) 1,000 mcg subcut DAILY 11/22/24 11/22/24 History 1,000 mcg/mL injection solution escitalopram oxalate 5 mg tablet 5 mg PO DAILY 11/22/24 11/22/24 History insulin glargine 100 unit/mL (3 50 unit subcut QAM 11/22/24 11/22/24 History mL) subcutaneous pen (Basaglar KwikPen U-100 Insulin) semaglutide 2 mg/dose (8 mg/3 mL) 2 mg subcut Q7D 11/22/24 11/22/24 History subcutaneous pen injector Patient History Medical History (Updated 11/22/24 @ 16:31 by Jaxson Asher MD) Electrolyte imbalance High anion gap metabolic acidosis (06/21/19) DKA (diabetic ketoacidoses) (06/21/19) Surgical History (Updated 06/03/20 @ 12:40 by Zohaib Waller MD) History of x 2 Family History (Updated 04/14/23 @ 13:58 by Ton Hillman DO) Grandmother (Maternal) Diabetes Father Coronary heart disease Stroke Hx of CABG Mother Levi Ruby infection Sister Hypothyroidism Other Sjogren's disease Social History (Updated 02/06/21 @ 12:07 by Marla Sofia LPN) Smoking Status: Never smoker Second Hand Exposure: No; Do You Dip or Chew Tobacco: No; Hx Alcohol Use: Yes Hx Substance Use: Yes Preferred Language: Nepali Communication Ability: Effective Center Receptionist Required: No Beliefs That Will Affect Care: None marital status: Current Living Situation: Spouse current occupational status: employed Feels Safe at Home: Yes Safety Concerns: Feels Safe At This Time Sunscreen Use: Yes Assistive Devices: None Review of Systems Review of Systems: All systems reviewed & are unremarkable except as noted in HPI & below Physical Exam Physical Exam: Constitutional: Patient appears to be of their stated age. Patient in mild distress. Eyes: Pupils are equal round and reactive to light. Conjunctivae are normal. Anicteric sclera. Ears nose, mouth and throat: Mallampati class 2. Normal posterior oropharynx. Uvula is midline. Neck: Trachea is midline. Visual inspection is normal. Respiratory: Clear to auscultation bilaterally. No use of accessory muscles. No significant clubbing noted. Cardiovascular: Regular rate and rhythm. No murmurs. No edema. Gastrointestinal: Normal bowel sounds, soft, nontender and nondistended. No hepatosplenomegaly noted. Musculoskeletal: No cyanosis. Patient is able to move all extremities. Strength is 5 out of 5 in the upper and lower extremities. Skin: No rashes, warm dry and intact. Neurologic: Lethargic, but easily arousable. Nonfocal exam. Speech is mildly garbled. Psychiatric: Difficult to assess but anxious appearing. Results & Data Results & Data Vital Signs (Past 12 Hours) Vital Signs Temp Pulse Pulse Resp BP BP Pulse Ox 11/22/24 13:31 99 H 138/91 11/22/24 13:13 94 H 151/91 H 11/22/24 12:51 36.7 C 18 11/22/24 12:51 94 H 134/107 H 11/22/24 11:45 89 16 120/88 98 11/22/24 11:30 94 H 16 117/93 98 11/22/24 11:15 94 H 16 117/93 98 11/22/24 11:00 94 H 16 105/91 98 11/22/24 07:23 36.8 C 81 16 125/85 99 O2 Del Method 11/22/24 13:31 11/22/24 13:13 11/22/24 12:51 Room Air 11/22/24 12:51 11/22/24 11:45 Room Air 11/22/24 11:30 Room Air 11/22/24 11:15 Room Air 11/22/24 11:00 Room Air 11/22/24 07:23 Room Air Coding Level of Care Code 67994 CRITICAL CARE 1ST 30-74M Diagnoses Acute encephalopathy G93.40 Coronary artery disease I25.10 Neuropathy, diabetic E11.40
--- NOTE | 2024-11-22 16:39 | XCELERA ---
[id number]
[2024-11-22] MEDS: LACTATED RINGER'S 1,000 ML IV SCH (16:49)
[2024-11-22] MEDS: INSULIN ASPART PER UNIT CHARGE SC SCH (16:54)
[2024-11-22 18:05] LABS: Calcium 9.1 mg/dl (8.6-10.3)
[2024-11-22 18:10] LABS: Creatinine Clr Calc Pharmacy 104.3 ml/min
--- NOTE | 2024-11-22 18:30 | XRay Report ---
EXAM: XR chest 1V portable CLINICAL HISTORY: Nausea and vomiting TECHNIQUE: An X-ray image of the chest is obtained in AP projection. COMPARISON: comparison made with 06.21.2019 study. FINDINGS: Pulmonary Parenchyma: prominent bilateral bronchovascular lung markings, otherwise; Lungs are clear bilaterally. No evidence of consolidation, collapse, or focal opacities. No pulmonary nodules are identified. No evidence of pleural effusion or pleural thickening. Heart and Mediastinum: Heart size and shape are normal. No mediastinal widening or masses. No hilar or mediastinal lymphadenopathy. Bony Thorax: Bony thorax appears intact without fractures or deformities. Soft Tissues: Soft tissues overlying the chest wall are unremarkable. Cardiac monitoring electrodes. IMPRESSION: 1. No acute cardiopulmonary abnormalities are identified. 2. No changes on the interval. Electronically signed by Joel Nguyễn 11-22-2024 6:29 PM
[2024-11-22 19:01] LABS: Base Excess VBG -11.4 mEq/L; HCO3 VBG 13 mmol/L; Oxygen Saturation VBG 91.1 %; PCO2 VBG 25 mmHg (38-50); PO2 VBG 60 mmHg; pH VBG 7.32 (7.36-7.41)
[2024-11-22] MEDS: LACTATED RINGER'S 500 ML IV ONE ×2 (20:07→20:08)
[2024-11-22 21:32] LABS: Appearance Urine Clear (Clear); Bacteria Urine Automated 4+ (None Seen); Bilirubin Urine Negative (Negative); Blood Urine Negative (Negative); Cast Urine Automated 0-2 /lpf (0-2); Color Urine Yellow; Epithelial Cell Urine Auto 0-2 /hpf (0-2); Glucose Urine UA 3+ (Negative); Ketones Urine 3+ (Negative); Leukocyte Esterase Urine Negative (Negative); Nitrite Urine Positive (Negative); Protein Urine Negative (Negative); RBC Urine Automated 0-2 /hpf (0-2); Specific Gravity Urine > 1.045 (1.000-1.030); Urobilinogen Urine Negative (Negative); WBC Urine Automated 0-5 /hpf (0-5)
[2024-11-22 22:10] LABS: BUN Creatinine Ratio 21.9 (10-20); Creatinine Clr Calc Pharmacy 97.8 ml/min; Potassium 4.4 mmol/L (3.5-5.1)
--- NOTE | 2024-11-22 22:36 | Communication Note ---
Date of Service: November 22, 2024 S: Patient remained tachycardic and lethargic, however lethargy markedly improved at this time- labs checked at shift change was noted for decreasing bicarb and elevated lactate. She was given total of 1L of crystalloids and labs rechecked for concern of possible euglycemic DKA as she was recently started on Jardiance and remains on Ozempic, as well as lipase for poss. pancreatitis. O: HR 110-120, BP 112/68, RR 19-22, SPO2 97% on RA and T- 36.7 - lactate cleared to 2.0, HCO3 improved to 17, PH- 7.3, and AG decreased to 13 (18), lipase 8 and without abdominal pain - UA was noted for Spec grav >1.45 and ketones of 3+ A/P: hypovolemia likely secondary to nausea and vomiting and being NPO through the evening and today- She has responded to crystalloid boluses and will provide her SQ insulin based on her sliding scale. Her mentation is also markedly improved at this time so will increase her IVF and re-evaluate with am labs. Mt CURRAN (ACNP-)
[2024-11-23 05:27] LABS: Basophils # (auto) 0.04 K/uL (0.00-0.20); Basophils % (auto) 0.2 %; Hematocrit (blood only) 34.9 % (37.0-47.0); Hemoglobin 11.4 g/dl (12.0-16.0); Immature Granulocytes % (auto) 0.5 %; Lymphocytes # (auto) 2.08 K/uL (1.20-3.40); Lymphocytes % (auto) 10.9 %; Mean Corpuscular Hemoglobin 27.8 pg (25.0-34.0); Mean Corpuscular Hgb Conc 32.7 g/dL (32.0-36.0); Mean Corpuscular Volume 85.1 fL (80.0-100.0); Mean Platelet Volume 11.3 fL (9.4-12.4); Monocytes # (auto) 1.05 K/uL (0.11-0.59); Monocytes % (auto) 5.5 %; Neutrophils # (auto) 15.76 K/uL (1.40-6.50); Neutrophils % (auto) 82.9 %; Platelet Count 254 K/uL (130-400); RDW Coefficient of Variation 12.7 % (11.5-14.5); RDW Standard Deviation 39.1 fL (36.4-46.3); White Blood Count 19.03 K/ul (4.8-10.8)
[2024-11-23 05:42] LABS: BUN Creatinine Ratio 23.7 (10-20); Calcium 8.7 mg/dl (8.6-10.3); Creatinine Clr Calc Pharmacy 82.3 ml/min; Magnesium 1.9 mg/dl (1.7-2.4); Phosphorus 5.8 mg/dl (2.5-4.9); Potassium 4.8 mmol/L (3.5-5.1)
[2024-11-23] MEDS: ACETAMINOPHEN 1,000 MG/100 ML VIAL IV STA (06:16)
[2024-11-23] MEDS: SODIUM CHLORIDE 0.9% 1,000 ML IV ONE (07:32)
--- NOTE | 2024-11-23 07:57 | XRay Report ---
EXAM: XR chest 1V portable CLINICAL HISTORY: Evaluate for aspiration. TECHNIQUE: An X-ray image of the chest is obtained in AP projection. COMPARISON: Study dated 11/22/2024. FINDINGS: Pulmonary Parenchyma: No evidence of consolidation, collapse, or focal opacities. No pulmonary nodules are identified. No evidence of pleural effusion or pleural thickening. Heart and Mediastinum: Heart size and shape are normal. No mediastinal widening or masses. No hilar or mediastinal lymphadenopathy. Bony Thorax: The bony thorax appears intact without fractures or deformities. Soft Tissues: Soft tissues overlying the chest wall are unremarkable. IMPRESSION: 1. No acute cardiopulmonary abnormalities are identified. 2. No interval changes Electronically signed by Joel Nguyễn 11-23-2024 07:56 AM
[2024-11-23] MEDS: ROSUVASTATIN CALCIUM 20 MG TAB PO SCH (08:20)
[2024-11-23] MEDS: ESCITALOPRAM OXALATE 10 MG TAB PO SCH (08:20)
[2024-11-23] MEDS: ASPIRIN 81 MG ECTAB PO SCH (08:20)
[2024-11-23] MEDS: CLOPIDOGREL BISULFATE 75 MG TAB PO SCH (08:22)
[2024-11-23 09:00] LABS: Base Excess VBG -13.4 mEq/L; HCO3 VBG 13 mmol/L; Oxygen Saturation VBG < 60.0 %; PCO2 VBG 32 mmHg (38-50); PO2 VBG 30 mmHg; pH VBG 7.22 (7.36-7.41)
[2024-11-23] MEDS ORDERED: NON-FORMULARY MEDICATION (Insulin Glargine [Basaglar Kwikpen U-100 Insulin] 100 unit/mL (3 SQ SCH (09:00)
--- NOTE | 2024-11-23 09:02 | Neurology Consultation ---
Date of Consultation November 23, 2024 Assessment & Plan (1) Acute encephalopathy: History of Present Illness Attending Physician: Quintin Collins MD History of Present Illness S: this morning back to baseline, fully oriented. no further confusion. CT head negative. pt doing well. chart reviewed. ICU admission Note: 49-year-old female with a history of insulin-dependent diabetes mellitus on an insulin pump, B12 deficiency, history of bariatric surgery in 2012, history of help syndrome and hypercholesterolemia who presented to the hospital today status post cardiac catheterization. She was being evaluated by her outpatient inspector plating who referred her to interventional cardiology for a diagnostic left heart catheterization. Diagnostic left heart catheterization today revealed severe multivessel coronary artery disease with 80 to 90% mid LAD stenosis and 100% occluded mid RCA with [id number] collaterals. PCI was performed in the mid LAD with a single drug-eluting stent in the mid RCA with a single drug-eluting stent. She was loaded with Plavix and transferred to the progressive care unit. While being evaluated by the board hammer operator post procedurally, she was profoundly altered and nauseous. She began vomiting and retching. Last known well time of approximately 12 PM. Code stroke was called and she was urgently sent for CT head imaging and neck imaging which was unremarkable. Telestroke neurology evaluated the patient and felt that her symptoms were not consistent with stroke at this time and recommended starting her on empiric Keppra. Notably, during the left heart catheterization she received Versed and fentanyl. Post procedurally she received Phenergan. Allergies Allergy/AdvReac Type Severity Reaction Status Date / Time erythromycin base Allergy Unknown hives Verified 11/22/24 07:36 Home Medications Medication Instructions Recorded Confirmed Type blood sugar diagnostic (Accu-Chek #50 ea 07/24/20 12/16/23 Rx Guide test strips) blood-glucose meter (Accu-Chek #1 ea 07/24/20 12/16/23 Rx Guide Glucose Meter) insulin aspart U-100 100 unit/mL 25 unit (0.25 mL) subcut TID #8 11/10/20 11/22/24 Rx (3 mL) subcutaneous pen (Novolog Boxes FlexPen U-100 Insulin aspart) blood-glucose sensor (Dexcom G6 #3 ea 08/06/21 12/16/23 Rx Sensor device) blood-glucose transmitter (Dexcom #1 ea 08/06/21 12/16/23 Rx G6 Transmitter device) rosuvastatin 5 mg tablet 5 mg PO DAILY 04/14/23 11/22/24 History celecoxib 200 mg capsule (Celebrex) 200 mg PO DAILY #90 caps 07/19/24 11/22/24 Rx aspirin 81 mg tablet,delayed 81 mg PO DAILY 11/22/24 11/22/24 History release cyanocobalamin (vitamin B-12) 1,000 mcg subcut DAILY 11/22/24 11/22/24 History 1,000 mcg/mL injection solution escitalopram oxalate 5 mg tablet 5 mg PO DAILY 11/22/24 11/22/24 History insulin glargine 100 unit/mL (3 50 unit subcut QAM 11/22/24 11/22/24 History mL) subcutaneous pen (Basaglar KwikPen U-100 Insulin) semaglutide 2 mg/dose (8 mg/3 mL) 2 mg subcut Q7D 11/22/24 11/22/24 History subcutaneous pen injector Patient History Medical History (Updated 11/22/24 @ 16:31 by Jaxson Asher MD) Electrolyte imbalance High anion gap metabolic acidosis (06/21/19) DKA (diabetic ketoacidoses) (06/21/19) Surgical History (Updated 06/03/20 @ 12:40 by Zohaib Waller MD) History of x 2 Family History (Updated 04/14/23 @ 13:58 by Ton Hillman DO) Grandmother (Maternal) Diabetes Father Coronary heart disease Stroke Hx of CABG Mother Levi Ruby infection Sister Hypothyroidism Other Sjogren's disease Social History (Updated 02/06/21 @ 12:07 by Marla Sofia LPN) Smoking Status: Never smoker Second Hand Exposure: No; Do You Dip or Chew Tobacco: No; Hx Alcohol Use: Yes Hx Substance Use: Yes Preferred Language: Spanish Communication Ability: Effective Manager Of Finance Required: No Beliefs That Will Affect Care: None marital status: Current Living Situation: Spouse current occupational status: employed Feels Safe at Home: Yes Safety Concerns: Feels Safe At This Time Sunscreen Use: Yes Assistive Devices: None Exam (Neuro) Physical Exam: HEENT: normocephalic grossly Neuro: Mental: AOx4, fluent speech, normal comprehension, no apraxia, no neglect CN: PERRL, Full EOM, symmetric face, Motor: No abnormal movements, moves all limbs well. Coord: intact Impression: 49 yo female with resolved transient confusion in setting of cardiac cath and sedation. Likely med side effect along with metabolic disorder (e.g. DKA). normal neuro exam. Recommendations: stop keppra. no further work up needed from neurology continue metabolic monitoring and care. will sign off. Chart reviewed I have spent more than 50% educating patient about potential diagnosis and neurological evaluation and coordinating care with patient's treatment team. Total time spent (including chart review and coordination of care): 35 min (this includes chart review). Results & Data Vital Signs (Past 12 Hours) Vital Signs Temp Pulse Pulse Resp BP Pulse Ox O2 Del Method 11/23/24 07:00 96 Room Air 11/23/24 06:12 105 H 17 95/53 L 97 Room Air 11/23/24 06:00 104 H 18 97 Room Air 11/23/24 05:00 36.8 C 105 H 18 97 Room Air 11/23/24 04:42 104 H 18 96/56 L 97 Room Air 11/23/24 04:26 114 H 17 103/55 L 96 Room Air 11/23/24 04:00 106 H 17 98 Room Air 11/23/24 03:42 106 H 18 96/56 L 97 Room Air 11/23/24 03:12 105 H 18 91/43 L 98 Room Air 11/23/24 03:00 107 H 17 97 Room Air 11/23/24 02:42 102 H 17 97/60 L 98 Room Air 11/23/24 02:12 108 H 18 98/63 L 96 Room Air 11/23/24 02:00 36.7 C 106 H 17 98 Room Air 11/23/24 01:42 105 H 18 103/50 L 96 Room Air 11/23/24 01:12 105 H 16 91/59 L 96 Room Air 11/23/24 01:12 110 H 15 90/59 L 96 Room Air 11/23/24 01:00 110 H 19 97 Room Air 11/23/24 00:42 109 H 20 106/48 L 96 Room Air 11/23/24 00:12 108 H 18 94/55 L 96 Room Air 11/23/24 00:00 18 96 Room Air 11/23/24 00:00 112 H 11/22/24 23:42 115 H 19 96/55 L 97 Room Air 11/22/24 23:18 112 H 11/22/24 23:00 36.7 C 119 H 20 97 Room Air 11/22/24 22:54 115 H 19 94/52 L 96 Room Air 11/22/24 22:43 116 H 19 94/52 L 95 Room Air 11/22/24 22:12 119 H 19 111/71 95 Room Air 11/22/24 22:00 19 97 Room Air 11/22/24 21:42 106/71 11/22/24 21:12 109/67 11/22/24 21:00 36.7 C 19 95 Room Air PG Care Time/CCT Total # of Minutes Spent Total Time Spent with Patient: Total time spent is greater than 50% in coordination of care (as documented) at patient's floor/unit and/or counseling patient: Coding Level of Care Code 66222 IN/OBS CONSULT LVL 2,35M Diagnoses Acute encephalopathy G93.40
--- NOTE | 2024-11-23 09:19 | Critical Care Progress Note ---
Date of Service November 23, 2024 Assessment & Plan (1) DKA (diabetic ketoacidoses): (2) Acute encephalopathy: (3) Coronary artery disease: (4) Neuropathy, diabetic: Plan 49-year-old female with a history of gastric bypass surgery in 2012, insulin- dependent diabetes mellitus and hyperlipidemia who presented to the hospital for routine left heart catheterization and was found to have multivessel coronary artery disease requiring PCI to the LAD and RCA. Post procedurally she dev eloped altered mental status associated with nausea and vomiting. Stat CT head and neck did not reveal any acute pathology. Neurologic: Encephalopathy has resolved and she is back to baseline. Phenergan added to her list of "allergies" as an adverse reaction. Pulmonary: Patient without any significant oxygen requirements at this time. Chest x-ray x 2 reviewed by me which is unremarkable. Cardiovascular: Patient status post PCI to the mid LAD and mid RCA areas. Post cath echo unremarkable with an LVEF of 55 to 60%. No pericardial effusion. Continue monitoring on telemetry. Appreciate cardiology input. Continue dual antiplatelets and high-dose statin therapy. Deferred BP management to cardiology. Gastrointestinal: Lipase and LFTs unremarkable. Advance diet as tolerated. Renal: Continue IV fluid hydration. Repeat BMP pending. Mild acidemia likely in relation to mild normoglycemic DKA. Infectious disease: Urinalysis with 4+ bacteria and positive leuk esterase. Patient asymptomatic at this time. Will defer treatment. Hematologic: Hemoglobin and platelet count stable. PTT and INR normal. Endocrine: Patient with evidence of mild normoglycemic DKA. Will start DKA protocol. Discussed with pharmacy. VTE prophylaxis: SCDs, start Lovenox 40 mg daily. CODE STATUS: Full Family at bedside: updated at bedside Disposition: Downgrade to pcu. Admission and Anticipated Discharge Date Admission Date: November 22, 2024 Subjective Patient seen examined today. She is much more awake and alert. She was mildly hypotensive and received a liter of crystalloid infusion this morning. She denies any headaches, chest pain, nausea, vomiting or abdominal complaints currently. Review of Systems Review of Systems: All systems reviewed & are unremarkable except as noted in HPI & below Physical Exam Physical Exam: Constitutional: Patient appears to be of their stated age. No apparent distress. Eyes: Pupils are equal round and reactive to light. Conjunctivae are normal. Anicteric sclera. Ears nose, mouth and throat: Mallampati class 2. Normal posterior oropharynx. Uvula is midline. Neck: Trachea is midline. Visual inspection is normal. Respiratory: Clear to auscultation bilaterally. No use of accessory muscles. No significant clubbing noted. Cardiovascular: Regular rate and rhythm. No murmurs. No edema. Gastrointestinal: Normal bowel sounds, soft, nontender and nondistended. No hepatosplenomegaly noted. Musculoskeletal: No cyanosis. Patient is able to move all extremities. Strength is 5 out of 5 in the upper and lower extremities. Skin: No rashes, warm dry and intact. Neurologic: Nonfocal exam. Psychiatric: Alert and oriented x 3 with normal mood and affect. Results & Data Results & Data Vital Signs (Past 12 Hours) Vital Signs Temp Pulse Pulse Resp BP Pulse Ox O2 Del Method 11/23/24 07:00 96 Room Air 11/23/24 06:12 105 H 17 95/53 L 97 Room Air 11/23/24 06:00 104 H 18 97 Room Air 11/23/24 05:00 36.8 C 105 H 18 97 Room Air 11/23/24 04:42 104 H 18 96/56 L 97 Room Air 11/23/24 04:26 114 H 17 103/55 L 96 Room Air 11/23/24 04:00 106 H 17 98 Room Air 11/23/24 03:42 106 H 18 96/56 L 97 Room Air 11/23/24 03:12 105 H 18 91/43 L 98 Room Air 11/23/24 03:00 107 H 17 97 Room Air 11/23/24 02:42 102 H 17 97/60 L 98 Room Air 11/23/24 02:12 108 H 18 98/63 L 96 Room Air 11/23/24 02:00 36.7 C 106 H 17 98 Room Air 11/23/24 01:42 105 H 18 103/50 L 96 Room Air 11/23/24 01:12 105 H 16 91/59 L 96 Room Air 11/23/24 01:12 110 H 15 90/59 L 96 Room Air 11/23/24 01:00 110 H 19 97 Room Air 11/23/24 00:42 109 H 20 106/48 L 96 Room Air 11/23/24 00:12 108 H 18 94/55 L 96 Room Air 11/23/24 00:00 18 96 Room Air 11/23/24 00:00 112 H 11/22/24 23:42 115 H 19 96/55 L 97 Room Air 11/22/24 23:18 112 H 11/22/24 23:00 36.7 C 119 H 20 97 Room Air 11/22/24 22:54 115 H 19 94/52 L 96 Room Air 11/22/24 22:43 116 H 19 94/52 L 95 Room Air 11/22/24 22:12 119 H 19 111/71 95 Room Air 11/22/24 22:00 19 97 Room Air 11/22/24 21:42 106/71 Coding Level of Care Code 00354 SUB INP/OBS CARE 3/50MIN Diagnoses DKA (diabetic ketoacidoses) E10.10 Diabetes mellitus complication detail: without coma Diabetes mellitus type: type 1 Acute encephalopathy G93.40 Coronary artery disease I25.10 Neuropathy, diabetic E11.40 (1) DKA (diabetic ketoacidoses) Diabetes mellitus complication detail: without coma Diabetes mellitus type: type 1 Qualified Code(s): E10.10 - Type 1 diabetes mellitus with ketoacidosis without coma
[2024-11-23 09:22] LABS: Calcium 8.4 mg/dl (8.6-10.3); Creatinine Clr Calc Pharmacy 89.3 ml/min; Potassium 4.6 mmol/L (3.5-5.1)
[2024-11-23] MEDS ORDERED: STAT IV Infusion **Titration per Protocol STA (09:42)
[2024-11-23] MEDS ORDERED: D5W AND 1/2NSS 1,000 ML IV SCH (09:45)
--- NOTE | 2024-11-23 10:17 | Hospitalist Consultation ---
Date of Consultation November 23, 2024 Assessment & Plan (1) Diabetes mellitus type 1.5: Anahy is a 49-year-old female who presented for ischemic CAD evaluation who subsequently had 2 stents placed, following cath course was complicated by an episode of metabolic encephalopathy suspected to be due to either euglycemic DKA versus toxic encephalopathy due to Phenergan. On follow-up she is found to be in euglycemic DKA at risk due to combination GLP-1/SGLT2 use and a EMIR. AMS Suspected Metabolic Encephalopathy vs Drug Reaction -Resolved Occurred shortly after receiving Phenergan for postprocedural nausea, also received midazolam/fentanyl procedurally. Suspect most likely etiology is toxic encephalopathy -UA is potentially infected appearing however patient is completely back to normal baseline, has had no polyuria/dysuria/abdominal pain/flank pain/fevers. She is adamant she has no symptoms of UTI. This is consistent with asymptomatic bacteriuria and will defer treatment unless she becomes febrile or clinically deteriorates. She does have a leukocytosis with some nausea/vomiting which has no left shift, which may be demargination. If rising or granulocytic left shift is seen then will reevaluate for/benefits of treatment at that time Due to confusion was activated stroke alert. CTAhead/neck with no acute abnormalities. No ongoing strokelike deficits. Was placed on Keppra per telestroke recommendations at the time and pending additional workup. No prior seizure history. Suspect alternative etiology, no evidence of ongoing seizure activity. Discontinue Keppra. Euglycemic DKA - Hx type 1.5DM on semaglutide, glargine 16u qAm, jardiance HRBP - At risk of 2/2 semaglutide + jardiance use - VBG 7.22/32/30/13. Lactate 3.1 on 11/22, subsequently normalized - insulin gtt started 11/23 - BMP/Mg/Ph/VBG q4h. Continue gtt until AG closed, ph >7.30, bicarb > 18 - Maintain BSG 140-180 until gap/electrolyte abnormalities resolve Normotensive, sinus tachycardia at bedside. Appears mild contracted with dry/tacky mucous membranes patient is thirsty. Additional 500 cc bolus of LR ordered. Type 1.5 DM Management of glycemic DKA as above Typically takes 16 units of long-acting Lantus in addition to insulin pump at 1.5 units/h with bolus dosing as needed. Typical 24-hour insulin use around 50 to 60 units/day Continue insulin GTT as above Once euglycemic DKA is resolved discontinue either GLP-1 or SGLT2 as these have a synergistic effect for inducing euglycemic DKA. SGLT2I with secondary cardiac benefit however is also with higher risk of exacerbating euglycemic DKA. Suggest continuing GLP-1 and discontinuing Jardiance Multivessel CAD s/p PCI Sinus tachycardia at bedside. Normotensive at time bedside assessment Echo with EF 55 to 60%. No wall motion abnormalities. No pericardial effusion No ongoing chest pain at time of assessment S/p cardiac catheterization. S/p 2 SHARDA to LAD/RCA. 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 Post procedurally she had altered mental status with nausea and vomiting, CThead/neck were within normal limits. Has been downgraded to PCU Per consultatntsign out: Type 1.5DM on insulin pump. Follows with Dr. Villarreal. Had been ahving atypical symptoms. Had a diagnostic cath --> multivessel CAD. 2x SHARDA were placed to LAD/RCA. Post procedure had vomiting progressive confusion and was activated as a stroke alert. Imaging was unremarkable. Gradually improved afterwards. ?Normoglycemic DKA. Increased anion gap, +ketones. UA with 4+ baceria/nitrates and no epis but no sx Per Pt: Melva seen at the bedside with resident present. She reports she remembers her procedure yesterday which is very interesting watching the cath on screen, getting nauseous after and receiving Phenergan and then does not remember much until this morning. She reports she feels back to her baseline today. She reports she has had no polyuria, suprapubic pain, flank pain, dysuria or change in voiding. She has had no fevers or chills. She does not feel like she has a UTI and does not feel sick. Denies cold-like symptoms. She was nauseous after procedure yesterday but this has resolved. She has been started on an SGLT2 in addition to her GLP-1. She also takes 16 units of Lantus daily in addition to a insulin pump which runs at 1.45 units/h with bolusing as needed based on her meals. Typical insulin use around 50 to 60 units/day. She has not been in DKA before, she has never had euglycemic DKA before. At time of bedside assessment she denies chest pain, chest pressure, shortness of breath, difficulty breathing. Overall she feels greatly improved and nearly back to normal. She does feel slightly dehydrated and thirsty. She denies headache, weakness. No focal strength or sensory deficits Medical History: Reviewed Medications: Reviewed Surgical History: Reviewed Family history: Reviewed Allergies: Reviewed Social History: Reviewed Code Status: Full Allergies Allergy/AdvReac Type Severity Reaction Status Date / Time erythromycin base Allergy Unknown hives Verified 11/22/24 07:36 promethazine [From Phenergan] AdvReac Severe Confusion Verified 11/23/24 09:15 Home Medications Medication Instructions Recorded Confirmed Type blood sugar diagnostic (Accu-Chek #50 ea 07/24/20 12/16/23 Rx Guide test strips) blood-glucose meter (Accu-Chek #1 ea 07/24/20 12/16/23 Rx Guide Glucose Meter) blood-glucose sensor (Dexcom G6 #3 ea 08/06/21 12/16/23 Rx Sensor device) blood-glucose transmitter (Dexcom #1 ea 08/06/21 12/16/23 Rx G6 Transmitter device) rosuvastatin 5 mg tablet 5 mg PO DAILY 04/14/23 11/22/24 History celecoxib 200 mg capsule (Celebrex) 200 mg PO DAILY #90 caps 07/19/24 11/22/24 Rx aspirin 81 mg tablet,delayed 81 mg PO DAILY 11/22/24 11/22/24 History release cyanocobalamin (vitamin B-12) 1,000 mcg subcut DAILY 11/22/24 11/22/24 History 1,000 mcg/mL injection solution escitalopram oxalate 5 mg tablet 5 mg PO DAILY 11/22/24 11/22/24 History insulin glargine 100 unit/mL (3 16 unit subcut QAM 11/22/24 11/23/24 History mL) subcutaneous pen (Basaglar KwikPen U-100 Insulin) semaglutide 2 mg/dose (8 mg/3 mL) 2 mg subcut Q7D 11/22/24 11/22/24 History subcutaneous pen injector insulin aspart U-100 100 unit/mL 1 sliding scale dose continuous 11/23/24 11/23/24 History subcutaneous solution (Novolog subcutaneous infusion USEASDIRECTD U-100 Insulin aspart) Patient History Medical History (Updated 11/22/24 @ 16:31 by Jaxson Asher MD) Electrolyte imbalance High anion gap metabolic acidosis (06/21/19) DKA (diabetic ketoacidoses) (06/21/19) Surgical History (Updated 06/03/20 @ 12:40 by Zohaib Waller MD) History of x 2 Family History (Updated 04/14/23 @ 13:58 by Ton Hillman DO) Grandmother (Maternal) Diabetes Father Coronary heart disease Stroke Hx of CABG Mother Levi Ruby infection Sister Hypothyroidism Other Sjogren's disease Social History (Updated 02/06/21 @ 12:07 by Marla Sofia LPN) Smoking Status: Never smoker Second Hand Exposure: No; Do You Dip or Chew Tobacco: No; Hx Alcohol Use: Yes Hx Substance Use: Yes Preferred Language: Turkish Communication Ability: Effective Dermatological Surgeon Required: No Beliefs That Will Affect Care: None marital status: Current Living Situation: Spouse current occupational status: employed Feels Safe at Home: Yes Safety Concerns: Feels Safe At This Time Sunscreen Use: Yes Assistive Devices: None Physical Exam Physical Exam: General: A&Ox3. NAD. Cooperative. HEENT: Atraumatic, normocephalic. Hearing grossly intact. Mucous membranes dry/tacky Pulm: CTAB A&P. -wheezes, -rales, -rhonchi. Symmetrical chest rise. No increased work of breathing. No respiratory distress. Cardiac: Regular, tachycardic, -mrg. Radial pulses intact and symmetrical. Abdominal: Nontender, nondistended, soft. BS present. Extremities: Radial access site C/C/I, no hematoma. Pulse intact Results & Data Results & Data Vital Signs (Past 12 Hours) Vital Signs Temp Pulse Pulse Resp BP Pulse Ox Pulse Ox 11/23/24 08:00 11/23/24 08:00 99 11/23/24 08:00 11/23/24 08:00 105 H 11/23/24 07:00 96 11/23/24 06:12 105 H 17 95/53 L 97 11/23/24 06:00 104 H 18 97 11/23/24 05:00 36.8 C 105 H 18 97 11/23/24 04:42 104 H 18 96/56 L 97 11/23/24 04:26 114 H 17 103/55 L 96 11/23/24 04:00 106 H 17 98 11/23/24 03:42 106 H 18 96/56 L 97 11/23/24 03:12 105 H 18 91/43 L 98 11/23/24 03:00 107 H 17 97 11/23/24 02:42 102 H 17 97/60 L 98 11/23/24 02:12 108 H 18 98/63 L 96 11/23/24 02:00 36.7 C 106 H 17 98 11/23/24 01:42 105 H 18 103/50 L 96 11/23/24 01:12 105 H 16 91/59 L 96 11/23/24 01:12 110 H 15 90/59 L 96 11/23/24 01:00 110 H 19 97 11/23/24 00:42 109 H 20 106/48 L 96 11/23/24 00:12 108 H 18 94/55 L 96 11/23/24 00:00 18 96 11/23/24 00:00 112 H 11/22/24 23:42 115 H 19 96/55 L 97 11/22/24 23:18 112 H 11/22/24 23:00 36.7 C 119 H 20 97 11/22/24 22:54 115 H 19 94/52 L 96 11/22/24 22:43 116 H 19 94/52 L 95 O2 Del Method O2 Del Method 11/23/24 08:00 Room Air 11/23/24 08:00 Room Air 11/23/24 08:00 Room Air 11/23/24 08:00 11/23/24 07:00 Room Air 11/23/24 06:12 Room Air 11/23/24 06:00 Room Air 11/23/24 05:00 Room Air 11/23/24 04:42 Room Air 11/23/24 04:26 Room Air 11/23/24 04:00 Room Air 11/23/24 03:42 Room Air 11/23/24 03:12 Room Air 11/23/24 03:00 Room Air 11/23/24 02:42 Room Air 11/23/24 02:12 Room Air 11/23/24 02:00 Room Air 11/23/24 01:42 Room Air 11/23/24 01:12 Room Air 11/23/24 01:12 Room Air 11/23/24 01:00 Room Air 11/23/24 00:42 Room Air 11/23/24 00:12 Room Air 11/23/24 00:00 Room Air 11/23/24 00:00 11/22/24 23:42 Room Air 11/22/24 23:18 11/22/24 23:00 Room Air 11/22/24 22:54 Room Air 11/22/24 22:43 Room Air PG Care Time/CCT Total # of Minutes Spent Total Time Spent with Patient: Total time spent is greater than 50% in coordination of care (as documented) at patient's floor/unit and/or counseling patient: Coding Level of Care Code 33333 IN/OBS CONSULT LVL 5,80M Diagnoses Diabetes mellitus type 1.5 E13.9 History of gastric bypass Z98.84 HLD (hyperlipidemia) E78.5
--- NOTE | 2024-11-23 10:36 | Pharmacy Report ---
Pharmacy Glycemic Short Note 2 - Date of Service November 23, 2024 - Glycemic Short BSG Results (Last 24 hours): 11/22/24 11/22/24 11/22/24 12:07 14:38 14:42 Glucose 154 H POC Glucose 118 H 135 H 11/22/24 11/22/24 11/22/24 16:52 17:30 18:08 Glucose 169 H POC Glucose 173 H 159 H 11/22/24 11/22/24 11/22/24 20:47 21:43 23:03 Glucose 158 H POC Glucose 155 H 137 H 11/23/24 11/23/24 11/23/24 04:01 05:00 07:26 Glucose 131 H POC Glucose 120 H 137 H 11/23/24 08:47 Glucose 142 H POC Glucose OUTPATIENT ANTIDIABETIC REGIMEN: * Semaglutide (Ozempic) * Empagliflozin (new start ~11/14/24) * Basaglar 16 units SC daily * Novolog pump * Continuous infusion 1.45 units/hr from 6465-5952 daily (this is in addition to basal above. Patient reports overnight lows if pump runs from 0000- 0800, hence the break). * Occasional CHO coverage when eating at restaurants w CHO ratio 1 unit per 10 g CHO consumed. Patient reports lower CHO intake when not eating at restaurants. * Occasional correctional insulin when BSG high - unknown correction delivered as patient programs BSG into pump and pump delivers correction. * HbA1c ordered for 11/24/24 ASSESSMENT: 11/23 * Discussed background and plan on ICU rounds as follows: * Possible euglycemic DKA given recent start of empagliflozin. * Anion gap elevated to 15, CO2 low at 15, and pH low at 7.22. * Will initiate home dose of long-acting insulin, start temporary insulin drip to correct acidosis, follow labs for hopeful/possible discontinuation later today after correction of labs. * Mild DKA by labs and patient mentation good therefore will start at less aggressive 0.5 units/kg/hr, no bolus * Will start dextrose-containing infusion to allow for continued insulin administration despite good BSG's * OK to have lower goal range of 140-180 mg/dL since her BSG's were not initially elevated * Patient awake, alert, oriented and pleasant this morning and was able to discuss her outpatient insulin regimen. See update above. * Patient receives basal insulin from two sources - Basaglar and pump that runs from 4537-3943. To avoid overnight lows the patient reports she is prone to, will utilize the insulin drip as some of her basal insulin over the course of the day in substitution of her usual basal rate of 1.45 units/hr on her pump * Will utilize outpatient CHO ratio while on insulin drip * Discussed w Dr. Lau * Ongoing labs q4h ordered. pH still < 7.3 at this time. * Uncovered [place] ice around lunch increased BSG's >300 mg/dL. One time IV insulin bolus ordered. * Anticipate possible transition off drip to basal/bolus later today once pH improves. Will leave out for 2nd shift pharmacist for likely discussion with provider later this evening for transition 11/22 * 49 yo F with latent autoimmune diabetes mellitus in adults (EMIR) per prior review of diabetes note 2020. Admitted 11/22 for cardiac cath, recovered in ICU and was back to baseline around 1200, then notable AMS and stroke alert called about 1430. Patient not able to participate in discussion of outpatient diabetes regimen at this time. * BSG's good at this time * Will defer basal insulin for now as family believes she may have taken long- acting insulin this AM. Will however schedule checks q4h to provide correctional insulin if elevated * Prior CHO ratios between 4-8 per diabetes note 2020. However, given unknown regimen currently will order looser ratio but with frequent checks. Patient currently vomiting and unlikely to have significant PO intake for now. PLAN FOR INPATIENT GLYCEMIC CONTROL: * Basal insulin * Lantus 16 units SC x 1 now then ongoing qAM * Additional "basal" insulin provided by insulin drip for now * Insulin drip. Start @ 3 units/hr and titrate per protocol. Goal range 140- 180 mg/dL. * Dextrose-containing fluid while on drip: currently D5 1/2NS w KCl 20 mEq/L @ 100 mL/hr * Bolus insulin * NovoLog per scale q4h * Goal Range: Low 120 mg/dL - High 150 mg/dL * Correction Factor: 30 mg/dL/unit * Nutritional / Prandial insulin per carb ratio of 1 unit per 10 grams CHO consumed Anticipate following regimen after insulin drip and dextrose-containing fluid discontinued: * Bolus insulin * NovoLog per scale ACHS with TWO overnight checks at 0000,0400 * Goal Range: Low 120 mg/dL - High 150 mg/dL * Correction Factor: 30 mg/dL/unit * Nutritional / Prandial insulin per carb ratio of 1 unit per 10 grams CHO consumed
[2024-11-23] MEDS: D5W AND 1/2NSS + 20MEQ KCL 20 MEQ/1,000 ML BAG IV SCH (10:47)
[2024-11-23] MEDS: INSULIN REGULAR 250 UNITS in SODIUM CHLORIDE 0.9% 247.5 ML IV SCH (10:47)
[2024-11-23] MEDS: ENOXAPARIN INJ 40 MG/0.4 ML SYR SQ ONE (10:48)
[2024-11-23] MEDS: LANTUS PER UNIT CHARGE SC ONE (10:48)
--- NOTE | 2024-11-23 10:50 | Cardiology Progress Note ---
Date of Service November 23, 2024 Assessment & Plan (1) Coronary artery disease: (2) Acute encephalopathy: (3) S/P coronary artery stent placement: Plan Ms. Herring' mentation appears to be normalizing. She is angina free. She is status post PCI to an RCA INFECTION CONTROL COORDINATOR with collaterals coming from the LAD which was also stented. We discussed that she will need to remain on DAPT for a year and that this should not be interrupted during that time without talking to cardiology first. Her echo fortunately did not demonstrate any WMA or reduction in her EF. She is on rosuvastatin. Her LDL should be driven below 55. She is mildly tachycardic likely due to her DKA. Treatment per inte nsivists/hospitalists. Admission and Anticipated Discharge Date Admission Date: November 22, 2024 Subjective Ms. Herring feels better this morning. No chest pain today. Her sister is bedside and notes that she seems back to her normal mentation. She is being treated by the intensivists for euglycemic DKA. ST on the monitor with PVCs. Review of Systems Review of Systems: All systems reviewed & are unremarkable except as noted in HPI & below Physical Exam Constitutional: WD/WN, vitals as above Respiratory: normal respiratory effort, lungs clear to auscultation Cardiovascular: RRR, no murmur, no edema Skin: no rashes, warm and dry Neurologic: moves all extremities and awake Psychiatric: A+Ox3, euthymic affect Results & Data Vital Signs (Past 12 Hours) Vital Signs Temp Pulse Pulse Resp BP Pulse Ox Pulse Ox 11/23/24 08:00 11/23/24 08:00 99 11/23/24 08:00 11/23/24 08:00 105 H 11/23/24 07:00 96 11/23/24 06:12 105 H 17 95/53 L 97 11/23/24 06:00 104 H 18 97 11/23/24 05:00 36.8 C 105 H 18 97 11/23/24 04:42 104 H 18 96/56 L 97 11/23/24 04:26 114 H 17 103/55 L 96 11/23/24 04:00 106 H 17 98 11/23/24 03:42 106 H 18 96/56 L 97 11/23/24 03:12 105 H 18 91/43 L 98 11/23/24 03:00 107 H 17 97 11/23/24 02:42 102 H 17 97/60 L 98 11/23/24 02:12 108 H 18 98/63 L 96 11/23/24 02:00 36.7 C 106 H 17 98 11/23/24 01:42 105 H 18 103/50 L 96 11/23/24 01:12 105 H 16 91/59 L 96 11/23/24 01:12 110 H 15 90/59 L 96 11/23/24 01:00 110 H 19 97 11/23/24 00:42 109 H 20 106/48 L 96 11/23/24 00:12 108 H 18 94/55 L 96 11/23/24 00:00 18 96 11/23/24 00:00 112 H 11/22/24 23:42 115 H 19 96/55 L 97 11/22/24 23:18 112 H 11/22/24 23:00 36.7 C 119 H 20 97 11/22/24 22:54 115 H 19 94/52 L 96 O2 Del Method O2 Del Method 11/23/24 08:00 Room Air 11/23/24 08:00 Room Air 11/23/24 08:00 Room Air 11/23/24 08:00 11/23/24 07:00 Room Air 11/23/24 06:12 Room Air 11/23/24 06:00 Room Air 11/23/24 05:00 Room Air 11/23/24 04:42 Room Air 11/23/24 04:26 Room Air 11/23/24 04:00 Room Air 11/23/24 03:42 Room Air 11/23/24 03:12 Room Air 11/23/24 03:00 Room Air 11/23/24 02:42 Room Air 11/23/24 02:12 Room Air 11/23/24 02:00 Room Air 11/23/24 01:42 Room Air 11/23/24 01:12 Room Air 11/23/24 01:12 Room Air 11/23/24 01:00 Room Air 11/23/24 00:42 Room Air 11/23/24 00:12 Room Air 11/23/24 00:00 Room Air 11/23/24 00:00 11/22/24 23:42 Room Air 11/22/24 23:18 11/22/24 23:00 Room Air 11/22/24 22:54 Room Air
[2024-11-23 10:51] LABS: BUN Creatinine Ratio 24.7 (10-20); Calcium 8.5 mg/dl (8.6-10.3); Creatinine Clr Calc Pharmacy 88.2 ml/min; Magnesium 1.8 mg/dl (1.7-2.4); Phosphorus 5.2 mg/dl (2.5-4.9); Potassium 4.6 mmol/L (3.5-5.1)
--- NOTE | 2024-11-23 12:10 | Electrocardiogram Report ---
Test Reason : Blood Pressure : */* mmHG Vent. Rate : 109 BPM Atrial Rate : 109 BPM P-R Int : 128 ms QRS Dur : 80 ms QT Int : 342 ms P-R-T Axes : 57 60 3 degrees QTcB Int : 460 ms Sinus tachycardia Nonspecific ST abnormality Abnormal ECG When compared with ECG of 22-Nov-2024 11:24, (unconfirmed) ST now depressed in Inferior leads Confirmed by Sharmin Villarreal (Tye) on 11/23/2024 12:10:23 PM Referred By: Sharmin Villarreal Confirmed By: Sharmin Villarreal
--- NOTE | 2024-11-23 12:10 | Electrocardiogram Report ---
Test Reason : Blood Pressure : */* mmHG Vent. Rate : 107 BPM Atrial Rate : 107 BPM P-R Int : 124 ms QRS Dur : 78 ms QT Int : 340 ms P-R-T Axes : 52 60 16 degrees QTcB Int : 453 ms Sinus tachycardia Otherwise normal ECG When compared with ECG of 22-Jun-2019 06:47, No significant change was found Confirmed by Sharmin Villarreal (Tye) on 11/23/2024 12:09:50 PM Referred By: Sharmin Villarreal Confirmed By: Sharmin Villarreal
[2024-11-23] MEDS: INSULIN ASPART PER UNIT CHARGE SC SCH (12:37)
[2024-11-23] MEDS: LACTATED RINGER'S 500 ML IV ONE (12:38)
[2024-11-23 14:31] LABS: BUN Creatinine Ratio 20.7 (10-20); Calcium 8.5 mg/dl (8.6-10.3); Creatinine Clr Calc Pharmacy 76.3 ml/min; Magnesium 1.8 mg/dl (1.7-2.4); Phosphorus 3.5 mg/dl (2.5-4.9); Potassium 4.3 mmol/L (3.5-5.1)
[2024-11-23] MEDS: NovoLIN-R BOLUS FROM BAG IV ONE (15:07)
[2024-11-23 18:43] LABS: BUN Creatinine Ratio 18.4 (10-20); Calcium 8.2 mg/dl (8.6-10.3); Creatinine Clr Calc Pharmacy 82.3 ml/min; Magnesium 1.9 mg/dl (1.7-2.4); Phosphorus 2.5 mg/dl (2.5-4.9); Potassium 4.1 mmol/L (3.5-5.1)
[2024-11-23 22:12] LABS: BUN Creatinine Ratio 18.2 (10-20); Calcium 8.3 mg/dl (8.6-10.3); Creatinine Clr Calc Pharmacy 94.8 ml/min; Magnesium 1.8 mg/dl (1.7-2.4); Phosphorus 2.7 mg/dl (2.5-4.9); Potassium 4.2 mmol/L (3.5-5.1)
[2024-11-23 23:09] VITALS: RESP 18
[2024-11-24 02:47] LABS: BUN Creatinine Ratio 18.6 (10-20); Calcium 8.2 mg/dl (8.6-10.3); Creatinine Clr Calc Pharmacy 106.1 ml/min; Magnesium 1.8 mg/dl (1.7-2.4)
[2024-11-24 03:04] VITALS: TEMP 98.1; O2SAT 97
[2024-11-24 06:17] LABS: Basophils # (auto) 0.04 K/uL (0.00-0.20); Basophils % (auto) 0.5 %; Eosinophils # (auto) 0.09 K/uL (0.00-0.50); Eosinophils % (auto) 1.1 %; Hematocrit (blood only) 31.7 % (37.0-47.0); Hemoglobin 10.8 g/dl (12.0-16.0); Immature Granulocytes # (auto) 0.03 K/uL (0.01-0.20); Immature Granulocytes % (auto) 0.4 %; Lymphocytes # (auto) 2.32 K/uL (1.20-3.40); Lymphocytes % (auto) 28.6 %; Mean Corpuscular Hemoglobin 28.3 pg (25.0-34.0); Mean Corpuscular Hgb Conc 34.1 g/dL (32.0-36.0); Mean Platelet Volume 11.1 fL (9.4-12.4); Monocytes # (auto) 0.55 K/uL (0.11-0.59); Monocytes % (auto) 6.8 %; Neutrophils # (auto) 5.08 K/uL (1.40-6.50); Neutrophils % (auto) 62.6 %; Platelet Count 219 K/uL (130-400); RDW Standard Deviation 38.7 fL (36.4-46.3); Red Blood Count 3.82 M/uL (4.20-5.40); White Blood Count 8.11 K/ul (4.8-10.8)
[2024-11-24 06:37] LABS: BUN Creatinine Ratio 17.7 (10-20); Calcium 8.3 mg/dl (8.6-10.3); Creatinine Clr Calc Pharmacy 100.9 ml/min; Magnesium 1.7 mg/dl (1.7-2.4); Phosphorus 3.1 mg/dl (2.5-4.9); Potassium 3.8 mmol/L (3.5-5.1)
[2024-11-24 07:12] LABS: Estimated Average Glucose 212 mg/dl
[2024-11-24 08:01] VITALS: BP 107/73
[2024-11-24] MEDS: LANTUS PER UNIT CHARGE SC SCH (08:05)
--- NOTE | 2024-11-24 08:09 | Hospitalist Progress Note ---
Date of Service November 24, 2024 Assessment & Plan (1) Diabetes mellitus type 1.5: Plan: Anahy is a 49-year-old female who presented for ischemic CAD evaluation who subsequently had 2 stents placed, following cath course was complicated by an episode of metabolic encephalopathy suspected to be due to either euglycemic DKA versus toxic encephalopathy due to Phenergan. On follow-up she is found to be in euglycemic DKA at risk due to combination GLP-1/SGLT2 use and a EMIR. AMS Suspected Metabolic Encephalopathy with glycemic DKA vs Drug Reaction -Resolved Occurred shortly after receiving Phenergan for postprocedural nausea, also received midazolam/fentanyl procedurally. Suspect most likely etiology is commendation of metabolic encephalopathy plus toxic encephalopathy -UA is potentially infected appearing however patient is completely back to normal baseline, has had no polyuria/dysuria/abdominal pain/flank pain/fevers. She is adamant she has no symptoms of UTI. This is consistent with asymptomatic bacteriuria and will defer treatment unless she becomes febrile or clinically deteriorates. She does have a leukocytosis with some nausea/vomiting which has no left shift, which may be demargination. If rising or granulocytic left shift is seen then will reevaluate for/benefits of treatment at that time Due to confusion was activated stroke alert. CTAhead/neck with no acute abnormalities. No ongoing strokelike deficits. Was placed on Keppra per telestroke recommendations at the time and pending additional workup. No prior seizure history. Suspect alternative etiology, no evidence of ongoing seizure activity. Discontinue Keppra. Euglycemic DKA -Resolved Likely due to combination of GLP-1SGLT2 use Is high risk for recurrence with SGLT2 use either as monotherapy or in combination with GLP-1. Recommend discontinuing this and avoiding in the future. May continue Ozempic which she has tolerated well for a long time Type 1.5 DM Typically takes 16 units of long-acting Lantus in addition to insulin pump at 1.5 units/h with bolus dosing as needed. Typical 24-hour insulin use around 50 to 60 units/day SGLT2 discontinued. Can continue Ozempic as an outpatient She may resume her outpatient Lantus/pump regimen. She will follow-up with endocrinology and has some interest in switching from a combination of basal with insulin pump with an overnight break to a 24-hour pump with adjusted overnight parameters if possible. She will follow-up on this as an outpatient Multivessel CAD s/p PCI Sinus tachycardia at bedside. Normotensive at time bedside assessment Echo with EF 55 to 60%. No wall motion abnormalities. No pericardial effusion No ongoing chest pain at time of assessment S/p cardiac catheterization. S/p 2 SHARDA to LAD/RCA. - Cardiology following Continue aspirin/Plavix/rosuvastatin Will have outpatient follow-up with [facility] cardiology Euglycemic DKA, resolved. She is nontoxic and well-appearing. Hemodynamically stable. Blood sugars are normal today. Agree that is okay for discharge with f ollow-up as outpatient to PCP for routine transitional care appointment, endocrinology for follow-up of type 1.5 DM with euglycemic DKA and consideration of adjustment of her basal+pump regimen to a continuous insulin pump only regimen, and follow-up with cardiology for multivessel CAD (2) History of gastric bypass: (3) HLD (hyperlipidemia): Admission and Anticipated Discharge Date Admission Date: November 22, 2024 Subjective Seen at bedside. Feels very well today. No complaints. Feels at her baseline health. Comfortable discharge home No lightheadedness, dizziness Blood sugars were good this morning. Does note that the diabetic tray she was brought had a very large amount of carbs which she deferred and preferred not to eat, but otherwise had no concerns. Expressed appreciation of care. Will follow-up with endocrinology for recommendations regarding her insulin regimen. Did discuss risks of SGLT2, will defer this in the future. She is okay to continue Ozempic. Physical Exam Physical Exam: General: A&Ox3. NAD. Cooperative. HEENT: Atraumatic, normocephalic. Vision and hearing grossly intact. Pulm: Symmetrical chest rise. No increased work of breathing. No respiratory distress. Cardiac: Radial pulses intact and symmetrical. Results & Data Results & Data Vital Signs (Past 12 Hours) Vital Signs Temp Pulse Pulse Resp BP Pulse Ox O2 Del Method 11/24/24 08:00 36.7 C 85 18 107/73 97 Room Air 11/24/24 03:03 36.7 C 76 18 100/65 97 Room Air 11/23/24 23:08 36.9 C 82 18 100/66 96 Room Air 11/23/24 22:02 87 PG Care Time/CCT Total # of Minutes Spent Total Time Spent with Patient: Total time spent is greater than 50% in coordination of care (as documented) at patient's floor/unit and/or counseling patient: Coding Level of Care Code 28757 SUB INP/OBS CARE 350MIN Diagnoses Diabetes mellitus type 1.5 E13.9 History of gastric bypass Z98.84 HLD (hyperlipidemia) E78.5
[2024-11-24 10:34] VITALS: PULSE 85
--- NOTE | 2024-11-30 16:35 | Discharge Summary ---
Date of Service November 24, 2024 Admission HPI Per Admitting Provider Mrs. Herring is a very pleasant 49-year-old woman with a history of type 1.5 diabetes, gastric bypass in 2012 who was referred for left heart catheterization in the setting of chest pain and ASCVD risk factors. Discharge Data Consultations 11/22/24 14:45 Consult Pharmaceutical Detailer Routine 11/22/24 17:29 Consult Neurology Routine 11/23/24 10:17 Consult Hospitalist Routine Procedures Performed Operation Date: 11/22/24 08:00 Actual Procedures p Cath, Left with Cors and Vent - MD david Yanes Cineradiography w/Routine Exam - MD david Yanes IVUS Coronary Single Vessel - MD david Yanes Drug Eluting Stent SGl Vessel - Quintin Collins MD Diabetes Follow Up Diabetes Follow Up: Diabetes Follow-up Needed for HgbA1c >9% Hospital Course (1) Coronary artery disease: Patient underwent cardiac catheterization via right radial artery and was found to have an 80 to 90% mid LAD stenosis at takeoff of D2 as well as 100% occluded mid RCA with [id number] collaterals. She underwent successful PCI of her mid LAD with single drug-eluting stent (3.0 x 23 mm Xience; postdilated with 3.5 NC). Also had successful PCI of mid RCA occlusion with single drug-eluting stent (4.0 x 28 mm Xience; postdilated with 4.5 NC). Soon after procedure developed intractable nausea/vomiting that persisted despite antiemetics. Several hours post procedure, soon after receiving Phenergan, she became increasingly confused, lethargic. Stroke alert was activated. Head CT, head and neck CTA were unremarkable. Telestroke consultation from [facility] initially recommended Keppra which was later discontinued. Repeat echo showed preserved LV function with no pericardial effusion. Repeat labs revealed anion gap metabolic acidosis and eventually diagnosed with euglycemic DKA. She was treated in the ICU with aggressive IV fluids and eventual insulin drip. Her anion gap normalized and her mental status improved back to baseline. No other clear precipitant for DKA i dentified. As an outpatient she was on SGLT2 as well as GLP-1 and this was potentially thought to contribute to her euglycemic DKA. Her prior Jardiance, Ozempic was held on discharge. She was discharged on her prior outpatient Lantus and insulin pump regimen with plans to follow-up with endocrinology for further discussion regarding her diabetes management. From a cardiac standpoint she was discharged on DAPT with aspirin, clopidogrel. She will follow-up with Dr. Villarreal for her ongoing cardiac care. Discharge Instructions Home Medications blood sugar diagnostic (Accu-Chek Guide test strips) #50 ea 07/24/20 [Rx Confirmed 12/16/23] blood-glucose meter (Accu-Chek Guide Glucose Meter) #1 ea 07/24/20 [Rx Confirmed 12/16/23] blood-glucose sensor (Dexcom G6 Sensor device) #3 ea 08/06/21 [Rx Confirmed 12/16/23] blood-glucose transmitter (Dexcom G6 Transmitter device) #1 ea 08/06/21 [Rx Confirmed 12/16/23] aspirin 81 mg tablet,delayed release 81 mg PO DAILY 11/22/24 [History Confirmed 11/22/24] cyanocobalamin (vitamin B-12) 1,000 mcg/mL injection solution 1,000 mcg subcut DAILY 11/22/24 [History Confirmed 11/22/24] escitalopram oxalate 5 mg tablet 5 mg PO DAILY 11/22/24 [History Confirmed 11/22/24] insulin glargine 100 unit/mL (3 mL) subcutaneous pen (Basaglar KwikPen U-100 Insulin) 16 unit subcut QAM 11/22/24 [History Confirmed 11/23/24] insulin aspart U-100 100 unit/mL subcutaneous solution (Novolog U-100 Insulin aspart) 1 sliding scale dose continuous subcutaneous infusion USEASDIRECTD 11/23/24 [History Confirmed 11/23/24] clopidogrel 75 mg tablet 75 mg PO QAM #30 tabs 11/24/24 [Rx] nitroglycerin 0.4 mg sublingual tablet (Nitrostat) 0.4 mg sublingual Q5M PRN chest pain #30 tabs 11/24/24 [Rx] rosuvastatin 20 mg tablet 20 mg PO DAILY #30 tabs 11/24/24 [Rx] Coding Level of Care Code 29930 INP/OBS DISCH >30 MIN Diagnoses Coronary artery disease I25.10
== END 2024-11-24 11:00 | disposition home or self-care (01) | DRG 981 ==
LOC: 1E 07:02 → CC 07:02 → SUATTDRO 14:45 → 2S 11-23 11:02